=== PATIENT | male | born 1940 | race Caucasian/White ===

== ENCOUNTER 2023-10-09 15:45 | Inpatient (IN) | payer MEDICARE, OTHER, SELFPAY ==
[2023-10-09] VITALS (10 sets, daily range): BP systolic 103–178; BP diastolic 56–114; BMI 41.7
[2023-10-09 12:04] LABS: COVID-19 Antigen Negative (Negative)
[2023-10-09 12:05] LABS: Lactic Acid 1.5 mmol/L (0.7-2.0)
[2023-10-09 12:13] LABS: ALT (SGPT) 20 U/L (0-50); AST (SGOT) 28 U/L (17-59); Alkaline Phosphatase 119 U/L (38-126); Blood Urea Nitrogen 22 mg/dl (9-20); Calcium 8.7 mg/dl (8.4-10.2); Carbon Dioxide 28 mmol/L (22-30); Chloride 97 mmol/L (98-107); Glucose 128 mg/dl (70-99); Sodium 135 mmol/L (135-145); Total Bilirubin 0.8 mg/dl (0.2-1.3); Total Protein 7.3 g/dl (6.3-8.2); eGFR 45.91
[2023-10-09 12:44] LABS: % Basophils 0.6 % (0-2); % Immature Granulocytes 0.6 % (0-0.5); % Lymphocytes 8.9 % (20.5-51.1); % Monocytes 9.4 % (1.7-9.3); % Neutrophils 80.5 % (42.2-75.2); Absolute Lymphocytes 0.5 10^3/uL (1.2-3.4); Absolute Monocytes 0.5 10^3/uL (0.1-0.6); Absolute Neutrophils 4.4 10^3/uL (1.4-6.5); Hematocrit 41.1 % (39.0-52.0); Hemoglobin 13.9 g/dL (13.0-18.0); Mean Corp Hgb Conc. 33.8 g/dL (33.0-37.0); Mean Corpuscular Hgb 30.2 pg (27.0-31.0); Mean Corpuscular Volume 89.3 fL (80.0-94.0); Mean Platelet Volume 8.7 fL (7.4-10.4); Nucleated Red Blood Cells % 0 % (-); Platelet Count 181 10^3/uL (130-400); Red Cell Dist. Width 13.5 % (11.5-14.5); White Blood Cell Count 5.4 10^3/uL (4.8-10.8)
[2023-10-09] MEDS: VENTOLIN NEBULES 7.5 MG INH (13:14)
[2023-10-09] MEDS: DUONEB 3 ML INH ×2 (13:14→20:38)
[2023-10-09] MEDS: DECADRON 52.5 MG IV (13:30)
--- NOTE | 2023-10-09 14:15 | ED.GENMED ---
History of Present Illness
General
Chief Complaint: Cold/Flu/URI Symptoms
Source: patient and spouse
Exam Limitations: none
Time Seen by Provider: 10/09/23 12:18
Travel History
Have you had any contact with someone who has COVID-19?: No
Do you have any symptoms of coronavirus? Fever > 100 degrees, chills, cough, shortness of breath, sore throat, loss of taste or smell, muscle aches, or headache?: No
History of Present Illness
History of Present Illness:
Increase shortness of breath cough, weakness. Sore throat. Progressive over the last week.
Past History
Past History
ED Past Medical History: Arrthythmia (Atrial fib), Asthma, CAD, Cancer (renal cell carcinoma on the right), CHF, COPD, HTN, Hypercholesterolemia, NIDDM, [place], Other (Patton's esophagitis, rectal bleeding) and Other (obstructive Sleep apnea,
pneumonia, edema, diverticulitis, stomach ulcers, arthritis, PNA); Negative Renal failure (stage III a)
ED Past Surgical History: Cardiac (PTCA, cardioversion 2019), Tonsilectomy, Urological (right nephrectomy secondary to renal cell carcinoma) and Other (rectal Fistula surgery)
Social History
Tobacco: Non-smoker
Alcohol: None
Drug: None
Personal:
Living: with family
Employment: Retired
Family History
Family History: Other
Review of Systems
Review of Systems
All Other Systems: Not applicable
Respiratory: Reports cough; Denies hemoptysis
Cardiac: Denies chest pain
Phy Exam
Physical Exam
Physical Exam:
GENERAL: Alert. Erythematous cheeks. Initially mildly lethargic lying flat however sitting up after multiple nebulizers appears more alert
EYE: Orbits normal.
NECK: Supple, no significant adenopathy.
ENT: Pharynx without erythema
CARDIAC: Regular rate and rhythm without any obvious murmurs.
LUNGS: Diffuse expiratory wheezing and decreased breath sounds diffusely
ABDOMEN: Soft, without focal tenderness or distention
NEUROLOGICAL: Alert and oriented , grossly non-focal
SKIN: Warm and dry, no rash or lesion, no discoloration, skin intact.
MUSCULOSKELETAL: Mild edema bilaterally
PSYCH: Normal and appropriate interaction.
Course
Orders/Labs/Results
Orders:
Orders
10/09/23 11:29
CR Chest - 2 Views Urgent
Comment:
Reason For Exam: cough
10/09/23 11:37
COVID-19 Antigen Urgent
Source: Nasal Swab
Complete Blood Count/With Diff Urgent
Comprehensive Metabolic Panel Urgent
Lactic Acid Urgent
Blood Culture Urgent
MELISSA Source: Blood/Venous
Specimen Description:
Influenza A+B Rapid Molecular Urgent
MELISSA Source: Nasal Swab
Specimen Description:
10/09/23 13:09
Albuterol Sulfate [Ventolin Nebules] 7.5 mg INH R NOW STA
Ipratropium/Albuterol Sulfate [Duoneb] 3 ml INH R NOW STA
10/09/23 13:16
Dexamethasone Sod Phosphate [Decadron] 10 mg 0.9% Sodium Chloride 50 ml [Nss] 50 ml IV ONCE
Abnormal Lab Results
10/09/23
11:37
RBC 4.60 L 10^6/uL
(4.70-6.10)
Absolute Lymphs (auto) 0.5 L 10^3/uL
(1.2-3.4)
Immature Gran % 0.6 H %
(0-0.5)
Neutrophils % 80.5 H %
(42.2-75.2)
Lymphocytes % 8.9 L %
(20.5-51.1)
Monocytes % 9.4 H %
(1.7-9.3)
Chloride 97 L mmol/L
(98-107)
BUN 22 H mg/dl
(9-20)
Creatinine 1.5 H mg/dL
(0.7-1.3)
Glucose 128 H mg/dl
(70-99)
10/09/23 11:37
10/09/23 11:37
Vital Signs
Initial and Last Documented VS:
Initial Vital Signs
Temp Pulse Resp BP Pulse Ox
99.7 F 82 20 146/114 92
10/09/23 11:30 10/09/23 11:30 10/09/23 11:30 10/09/23 11:30 10/09/23 11:30
Last Documented Vital Signs
Temp Pulse Resp BP Pulse Ox
99.7 F 88 26 144/83 96
10/09/23 11:30 10/09/23 14:00 10/09/23 13:15 10/09/23 14:00 10/09/23 14:00
*Radiology
Radiology exam reviewed: radiology read reviewed (Negative)
*Pulse Oximetry
Patient hypoxic: yes
*Donor Floor Technician Interpretation
Rate: normal
Interpretation: normal
Heart Rate: 80
*Critical Care Note
Total Time (30-74mins, 75-104mins- exclusive of procedures): Not Applicable
Data Reviewed
Review of Other/Old Records Reveals: Labs and Records
Update Note
Update Note:
1420... Patient doing better however still diffuse expiratory wheezing. Pulse ox 94% but on extra oxygen.
ED Attending Note
-
Portions of this chart may have been created with voice recognition software.� Occasional wrong word or��sound alike� substitutions may have occurred due to the inherent limitations of voice recognition software.
Discharge Plan
Departure
Prescriptions:
No Action
atorvastatin 40 MG tablet
40 mg PO HS
Xarelto 20 MG tablet
20 mg PO QPM
Hold Instructions: Resume on 02/23/22.
coenzyme N30-eigpcgh E [Co Q-10 (with Vit E)] 1 EACH capsule
1 ea PO DAILY
mesalamine [Apriso] 0.375 GM capsule,extended release 24hr
0.375 g PO BID
pantoprazole 40 MG tablet,delayed release (DR/EC)
40 mg PO DAILY
nitroglycerin 0.4 MG tablet, sublingual
0.4 mg sublingual PRN PRN (Reason: chest pain)
potassium chloride 10 MEQ tablet,ER particles/crystals
10 meq PO DAILY
melatonin 5 mg Tablet
5 mg PO HS Qty: 0
fluticasone furoate-vilanterol [Breo Ellipta] 1 EACH blister with device
1 puff inhalation R DAILY
dofetilide 250 MCG capsule
250 mcg PO BID
Patient Comments:
02/13/22 pt is extremely adamant that he needs his second dose at 7 pm and not a minute later
dofetilide 125 MCG capsule
125 mcg PO BID
Patient Comments:
02/13/22 pt is extremely adamant that he needs his second dose at 7 pm and not a minute later
furosemide 40 mg tablet
40 mg PO DAILY
carvedilol 6.25 mg tablet
6.25 mg PO BID
glimepiride 2 mg tablet
2 mg PO DAILY
triamcinolone acetonide 0.1 % lotion
1 applic TOPICAL BID PRN (Reason: rash on body)
fluoride (sodium) [Sodium Fluoride 5000 Plus] 1.1 % cream
1 applic dental DAILY
sennosides-docusate sodium 8.6-50 mg Tablet
1 tab PO DAILYPRN PRN (Reason: constpation) Qty: 20 0RF
lisinopril 5 mg Tablet
5 mg PO DAILY Qty: 30 0RF
polyethylene glycol 3350 17 gram Powder In Packet
17 grams PO DAILY Qty: 30 0RF
cyanocobalamin (vitamin B-12) 1,000 mcg Tablet
1,000 mcg PO DAILY Qty: 30 0RF
amlodipine 5 mg Tablet
5 mg PO DAILY Qty: 30 0RF
meclizine 25 mg Tablet
25 mg PO Q8HPRN PRN (Reason: Vertigo or dizziness) Qty: 30 0RF
Referrals:
Macy Spring, [Family Provider] -
Interventions
Interventions:
*Risk Screen - Suicide Last Done: 10/09/23 11:30
*General Assessment Last Done: 10/09/23 11:30
*Neglect/Abuse Screening Last Done: 10/09/23 11:30
ED- Fall Risk Assessment Last Done: 10/09/23 12:14
*ED COVID-19 Vaccine History Last Done: 10/09/23 11:30
ED- Pulmonary Assessment Last Done: 10/09/23 12:14
--- NOTE | 2023-10-09 14:43 | PHANOTE ---
med rec note- patient said he does not know his medication, and to call his on file Amador, called both home and cell phone but no picked up. left message for call back
--- NOTE | 2023-10-09 15:25 | HPS.HSE ---
Family Physician
-
Family Physician: Macy Spring
Chief Complaint
-
Sore throat, cough, and shortness of breath
History of Present Illness
Patient started to have dry throat 67 days ago and then progressed to become very sore and his main symptom is sore throat. Following that he started to have cough but not much phlegm. With coughing he was also having abdominal pain.
He started become short of breath and he started to hear wheezing. His temperature was 2 degrees above his normal baseline. No chills.
He saw PCP was put on oral antibiotics which was just switched to doxycycline since yesterday.
He has a history of COPD. He is a non-smoker. He is on inhaler. He also has nebulizer which he uses as needed basis. Also had a prior history of CHF but weight has been stable and did not notice any leg edema.
Denies any chest pain or shortness of breath.
His COVID-19 and flu testing in the ER is negative. Chest x-ray shows no evidence of pneumonia. He received nebulizers and steroids in the ER with improvement.
Medical History
Past Medical History
Past Medical History: Reports Arrhythmia (afib s/p prior ablation), CAD ([place]), CHF, COPD, HTN, NIDDM and Renal Failure
Past Surgical History: Reports Tonsilectomy
Additional Past Surgical History:
Right nephrectomy for cancer
Social History
Tobacco: Non-smoker
Alcohol: None
Drug: None
Living: With Family
Family History
Family History: Not pertinent
Allergies / Home Medications
Allergies reflects when Allergies were last updated in [facility].
Home Medications with original date entered in [facility]
Allergy/Medication List:
Allergies
Allergy/AdvReac Type Severity Reaction Status Date / Time
grass pollen Allergy Itching Verified 10/09/23 11:34
Iodinated Contrast Media Allergy 'happened Verified 10/09/23 11:34
[Iodinated Contrast- Oral long ago'
and IV Dye]
Penicillins Allergy 'happened Verified 10/09/23 11:34
at least
50 years
ago'
tree and shrub pollen Allergy Itching Verified 10/09/23 11:34
Home Medications
atorvastatin 40 mg tablet 40 mg PO HS High cholesterol 08/16/14
rivaroxaban 20 mg tablet (Xarelto) 20 mg PO QPM Blood clot prevention/tx 04/16/18
coenzyme E44-nncefcw E 100 mg-5 unit capsule (Co Q-10 (with Vit E)) 1 ea PO DAILY Supplement 08/21/19
mesalamine 0.375 gram capsule,extended release 24 hr (Apriso) 0.375 g PO BID Gastrointestinal issue 08/21/19
pantoprazole 40 mg tablet,delayed release 40 mg PO DAILY Gastrointestinal issue 12/10/19
potassium chloride 10 mEq tablet,extended release(part/cryst) 10 meq PO DAILY ELECTROLYTE REPLETION 01/06/20
dofetilide 250 mcg capsule 250 mcg PO BID Arrhythmia 09/29/21
fluticasone furoate 100 mcg-vilanterol 25 mcg/dose inhalation powder (Breo Ellipta) 1 puff inhalation R DAILY Lung/breathing issues 09/29/21
dofetilide 125 mcg capsule 125 mcg PO BID Arrhythmia 11/27/21
carvedilol 6.25 mg tablet 6.25 mg PO BID Heart Failure 02/13/22
furosemide 40 mg tablet 40 mg PO DAILY Fluid retention/Swelling 02/13/22
amlodipine 5 mg tablet 5 mg PO DAILY #30 tabs 02/20/22
lisinopril 5 mg tablet 5 mg PO DAILY #30 tabs 02/20/22
benzonatate 200 mg capsule 200 mg PO BIDPRN PRN cough 10/09/23
doxycycline hyclate 100 mg tablet 100 mg PO BID 10/09/23
glipizide 5 mg tablet 5 mg PO DAILY 10/09/23
linagliptin 5 mg tablet (Tradjenta) 5 mg PO DAILY 10/09/23
Review of Systems
-
A 12 point ROS was completed and negative except as noted: Yes
Physical Exam
Vital Signs
Vital Signs
Temp Pulse Resp BP Pulse Ox
99.7 F 87 26 144/83 94
10/09/23 11:30 10/09/23 14:45 10/09/23 13:15 10/09/23 14:00 10/09/23 14:45
Physical Exam
General: No Apparent Distress
HEENT: Moist mucous membranes
Respiratory: Non Labored Respirations; No Wheezes (currently), Crackles or Accessory Resp Muscle Use
Cardiac: S1/S2 and Regular Rhythm; No Tachycardia
GI: Soft and Non Tender
Neuro: AO x 3
Psych: Calm
Laboratory Results
-
10/09/23 11:37
10/09/23 11:37
Laboratory Results
Lactic Acid 1.5 mmol/L (0.7-2.0) 10/09/23 11:37
Total Bilirubin 0.8 mg/dl (0.2-1.3) 10/09/23 11:37
AST 28 U/L (17-59) 10/09/23 11:37
ALT 20 U/L (0-50) 10/09/23 11:37
Alkaline Phosphatase 119 U/L (38-126) 10/09/23 11:37
Data Reviewed
-
Diagnostic Radiology: Report Reviewed by me (cxr)
Lab Data: Labs Reviewed by me
Impression/Plan
-
Acute sore throat with cough , shortness of breath and wheezing -suspect Respiratory illness/acute bronchitis precipitating a COPD flare. COVID-19/flu negative. Admit to hospital. Start on steroids and nebulizers. Continue with doxycycline which
was initiated by PCP yesterday. Follow culture data. Chest x-ray without evidence of pneumonia.
Chronic CHF with reduced EF -last echocardiogram and January 2022 shows EF of 35 to 40%. Clinically euvolemic. Continue with his home dose of Lasix
Atrial fibrillation -unknown type -clinical seems to be in sinus rhythm. Check abnormal EKG. Follow on telemetry. Continue with anticoagulation and digoxin.
CAD -status post prior [place]. No coronary stenting or CABG. Asymptomatic without chest pain. Continue with his beta-israel, statins . On anticoagulation with Xarelto for A-fib.
Hypertension-continue with his home medication
Diabetes mellitus type 2-continue with his oral hypoglycemic agents
CKD 3 Cr close to baseline -continue to follow
Status post prior right nephrectomy for cancer
Full code
[2023-10-09 16:32] LABS: NT-proBNP 927 pg/ml
[2023-10-09] MEDS: DUONEB INH (17:47)
[2023-10-09] MEDS: TIKOSYN 250 MCG PO (19:41)
[2023-10-09] MEDS: TIKOSYN 125 MCG PO (19:41)
[2023-10-09] MEDS: SYMBICORT 160/4.5 MCG INHALER 2 PUFF INH (20:38)
[2023-10-09] MEDS: COREG 6.25 MG PO (21:06)
[2023-10-09] MEDS: VIBRAMYCIN 100 MG PO (21:07)
[2023-10-09] MEDS: LIPITOR 40 MG PO (21:07)
[2023-10-09] MEDS: DECADRON 4 MG IV (21:10)
[2023-10-09] MEDS: XARELTO 20 MG PO (21:16)
[2023-10-09] MEDS: ROBITUSSIN DM 5 ML PO (21:17)
[2023-10-09 23:34] LABS: Glucose - Point of Care 248 mg/dl (70-99)
[2023-10-10] VITALS (7 sets, daily range): BP systolic 111–141; BP diastolic 48–76; PULSE 64; O2SAT 95; BMI 41.7; BMI 39.8
--- NOTE | 2023-10-10 02:05 | W.PN.UPDATE ---
Update Note
Progress Note Update
Nurse reports patient to be diaphoretic with stable VS. Patient denies any chest pain or SOB. EKG done due to Tachy rhythm on monitor. NSR with left bundle branch block noted as noted before. Will order labs for AM.
will order AccuCheck BID as noted BS 248. hx DM.
[2023-10-10] MEDS: DECADRON 4 MG IV ×4 (02:16→20:16)
[2023-10-10] MEDS: ANESTHETIC LOZENGE 1 LOZENGE PO ×3 (03:49→20:20)
--- NOTE | 2023-10-10 05:03 | PTCARENOTE ---
Pt very diaphoretic, sugar 248 pt drowsy but arouseable, BP 132/58- temp 97.4. EKG completed, House DISTRIBUTION SYSTEM OPERATOR aware order for accuchecks BID and mag level in AM.
--- NOTE | 2023-10-10 05:41 | PTCARENOTE ---
Pt 7 beat run pvcs, strip mounted on chart. House MASON LINER aware for labs this AM
[2023-10-10] MEDS: DUONEB 3 ML INH ×4 (07:39→19:49)
[2023-10-10] MEDS: SYMBICORT 160/4.5 MCG INHALER 2 PUFF INH ×2 (07:40→19:49)
[2023-10-10 07:41] LABS: Glucose - Point of Care 190 mg/dl (70-99)
[2023-10-10 08:03] LABS: Blood Urea Nitrogen 34 mg/dl (9-20); Calcium 8.2 mg/dl (8.4-10.2); Carbon Dioxide 22 mmol/L (22-30); Chloride 101 mmol/L (98-107); Estimated Creatinine Clearance 41 ml/min; Glucose 212 mg/dl (70-99); Potassium 3.9 mmol/L (3.5-5.1); Sodium 133 mmol/L (135-145); eGFR 42.49
[2023-10-10] MEDS: GLUCOTROL 5 MG PO (08:09)
[2023-10-10] MEDS: FLUSH (NSS) 1 FLUSH IV ×2 (08:09→14:49)
[2023-10-10] MEDS: TIKOSYN 250 MCG PO ×2 (08:09→20:18)
[2023-10-10] MEDS: PROTONIX 40 MG PO (08:10)
[2023-10-10] MEDS: LASIX 40 MG PO (08:10)
[2023-10-10] MEDS: TIKOSYN 125 MCG PO ×2 (08:10→20:18)
[2023-10-10] MEDS: NORVASC 5 MG PO (08:10)
[2023-10-10] MEDS: VIBRAMYCIN 100 MG PO ×2 (08:11→20:19)
[2023-10-10] MEDS: JANUVIA 100 MG PO (08:11)
[2023-10-10] MEDS: KCL 10 MEQ PO (08:11)
[2023-10-10] MEDS: COREG 6.25 MG PO ×2 (08:11→20:26)
[2023-10-10] MEDS: ZESTRIL 5 MG PO (08:11)
--- NOTE | 2023-10-10 11:11 | W.PN.HOSP.TC ---
Today's Communication/Plan
-
Continue with current treatment
If continued improvement likely dc in am
Assessment / Plan
Assessment / Plan
Acute sore throat with cough , shortness of breath and wheezing -suspect Respiratory illness/acute bronchitis precipitating a COPD flare.� COVID-19/flu negative.� Some improvement .Off of O2 this am.cw on steroids and nebulizers.� Continue with
doxycycline which was initiated by PCP 10/07.� Follow culture data.� Chest x-ray without evidence of pneumonia.
Chronic CHF with reduced EF -last echocardiogram and January 2022 shows EF of 35 to 40%.� Clinically euvolemic.� Continue with his home dose of Lasix
Atrial fibrillation -unknown type -clinical seems to be in sinus rhythm.� EKG in SR with chronic LBBB.� Follow on telemetry.� Continue with anticoagulation and digoxin.
CAD -status post prior [place].� No coronary stenting or CABG.� Asymptomatic without chest pain.� Continue with his beta-israel, statins .� On anticoagulation with Xarelto for A-fib.
Hypertension-continue with his home medication
Diabetes mellitus type 2-continue with his oral hypoglycemic agents
CKD 3 Cr close to baseline -continue to follow
Status post prior right nephrectomy for cancer
Full code
Anticipated Discharge: 24 - 48 hours
Subjective/Interval History
-
Date of Service: October 10, 2023
Feels improved with regards to cough and breathing.
Still has some sore throat and point to tracheal area not pharynx
Objective Data
-
Labs:
Laboratory Results
10/10/23
06:45
Sodium 133 L
Potassium 3.9
Chloride 101
Carbon Dioxide 22
BUN 34 H
Creatinine 1.6 H
Glucose 212 H
Calcium 8.2 L
Vital Signs:
Vital Signs
Temp Pulse Resp BP Pulse Ox
97.6 F 64 18 116/69 95
10/10/23 10:45 10/10/23 10:45 10/10/23 10:45 10/10/23 10:45 10/10/23 10:45
I&O
10/09/23 10/10/23 10/11/23
06:59 06:59 06:59
Output Total 200 / 200
Balance -200 / -200
Review of Systems
-
Constitutional: Denies Fever
Cardiac: Denies Chest Pain
Abdomen/GI: Denies Abdominal Pain, Nausea or Vomiting
Neuro: Denies Dizzy
Physical Exam
-
General: No Apparent Distress
HEENT: Moist Mucous Membranes and Other (no anterior cervical tenderness)
Respiratory: Clear to Auscultation; Negative Wheezes or Crackles
Cardiac: Regular Rhythm and S1/S2
GI: Soft
Neuro: AO x 3
Psych: Calm
Data Reviewed
-
Labs: Labs Reviewed by me
[2023-10-10 11:57] LABS: Glucose - Point of Care 231 mg/dl (70-99)
[2023-10-10] MEDS: NON-FORMULARY ITEM PO ×2 (15:00→20:17)
[2023-10-10] MEDS: NON-FORMULARY ITEM 0.375 GRAMS PO (15:16)
--- NOTE | 2023-10-10 16:13 | CM ---
Alert awake oriented patient who lives with his with Amador who lives in a 2 story home with 2 step to enter and 14 steps bed and bathroom. He is independent in driving and in all activities of daily living.He was offered Vn he declined need.Hx of
CPAP usage not anymore.
[facility] hx/Brady history
Pharmacy [facility]
PCP DR Mcgowan
PLAN Home Declined VN
[2023-10-10 16:50] LABS: Glucose - Point of Care 259 mg/dl (70-99)
--- NOTE | 2023-10-10 16:56 | PTCARENOTE ---
Pt AAO x3, MARIN; OOB to chair for most of shift; ambulatory to BR; denies weakness/dizziness. VSS. Telemetry:NSR with first degree AVB, BBC. On room air- pulse ox 95%, no c/o SOB. Abd large, soft, ainsley PO well. Voiding in BR without difficulty,
not monitoring output. resting comfortably at present, no c/o. Will continue to monitor.
[2023-10-10] MEDS: XARELTO 20 MG PO (18:26)
[2023-10-10] MEDS: TYLENOL 650 MG PO (20:19)
[2023-10-10 21:09] LABS: Glucose - Point of Care 252 mg/dl (70-99)
[2023-10-10] MEDS: LIPITOR 40 MG PO (21:26)
[2023-10-10] MEDS: ROBITUSSIN DM 5 ML PO (23:17)
[2023-10-11] MEDS: DECADRON 4 MG IV ×3 (03:16→17:04)
[2023-10-11 03:46] VITALS: BP 138/71
[2023-10-11 05:18] VITALS: BMI 40.1
[2023-10-11] MEDS: DUONEB 3 ML INH ×4 (07:29→19:26)
[2023-10-11] MEDS: SYMBICORT 160/4.5 MCG INHALER 2 PUFF INH ×2 (07:33→19:26)
[2023-10-11 07:35] VITALS: BP 120/63
[2023-10-11 07:36] LABS: Glucose - Point of Care 193 mg/dl (70-99)
[2023-10-11 07:51] VITALS: BMI 40.1
[2023-10-11] MEDS: PROTONIX 40 MG PO (08:08)
[2023-10-11] MEDS: GLUCOTROL 5 MG PO (08:08)
[2023-10-11] MEDS: TIKOSYN 125 MCG PO ×2 (08:09→21:53)
[2023-10-11] MEDS: TIKOSYN 250 MCG PO ×2 (08:09→21:53)
[2023-10-11] MEDS: COREG 6.25 MG PO ×2 (08:09→21:52)
[2023-10-11] MEDS: JANUVIA 100 MG PO (08:09)
[2023-10-11] MEDS: ZESTRIL 5 MG PO (08:09)
[2023-10-11] MEDS: KCL 10 MEQ PO (08:10)
[2023-10-11] MEDS: VIBRAMYCIN 100 MG PO ×2 (08:10→21:52)
[2023-10-11] MEDS: LASIX 40 MG PO (08:10)
[2023-10-11] MEDS: NORVASC 5 MG PO (08:10)
[2023-10-11] MEDS: NON-FORMULARY ITEM 0.375 GRAMS PO (08:13)
[2023-10-11] MEDS: ANESTHETIC LOZENGE 1 LOZENGE PO ×3 (08:34→21:52)
--- NOTE | 2023-10-11 10:51 | W.PN.HOSP.TC ---
Today's Communication/Plan
-
Wean steroids
CW nebs and abx
Add mucinex
CW antitussives
Assessment / Plan
Assessment / Plan
Acute sore throat with cough , shortness of breath and wheezing -suspect Respiratory illness/acute bronchitis precipitating a COPD flare.� COVID-19/flu negative.� Some improvement .Off of O2 this am.cw on steroids-wean and nebulizers.� Continue with
doxycycline which was initiated by PCP 10/07.� Follow culture data.� Chest x-ray without evidence of pneumonia.
Added mucinex.
Chronic CHF with reduced EF -last echocardiogram and January 2022 shows EF of 35 to 40%.� Clinically euvolemic.� Continue with his home dose of Lasix.Follow Wt daily.
Atrial fibrillation -unknown type -clinical seems to be in sinus rhythm.� EKG in SR with chronic LBBB.� Follow on telemetry.� Continue with anticoagulation and digoxin.
CAD -status post prior [place].� No coronary stenting or CABG.� Asymptomatic without chest pain.� Continue with his beta-israel, statins .� On anticoagulation with Xarelto for A-fib.
Hypertension-continue with his home medication
Diabetes mellitus type 2-continue with his oral hypoglycemic agents and SSI
CKD 3 Cr close to baseline -continue to follow
Status post prior right nephrectomy for cancer
Full code
CW PT eval .
Anticipated Discharge: 24 - 48 hours
Subjective/Interval History
-
Date of Service: October 11, 2023
Sore throat now getting better.
Cough present but difficult to expectorate
Breathing better ;remains off of O2
Objective Data
-
Vital Signs:
Vital Signs
Temp Pulse Resp BP Pulse Ox
97.6 F 66 18 120/63 93
10/11/23 07:35 10/11/23 08:09 10/11/23 07:41 10/11/23 08:09 10/11/23 07:41
I&O
10/10/23 10/11/23 10/12/23
06:59 06:59 06:59
Intake Total 960 / 960
Output Total 200 / 200
Balance 760 / 760
Review of Systems
-
Constitutional: Denies Fever or Chills
Cardiac: Denies Chest Pain
Abdomen/GI: Denies Abdominal Pain, Nausea or Vomiting
Neuro: Denies Dizzy
Physical Exam
-
General: No Apparent Distress
HEENT: Moist Mucous Membranes
Respiratory: Rhonchi (BL) and Non Labored Respirations; Negative Accessory Resp Muscle Use
Cardiac: Regular Rhythm and S1/S2
Neuro: AO x 3
Psych: Calm; Negative Confused
[2023-10-11 11:26] VITALS: BP 126/60
--- NOTE | 2023-10-11 11:53 | PN.CDI ---
CDI
- -
CDI:
Physician Documentation Request
Admit Date: 10/09/23 15:45
Dear Doctor Evangelist,
Clinical Indicators:
Height: 5 ft 6 inch
Weight: 257 (10/08)
BMI: 41.7 (10/08)
If possible, please provide an associated diagnosis related to the abnormal BMI, such as:
BMI > or = to 40
Overweight
Obesity:
Due to excess calories
Drug induced
Due to other cause
Severe or morbid obesity:
With alveolar hypoventilation (Obesity hypoventilation syndrome)
Without alveolar hypoventilation
- BMI is not significant
- Other
- Unable to determine
Use of terms such as suspected, likely, concern for, or probable (associated with a specific diagnosis that is being evaluated, monitored, or treated as if it exists) are acceptable and can be coded in the inpatient setting, when documented at the
time of discharge.
Thank you,
Quynh Wells RN, BSN
CDI Specialist
tiger text
Please use your independent medical judgment in providing your response.
[2023-10-11] MEDS: MUCINEX 600 MG PO ×2 (12:59→21:52)
[2023-10-11 15:27] VITALS: BP 128/59
[2023-10-11] MEDS: XARELTO 20 MG PO (17:04)
[2023-10-11 19:21] VITALS: BP 114/57
[2023-10-11 21:09] LABS: Glucose - Point of Care 249 mg/dl (70-99)
[2023-10-11] MEDS: LIPITOR 40 MG PO (21:53)
[2023-10-11] MEDS: NON-FORMULARY ITEM PO (21:56)
[2023-10-11 23:44] VITALS: BP 113/48
[2023-10-12] MEDS: DECADRON 4 MG IV ×4 (01:06→23:09)
[2023-10-12 03:44] VITALS: BP 124/61
[2023-10-12] MEDS: ROBITUSSIN DM 5 ML PO (03:47)
[2023-10-12 05:45] VITALS: BMI 39.9
[2023-10-12 06:55] LABS: Blood Urea Nitrogen 59 mg/dl (9-20); Calcium 8.1 mg/dl (8.4-10.2); Carbon Dioxide 22 mmol/L (22-30); Chloride 103 mmol/L (98-107); Estimated Creatinine Clearance 39 ml/min; Glucose 194 mg/dl (70-99); Sodium 136 mmol/L (135-145); eGFR 39.51
[2023-10-12 07:14] LABS: Glucose - Point of Care 211 mg/dl (70-99)
[2023-10-12 07:15] VITALS: BP 128/67
[2023-10-12] MEDS: DUONEB 3 ML INH ×4 (07:40→19:23)
[2023-10-12] MEDS: SYMBICORT 160/4.5 MCG INHALER 2 PUFF INH ×2 (07:40→19:22)
[2023-10-12] MEDS: GLUCOTROL 5 MG PO (08:17)
[2023-10-12] MEDS: PROTONIX 40 MG PO (08:17)
[2023-10-12] MEDS: JANUVIA 100 MG PO (08:17)
[2023-10-12] MEDS: MUCINEX 600 MG PO ×2 (08:17→20:00)
[2023-10-12] MEDS: VIBRAMYCIN 100 MG PO ×2 (08:17→20:00)
[2023-10-12] MEDS: KCL 10 MEQ PO (08:18)
[2023-10-12] MEDS: COREG 6.25 MG PO ×2 (08:18→20:00)
[2023-10-12] MEDS: NORVASC 5 MG PO (08:19)
[2023-10-12] MEDS: ZESTRIL 5 MG PO (08:19)
[2023-10-12] MEDS: LASIX 40 MG PO (08:20)
[2023-10-12] MEDS: NON-FORMULARY ITEM 0.375 GRAMS PO (08:21)
[2023-10-12] MEDS: TIKOSYN 125 MCG PO ×2 (08:58→19:59)
[2023-10-12] MEDS: TIKOSYN 250 MCG PO ×2 (08:58→19:59)
[2023-10-12 11:10] VITALS: BP 117/54
--- NOTE | 2023-10-12 12:35 | W.PN.HOSP.TC ---
Addendum entered and electronically signed by Jamal Blanca MD 10/12/23 18:04:
BMI 41.7 indicating obesity due to excess calories
Original Note:
Today's Communication/Plan
-
Continue with current dose of steroids without taper. Continue nebulizers and doxycycline.
Assessment / Plan
Assessment / Plan
Acute sore throat with cough , shortness of breath and wheezing -suspect respiratory illness/acute bronchitis precipitating a COPD flare.� COVID-19/flu negative.� Some continued improvement .Remains Off of O2 .cw on steroids without taper and
nebulizers.� Continue with doxycycline which was initiated by PCP 10/07.� Follow culture data.� Chest x-ray without evidence of pneumonia.
cw mucinex.
Chronic CHF with reduced EF -last echocardiogram and January 2022 shows EF of 35 to 40%.� Clinically euvolemic.Wt stable. Continue with his home dose of Lasix.Follow Wt daily.
Atrial fibrillation -unknown type -clinical seems to be in sinus rhythm.� EKG in SR with chronic LBBB.� Follow on telemetry.� Continue with anticoagulation and digoxin.
CAD -status post prior [place].� No coronary stenting or CABG.� Asymptomatic without chest pain.� Continue with his beta-israel, statins .� On anticoagulation with Xarelto for A-fib.
Hypertension-continue with his home medication
Diabetes mellitus type 2-continue with his oral hypoglycemic agents and SSI
CKD 3 Cr close to baseline -continue to follow
Status post prior right nephrectomy for cancer
Full code
CW PT eval .
Anticipated Discharge: 24 - 48 hours
Subjective/Interval History
-
Date of Service: October 12, 2023
Making slow progress-less sore throat, cough improved but persistent. Not short of breath at rest.
No fever or chills.
No chest pains or palpitations.
Objective Data
-
Labs:
Laboratory Results
10/12/23
05:27
Sodium 136
Potassium 4.0
Chloride 103
Carbon Dioxide 22
BUN 59 H
Creatinine 1.7 H
Glucose 194 H
Calcium 8.1 L
Vital Signs:
Vital Signs
Temp Pulse Resp BP Pulse Ox
98 F 65 16 117/54 93
10/12/23 11:10 10/12/23 11:47 10/12/23 11:47 10/12/23 11:10 10/12/23 11:10
I&O
10/11/23 10/12/23 10/13/23
06:59 06:59 06:59
Intake Total 960 / 960 900 / 900
Output Total 200 / 200
Balance 760 / 760 900 / 900
Review of Systems
-
Abdomen/GI: Denies Abdominal Pain, Nausea or Vomiting
Genitourinary: Denies Dysuria
Neuro: Denies Dizzy
Physical Exam
-
General: No Apparent Distress
HEENT: Moist Mucous Membranes
Respiratory: Wheezes (BL) and Non Labored Respirations; Negative Accessory Resp Muscle Use
Cardiac: Regular Rhythm and S1/S2
GI: Soft
Neuro: AO x 3
Psych: Calm; Negative Confused
Data Reviewed
-
Labs: Labs Reviewed by me
[2023-10-12 15:15] VITALS: BP 120/57
[2023-10-12 17:43] LABS: Glucose - Point of Care 278 mg/dl (70-99)
[2023-10-12] MEDS: XARELTO 20 MG PO (17:43)
[2023-10-12 19:32] VITALS: BP 126/64
[2023-10-12] MEDS: LIPITOR 40 MG PO (20:00)
[2023-10-12] MEDS: NON-FORMULARY ITEM PO (20:01)
[2023-10-12 23:05] VITALS: BP 118/61
--- NOTE | 2023-10-13 02:31 | PTCARENOTE ---
Patient awake, He is oriented but confused. He wants to go home now and does not remember who I am. He also took off his heart monitor and is refusing to wear it at this time. At present he is sitting on the side of his bed.
[2023-10-13 03:03] VITALS: BP 127/71
[2023-10-13 05:06] VITALS: BMI 40.2
[2023-10-13 07:04] LABS: Glucose - Point of Care 190 mg/dl (70-99)
[2023-10-13 07:22] VITALS: BP 133/64
[2023-10-13] MEDS: SYMBICORT 160/4.5 MCG INHALER 2 PUFF INH ×2 (07:27→20:39)
[2023-10-13] MEDS: DUONEB 3 ML INH ×4 (07:27→20:38)
[2023-10-13 07:53] LABS: Hemoglobin 12.3 g/dL (13.0-18.0); Mean Corp Hgb Conc. 34.2 g/dL (33.0-37.0); Mean Corpuscular Hgb 30.2 pg (27.0-31.0); Mean Corpuscular Volume 88.5 fL (80.0-94.0); Mean Platelet Volume 9.3 fL (7.4-10.4); Platelet Count 186 10^3/uL (130-400); Red Blood Cell Count 4.07 10^6/uL (4.70-6.10); Red Cell Dist. Width 13.5 % (11.5-14.5)
[2023-10-13] MEDS: ZESTRIL 5 MG PO (08:09)
[2023-10-13] MEDS: NORVASC 5 MG PO (08:12)
[2023-10-13] MEDS: COREG 6.25 MG PO ×2 (08:12→20:09)
[2023-10-13] MEDS: LASIX 40 MG PO (08:13)
[2023-10-13] MEDS: KCL 10 MEQ PO (08:14)
[2023-10-13] MEDS: VIBRAMYCIN 100 MG PO ×2 (08:14→20:10)
[2023-10-13] MEDS: GLUCOTROL 5 MG PO (08:14)
[2023-10-13] MEDS: PROTONIX 40 MG PO (08:15)
[2023-10-13] MEDS: JANUVIA 100 MG PO (08:15)
[2023-10-13] MEDS: MUCINEX 600 MG PO ×2 (08:15→20:10)
[2023-10-13] MEDS: NON-FORMULARY ITEM 0.375 GRAMS PO (08:16)
[2023-10-13] MEDS: DECADRON 4 MG IV ×2 (08:18→20:10)
[2023-10-13] MEDS: TIKOSYN 250 MCG PO (08:19)
[2023-10-13] MEDS: TIKOSYN 125 MCG PO (08:20)
[2023-10-13 08:32] LABS: Blood Urea Nitrogen 56 mg/dl (9-20); Carbon Dioxide 25 mmol/L (22-30); Chloride 105 mmol/L (98-107); Estimated Creatinine Clearance 39 ml/min; Glucose 196 mg/dl (70-99); Potassium 4.1 mmol/L (3.5-5.1); Sodium 135 mmol/L (135-145); eGFR 39.51
[2023-10-13 11:56] VITALS: BP 120/65
--- NOTE | 2023-10-13 12:46 | W.PN.HOSP.TC ---
Today's Communication/Plan
-
seee plan above
Assessment / Plan
Assessment / Plan
Acute sore throat with cough , shortness of breath and wheezing -suspect respiratory illness/acute bronchitis precipitating a COPD flare.� COVID-19/flu negative.� Some continued improvement .Remains Off of O2 .cw on steroids-start taper tocday and
nebulizers.� Continue with doxycycline which was initiated by PCP 10/07.� Follow culture data.� Chest x-ray without evidence of pneumonia.
cw mucinex.
Chronic CHF with reduced EF -last echocardiogram and January 2022 shows EF of 35 to 40%.� Clinically euvolemic.Wt stable ,in fact on lower side. Continue with his home dose of Lasix.Follow Wt daily.
Atrial fibrillation -unknown type -clinical seems to be in sinus rhythm.� EKG in SR with chronic LBBB.� Follow on telemetry.� Continue with anticoagulation and digoxin. On Tikosyn - decrease dose to 125mcg as QTc >500 on this admission ; telemetry
without any ventricular events. Consult cardiology. Repeat EKG for QTc monitoring in a.m. and if still with more than 500 may have to discontinue it.
CAD -status post prior VT.� No coronary stenting or CABG.� Asymptomatic without chest pain.� Continue with his beta-israel, statins .� On anticoagulation with Xarelto for A-fib.
Hypertension-continue with his home medication ;with slight higher than baseline Cr hold ACEI for now and follow
Diabetes mellitus type 2-continue with his oral hypoglycemic agents and SSI
CKD 3 Cr close to baseline -continue to follow
Status post prior right nephrectomy for cancer
Full code
CW PT eval .
DW cardiology today
Anticipated Discharge: Within 24 hours
Subjective/Interval History
-
Date of Service: October 13, 2023
Continued improvement of the sore throat and cough.
Denies shortness of breath. Remains on room air.
No fever or chills.
Objective Data
-
Labs:
Laboratory Results
10/13/23
06:40
WBC 9.0
Hgb 12.3 L
Hct 36.0 L
Plt Count 186
Sodium 135
Potassium 4.1
Chloride 105
Carbon Dioxide 25
BUN 56 H
Creatinine 1.7 H
Glucose 196 H
Calcium 8.0 L
Vital Signs:
Vital Signs
Temp Pulse Resp BP Pulse Ox
97.5 F 55 16 120/65 94
10/13/23 11:56 10/13/23 11:56 10/13/23 11:56 10/13/23 11:56 10/13/23 11:56
I&O
10/12/23 10/13/23 10/14/23
06:59 06:59 06:59
Intake Total 900 / 900 1500 / 1500
Balance 900 / 900 1500 / 1500
Review of Systems
-
Cardiac: Denies Chest Pain
Abdomen/GI: Denies Abdominal Pain, Nausea or Vomiting
Neuro: Denies Dizzy
Physical Exam
-
General: No Apparent Distress
HEENT: Moist Mucous Membranes
Respiratory: Wheezes (faint occasional wheeze in rt lower zone today) and Non Labored Respirations; Negative Accessory Resp Muscle Use
Cardiac: Regular Rhythm and S1/S2
GI: Soft
Neuro: AO x 3
Data Reviewed
-
Labs: Labs Reviewed by me
--- NOTE | 2023-10-13 15:04 | CM ---
Patient seen, reports he is not having a good day. Cardio consulted. CM will continue to follow for discharge planning needs.
Plan; home with , no needs.
[2023-10-13 15:05] VITALS: BP 115/53
--- NOTE | 2023-10-13 15:22 | CON.CAR ---
Consultation
Consultation Request
Date/Time Consultation Requested: 10/13/2023 at 1250
Date/Time Consultation Performed: 10/13/2023 at 1330
Requesting Provider: Jamal Blanca MD
Performing Provider: Chuck Amado DO
Reason for Consultation: Dofetilide, QT prolongation
Medical History
-
Chief Complaint: Cough, Congestion, Sore Throat
History of Present Illness:
Patient is a pleasant 83-year-old male with a past medical history significant for paroxysmal atrial fibrillation status post PVI 2014, CAD status post PCI 2013, heart failure with reduced ejection fraction, COPD, hypertension, diabetes mellitus
type 2, renal cell carcinoma status post nephrectomy who presented due to sore throat and persistent cough who is undergone treatment for upper respiratory infection/acute bronchitis. Cardiology consulted for further discussion regarding dofetilide
dosing. In discussion with patient, since admission, he reports improvement in his sore throat and cough. He denies any chest pain, shortness of breath, palpitations, lightheadedness, dizziness, near-syncope, syncope, PND, orthopnea, or weakness.
He notes persistent production with cough and notes a very thick multicolored mucus. Denies fevers or chills at this time. Patient is non-smoker, no alcohol, no illicits. Patient follows closely with Dr. Adam for cardiovascular care, and
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
Past Medical History
Past Medical History: Other (See HPI)
Past Surgical History: Other (Right nephrectomy)
Social History
Tobacco: Non-Smoker
Alcohol: None
Drug: None
Living: With Family
Family History
Family History: Reviewed & Not Pertinent
Allergies / Home Medications
Allergy/AdvReac Type Severity Reaction Status Date / Time
grass pollen Allergy Itching Verified 10/09/23 11:34
Iodinated Contrast Media Allergy 'happened Verified 10/09/23 11:34
[Iodinated Contrast- Oral long ago'
and IV Dye]
Penicillins Allergy 'happened Verified 10/09/23 11:34
at least
50 years
ago'
tree and shrub pollen Allergy Itching Verified 10/09/23 11:34
Medication Instructions Recorded Confirmed Type
atorvastatin 40 mg tablet 40 mg PO QPM High cholesterol 08/16/14 10/09/23 History
rivaroxaban 20 mg tablet (Xarelto) 20 mg PO QPM Blood clot 04/16/18 10/09/23 History
prevention/tx
mesalamine 0.375 gram 0.375 g PO DAILY Gastrointestinal 08/21/19 10/09/23 History
capsule,extended release 24 hr issue
(Apriso)
pantoprazole 40 mg tablet,delayed 40 mg PO DAILY Gastrointestinal 12/10/19 10/09/23 History
release issue
potassium chloride 10 mEq 10 meq PO DAILY ELECTROLYTE 01/06/20 10/09/23 History
tablet,extended release(part/cryst) REPLETION
dofetilide 250 mcg capsule 250 mcg PO BID Arrhythmia 09/29/21 10/09/23 History
fluticasone furoate 100 1 puff inhalation R DAILY 09/29/21 10/09/23 History
mcg-vilanterol 25 mcg/dose Lung/breathing issues
inhalation powder (Breo Ellipta)
dofetilide 125 mcg capsule 125 mcg PO BID Arrhythmia 11/27/21 10/09/23 History
carvedilol 6.25 mg tablet 6.25 mg PO BID Heart Failure 02/13/22 10/09/23 History
furosemide 40 mg tablet 40 mg PO DAILY Fluid 02/13/22 10/09/23 History
retention/Swelling
amlodipine 5 mg tablet 5 mg PO DAILY Blood Pressure 10/09/23 10/09/23 History
benzonatate 200 mg capsule 200 mg PO BIDPRN PRN cough 10/09/23 10/09/23 History
coQ10 (ubiquinol) 100 mg capsule 100 mg PO DAILY 10/09/23 10/09/23 History
cyanocobalamin (vitamin B-12) 1,000 mcg PO DAILY 10/09/23 10/09/23 History
1,000 mcg tablet
doxycycline hyclate 100 mg tablet 100 mg PO BID Infection 10/09/23 10/09/23 History
glipizide 5 mg tablet 5 mg PO DAILY diabetes 10/09/23 10/09/23 History
linagliptin 5 mg tablet (Tradjenta) 5 mg PO DAILY diabetes 10/09/23 10/09/23 History
lisinopril 5 mg tablet 5 mg PO DAILY Blood Pressure 10/09/23 10/09/23 History
Review of Systems
-
History Source: Patient
Constitutional: No Symptoms
EENT: Sore Throat
Respiratory: Cough (Productive, multicolored)
Cardiac: No Symptoms
Abdomen/GI: No Symptoms
: No Symptoms
Musculoskeletal: No Symptoms
Skin: No Symptoms
Neurological: No Symptoms
Endocrine: No Symptoms
Hematologic/Lymphatic: No Symptoms
Physical Exam
Vital Signs
Temp Pulse Resp BP Pulse Ox
97.5 F 55 16 120/65 94
10/13/23 11:56 10/13/23 11:56 10/13/23 11:56 10/13/23 11:56 10/13/23 11:56
Lab Results
10/13/23 06:40
10/13/23 06:40
Uid-E-Haecvmwygmj Pept 927 pg/ml 10/09/23 11:37
Physical Exam
General: Well Developed, Well Nourished, No Apparent Distress and Comfortable
HEENT: Normocephalic, Anicteric and Moist Mucous Membranes
Respiratory: Wheezes, Rhonchi and Non Labored Respirations
Cardiac: S1/S2, Regular Rhythm (Bradycardic) and Other (No murmur, rub, or gallop)
GI: Soft, Non Tender and Non Distended
Musculoskeletal: No Clubbing, No Cyanosis and No Edema
Skin: Warm and Dry
Neuro: AO x 3 and Nonfocal/Grossly Intact
Psych: Calm
Impression / Plan
-
TTE 01/2022: Mild septal hypertrophy, mild to moderate global LV decreased function, EF 35 to 40%, grade 1 diastolic dysfunction, mild MR, mildly dilated LA, enlarged RV size with normal systolic function.
.
PCP:Macy Spring
Stapler Hand: García Adam MD
.
Assessment:
*Atrial fibrillation, paroxysmal
� Status post PVI 2014
� [id number]: 6, (HF, hypertension, age, diabetes, vascular disease), on Xarelto for stroke risk reduction
� Previously rhythm control with dofetilide 375 mcg twice daily; prior to admission creatinine clearance greater than 40, currently between 30 and 40; QT/QTc variable in the setting of left bundle branch block
��QT/QTc: 11/2022: 504/535 ms, 04/2023 430/512 ms, 10/09/2023 464/522 ms, 10/10/2023: 510/526 ms, 10/13/2023: 540/521 ms
� Rate controlled with carvedilol 6.25 twice daily
�No arrhythmias noted on telemetry
*Upper respiratory infection, improving
� Noted productive multicolored cough
� On nebs, steroids, antibiotic therapy
*Acute on chronic obstructive pulmonary disease, related to above
*Chronic heart failure with reduced ejection fraction, euvolemic on exam
� Goal-directed medical therapy with carvedilol, lisinopril, atorvastatin; Lasix 40 mg daily
� Lisinopril currently on hold due to creatinine of 1.7 (up from baseline)
� Mixed cardiomyopathy, ischemic and dilated
*CAD status post PCI 2013, stable
*Hypertension, stable
*CKD stage IIIb; baseline creatinine 1.4-1.5; currently 1.7
*Right renal cell carcinoma status post right nephrectomy
Recommendations:
� Due to increased renal function (worsening creatinine clearance from baseline) and mild increase in his QT/QTc, will recommend holding dofetilide for today reassessing with EKG in the morning. Tentatively plan for resuming dofetilide 125 mcg
twice daily
� Continue Xarelto for stroke risk reduction
� Lisinopril on hold currently due to renal function, continue to monitor
� Appears euvolemic at baseline currently, no further diuresis
� Antibiotics and respiratory therapy per primary service
� Monitor on telemetry
� Repeat echocardiogram
Data Reviewed
-
EKG: Tracing Personally Visualized and interpreted
Radiology: Report Reviewed by me
Medical Tests (Nuc Med, Echo etc): Report Reviewed by me
Labs: Labs Reviewed by me
Old Records: Reviewed
[2023-10-13 16:36] LABS: Glucose - Point of Care 270 mg/dl (70-99)
[2023-10-13] MEDS: XARELTO 20 MG PO (17:26)
[2023-10-13 19:18] VITALS: BP 126/61
[2023-10-13] MEDS: LIPITOR 40 MG PO (20:10)
[2023-10-13] MEDS: NON-FORMULARY ITEM PO (20:10)
[2023-10-13 23:32] VITALS: BP 105/47
[2023-10-14 03:08] VITALS: BP 122/65
[2023-10-14 04:32] VITALS: BMI 40.1
[2023-10-14 07:00] VITALS: BP 135/72
[2023-10-14] MEDS: SYMBICORT 160/4.5 MCG INHALER 2 PUFF INH ×2 (07:44→19:48)
[2023-10-14] MEDS: DUONEB 3 ML INH ×4 (07:45→19:48)
[2023-10-14 07:47] LABS: Blood Urea Nitrogen 55 mg/dl (9-20); Calcium 8.3 mg/dl (8.4-10.2); Carbon Dioxide 26 mmol/L (22-30); Chloride 101 mmol/L (98-107); Estimated Creatinine Clearance 47 ml/min; Glucose 231 mg/dl (70-99); Potassium 4.3 mmol/L (3.5-5.1); Sodium 136 mmol/L (135-145); eGFR 49.87
[2023-10-14] MEDS: DECADRON 4 MG IV ×2 (08:20→21:01)
[2023-10-14] MEDS: PROTONIX 40 MG PO (08:20)
[2023-10-14] MEDS: JANUVIA 100 MG PO (08:20)
[2023-10-14] MEDS: LASIX 40 MG PO (08:21)
[2023-10-14] MEDS: NORVASC 5 MG PO (08:21)
[2023-10-14] MEDS: KCL 10 MEQ PO (08:21)
[2023-10-14] MEDS: COREG 6.25 MG PO ×2 (08:21→21:02)
[2023-10-14] MEDS: GLUCOTROL 5 MG PO (08:21)
[2023-10-14] MEDS: VIBRAMYCIN 100 MG PO ×2 (08:21→21:02)
[2023-10-14] MEDS: MUCINEX 600 MG PO ×2 (08:21→21:02)
[2023-10-14] MEDS: NON-FORMULARY ITEM 0.375 GRAMS PO (08:22)
[2023-10-14 08:43] LABS: Glucose - Point of Care 244 mg/dl (70-99)
[2023-10-14 11:00] VITALS: BP 131/69
[2023-10-14] MEDS: TIKOSYN 250 MCG PO ×2 (12:22→22:04)
[2023-10-14] MEDS: TIKOSYN 125 MCG PO ×2 (12:22→22:04)
--- NOTE | 2023-10-14 13:03 | W.PN.CARDCBS ---
Addendum entered and electronically signed by Alan Smith MD 10/14/23 13:29:
I saw and examined the patient.
The CABLE TENDER or PA's note was reviewed and I agree with the note.
Comment: General: Well developed, well nourished in NAD.
Neck: Supple, no JVD, HJR, carotids +2 B/L, no bruits bilaterally.
Heart: Non displaced PMI, RRR, no murmurs, No S3, S4, no rubs.
Lungs: Clear to auscultation bilaterally, no wheeze, rhonchi, rubs bilaterally,
normal expiratory phase.
Extremities: No clubbing, cyanosis or edema bilaterally.
Neuro: Grossly nonfocal, awake, alert and oriented x3.
QT has improved and renal function has improved. Will increase Tikosyn back to 375 mcg p.o. twice daily. Discussed with patient in detail. Total visit time 55 minutes.
Original Note:
Today's Communication / Plan
-
Restart Tikosyn, explained all to patient
Impression / Plan
-
PCP: Ekaterina Spring
Radiological Technician: Dr. García Adam
Impression:
AE COPD
Chronic HFrEF
SERAFIN
Paroxysmal Afib
Chronic dofetilide therapy
Chronic Xarelto OAC
Amiodarone intolerance
Improved cardiomyopathy, EF 15% by RENETTA pre-PVI 02/03/15, then improved to 50-55% by Echo 2017, then reduced again to 35-40% by echo 05/17/20
Zenker diverticulum
CAD s/p MT and POBA of RPDA 06/2014
LBBB
Chronic asthma with a history of inhaler noncompliance
HEMANTH on CPAP
Obese, BMI 44
Hypertension
Hyperlipidemia
GERD
DM 2
Renal cell carcinoma s/p R nephrectomy 11/2020
Echo 08/16/14: EF 40-45%
RENETTA 02/03/15: EF 15% with severe global hypokinesis, mild to moderate MR, dilated left atrial appendage without thrombus
Echo 05/04/15: EF 60%, moderate concentric LVH, no significant valvular disease
Echo 12/30/19: EF 30-35%, global hypokinesis, moderate concentric LVH, mild MR, technically difficult study and recommend to repeat with Definity
Echo 05/17/20: EF 35-40%, global hypokinesis, mild concentric LVH, trace MR, aortic sclerosis without stenosis
Echo 02/14/22: EF 35-40%, global hypokinesis, mild MR, enlarged RV size with normal Rv systolic function
Recommendations:
-CrCl 64 using actual body weight. QTc has improved to 507 ms by ECG reviewed by me 10/14/23. Will resume Tikosyn 375 mcg q 12 hours now and then check ECG in 2 hours. Next dose of Tikosyn will be 10/14/23 at 2200 and then resume usual 0800 and 2000
dosing on 10/15/23.
-Repeat ECG in AM as well
-Cont usual dose of Xarelto 20 mg daily
-Remains on nebulizers and Decadron for AE COPD
-Otherwise from a CV perspective, patient with chronically reduced EF. Outpatient dose of Lasix 40 mg PO daily has been continued.
-GDMT includes Coreg 6.25 mg BID and dose has been continued. Outpatient dose of lisinopril 5 mg daily is on hold due to SERAFIN in admission.
HPI: Patient is a pleasant 83-year-old male with a past medical history significant for paroxysmal atrial fibrillation status post PVI 2014, CAD status post PCI 2013, heart failure with reduced ejection fraction, COPD, hypertension, diabetes
mellitus type 2, renal cell carcinoma status post nephrectomy who presented due to sore throat and persistent cough who is undergone treatment for upper respiratory infection/acute bronchitis.� Cardiology consulted for further discussion regarding
dofetilide dosing.� In discussion with patient, since admission, he reports improvement in his sore throat and cough.� He denies any chest pain, shortness of breath, palpitations, lightheadedness, dizziness, near-syncope, syncope, PND, orthopnea, or
weakness.� He notes persistent production with cough and notes a very thick multicolored mucus.� Denies fevers or chills at this time.� Patient is non-smoker, no alcohol, no illicits.� Patient follows closely with Dr. Adam for cardiovascular
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
Progress Note - Radiological Technician
Subjective
Date of Service: October 14, 2023
He feels well and is excited to restart Tikosyn
Objective
Labs:
10/13/23 06:40
10/14/23 06:32
Labs
Hgb 12.3 g/dL (13.0-18.0) L 10/13/23 06:40
Hct 36.0 % (39.0-52.0) L 10/13/23 06:40
Plt Count 186 10^3/uL (130-400) 10/13/23 06:40
Sodium 136 mmol/L (135-145) 10/14/23 06:32
Potassium 4.3 mmol/L (3.5-5.1) 10/14/23 06:32
BUN 55 mg/dl (9-20) H 10/14/23 06:32
Creatinine 1.4 mg/dL (0.7-1.3) H 10/14/23 06:32
Glucose 231 mg/dl (70-99) H 10/14/23 06:32
Vital Signs and I&O:
Vital Signs
Temp Pulse Resp BP Pulse Ox
98 F 59 18 131/69 97
10/14/23 11:00 10/14/23 11:00 10/14/23 11:00 10/14/23 11:00 10/14/23 11:00
Vital Signs
Temp Pulse Resp BP Pulse Ox
98 F 59 18 131/69 97
10/14/23 11:00 10/14/23 11:00 10/14/23 11:00 10/14/23 11:00 10/14/23 11:00
Intake & Output
10/12/23 10/13/23 10/14/23 10/15/23
06:59 06:59 06:59 06:59
Intake Total 900 / 900 1500 / 1500 1800 / 1800
Balance 900 / 900 1500 / 1500 1800 / 1800
Physical Exam
Physical Exam
GEN: AAO x 3
HEENT:�MMM
LUNGS: No expiratory wheeze
CV: Reg
ABD: +BS
EXT: +1 LE edema
NEURO: No focal neurologic deficits
[2023-10-14 15:00] VITALS: BP 129/58
--- NOTE | 2023-10-14 15:27 | W.PN.HOSP.TC ---
Today's Communication/Plan
-
DC planning
Assessment / Plan
Assessment / Plan
Acute sore throat with cough , shortness of breath and wheezing -suspect respiratory illness/acute bronchitis precipitating a COPD flare.� COVID-19/flu negative.� continued improvement .Remains Off of O2 .cw on steroids-cw taper and nebulizers.�
Continue with doxycycline which was initiated by PCP 10/07.� Follow culture data.� Chest x-ray without evidence of pneumonia.
cw mucinex.
Chronic CHF with reduced EF -last echocardiogram and January 2022 shows EF of 35 to 40%.� Clinically euvolemic.Wt stable ,in fact on lower side. Continue with his home dose of Lasix.Follow Wt daily.
Atrial fibrillation -unknown type -clinical seems to be in sinus rhythm.� EKG in SR with chronic LBBB.� Follow on telemetry.� Continue with anticoagulation and digoxin. On Tikosyn - QTc >500 on this admission ; telemetry without any ventricular
events. appt cardiology input. Tikosyn kept on hold yesterday and resumed today . Plan is repeat QTc check while back on Tikosyn.
CAD -status post prior [place].� No coronary stenting or CABG.� Asymptomatic without chest pain.� Continue with his beta-israel, statins .� On anticoagulation with Xarelto for A-fib.
Hypertension-continue with his home medication ;under goal, hold ACEI for now and follow
Diabetes mellitus type 2-continue with his oral hypoglycemic agents and SSI
CKD 3 Cr
Cr 1.4 at his baseline
Resume ACEI starting tomorrow
Status post prior right nephrectomy for cancer
Full code
CW PT eval .
DC in am if continued improvement
Anticipated Discharge: Within 24 hours
Subjective/Interval History
-
Date of Service: October 14, 2023
Sore throat essentially gone.
Cough improved but still has dry cough.
Breathing is ok.
No fever or chills.
Objective Data
-
Labs:
Laboratory Results
10/14/23
06:32
Sodium 136
Potassium 4.3
Chloride 101
Carbon Dioxide 26
BUN 55 H
Creatinine 1.4 H
Glucose 231 H
Calcium 8.3 L
Vital Signs:
Vital Signs
Temp Pulse Resp BP Pulse Ox
98 F 57 16 131/69 97
10/14/23 11:00 10/14/23 11:45 10/14/23 11:45 10/14/23 11:00 10/14/23 11:45
I&O
10/13/23 10/14/23 10/15/23
06:59 06:59 06:59
Intake Total 1500 / 1500 1800 / 1800
Balance 1500 / 1500 1800 / 1800
Review of Systems
-
Abdomen/GI: Denies Abdominal Pain or Diarrhea
Genitourinary: Denies Dysuria
Neuro: Denies Dizzy
Physical Exam
-
General: No Apparent Distress
HEENT: Moist Mucous Membranes
Respiratory: Negative Wheezes (today) or Crackles
Cardiac: Regular Rhythm and S1/S2
GI: Soft
Neuro: AO x 3
Psych: Calm; Negative Confused
Data Reviewed
-
Labs: Labs Reviewed by me
--- NOTE | 2023-10-14 17:01 | CM ---
PT OT evals no skilled needs.
Spoke with patient he said he wants home no VN.
IMM reviewed signed on chart.
PLAn Home no needs
[2023-10-14] MEDS: XARELTO 20 MG PO (17:08)
[2023-10-14 17:14] LABS: Glucose - Point of Care 229 mg/dl (70-99)
[2023-10-14 19:39] VITALS: BP 141/68
[2023-10-14] MEDS: NON-FORMULARY ITEM PO (20:59)
[2023-10-14] MEDS: LIPITOR 40 MG PO (21:01)
[2023-10-14 21:33] LABS: Glucose - Point of Care 188 mg/dl (70-99)
[2023-10-14 23:52] VITALS: BP 118/69
[2023-10-15 03:38] VITALS: BP 128/58
[2023-10-15 06:00] VITALS: BMI 40.2
[2023-10-15 07:33] LABS: Glucose - Point of Care 192 mg/dl (70-99)
[2023-10-15 07:45] VITALS: BP 127/67
[2023-10-15] MEDS: DUONEB 3 ML INH ×2 (08:01→11:35)
[2023-10-15] MEDS: SYMBICORT 160/4.5 MCG INHALER 2 PUFF INH (08:01)
[2023-10-15] MEDS: TIKOSYN 250 MCG PO (08:47)
[2023-10-15] MEDS: KCL 10 MEQ PO (08:47)
[2023-10-15] MEDS: JANUVIA 100 MG PO (08:47)
[2023-10-15] MEDS: MUCINEX 600 MG PO (08:47)
[2023-10-15] MEDS: GLUCOTROL 5 MG PO (08:47)
[2023-10-15] MEDS: NORVASC 5 MG PO (08:47)
[2023-10-15] MEDS: TIKOSYN 125 MCG PO (08:47)
[2023-10-15] MEDS: DELTASONE 30 MG PO (08:49)
[2023-10-15] MEDS: COREG 6.25 MG PO (08:49)
[2023-10-15] MEDS: LASIX 40 MG PO (08:49)
[2023-10-15] MEDS: PROTONIX 40 MG PO (08:50)
[2023-10-15] MEDS: VIBRAMYCIN 100 MG PO (08:50)
[2023-10-15] MEDS: NON-FORMULARY ITEM 0.375 GRAMS PO (09:05)
[2023-10-15 11:00] VITALS: BP 113/65
--- NOTE | 2023-10-15 11:29 | W.PN.HOSP.TC ---
Today's Communication/Plan
-
dc
Assessment / Plan
Assessment / Plan
Acute sore throat with cough , shortness of breath and wheezing -suspect respiratory illness/acute bronchitis precipitating a COPD flare.� COVID-19/flu negative.� continued improvement .Remains Off of O2 .on steroids-cw taper -switched to oral
pred to be tapered at home.� Continue with doxycycline which was initiated by PCP 10/07-finished 7 day of abx -dc further.� Chest x-ray without evidence of pneumonia.
cw mucinex.
Chronic CHF with reduced EF -last echocardiogram and January 2022 shows EF of 35 to 40%.� Clinically euvolemic.Wt stable ,in fact on lower side. Continue with his home dose of Lasix.Follow Wt daily.Improved EF 50% now
Atrial fibrillation -unknown type -clinical seems to be in sinus rhythm.� EKG in SR with chronic LBBB.� Follow on telemetry.� Continue with anticoagulation and digoxin. On Tikosyn - QTc >500 on this admission but has LBBB ; telemetry without any
ventricular events.
DW Cards Dr Villegas this am - cw Tikosyn at current dose and follow as OP
CAD -status post prior [place].� No coronary stenting or CABG.� Asymptomatic without chest pain.� Continue with his beta-israel, statins .� On anticoagulation with Xarelto for A-fib.
Hypertension-continue with his home medication ;under goal, hold ACEI for now on as BP under goal without it, EF recovered, has CKD
Diabetes mellitus type 2-continue with his oral hypoglycemic agents and SSI
CKD 3 Cr
Cr 1.4 at his baseline
Status post prior right nephrectomy for cancer
Full code
CW PT eval .
Medically stable for discharge today.
More than 30 minutes spent in discharge including
Final examination of the patient
Summarizing hospital stay
Instructions for continuing care to all relevant caregivers
Preparation of discharge records, prescriptions, and referral forms
Total time spent (in minutes): 32
Anticipated Discharge: Today
Subjective/Interval History
-
Date of Service: October 15, 2023
Feels improved. Sore throat is gone. Improved breathing. No wheezing.
Objective Data
-
Labs:
Laboratory Results
10/15/23
11:10
Sodium Pending
Potassium Pending
Chloride Pending
Carbon Dioxide Pending
BUN Pending
Creatinine Pending
Glucose Pending
Calcium Pending
Vital Signs:
Vital Signs
Temp Pulse Resp BP Pulse Ox
97.5 F 60 16 113/65 96
10/15/23 11:00 10/15/23 11:00 10/15/23 11:00 10/15/23 11:00 10/15/23 11:00
I&O
10/14/23 10/15/23 10/16/23
06:59 06:59 06:59
Intake Total 1800 / 1800 1200 / 1200
Balance 1800 / 1800 1200 / 1200
Review of Systems
-
Respiratory: Denies Cough
Abdomen/GI: Denies Nausea or Vomiting
Neuro: Denies Dizzy
Physical Exam
-
General: No Apparent Distress
HEENT: Moist Mucous Membranes
Respiratory: Clear to Auscultation; Negative Wheezes
Cardiac: Regular Rhythm and S1/S2
GI: Soft
Neuro: AO x 3
Data Reviewed
-
Labs: Labs Reviewed by me (Cr pending)
--- NOTE | 2023-10-15 11:39 | W.PN.CARDCBS ---
Addendum entered and electronically signed by Jacky Villegas MD 10/15/23 17:21:
I saw and examined the patient.
The Lift Manager's note was reviewed and I agree with the note.
Comment:
GEN: No distress, awake, Ox3
HEENT: supple, anicteric, mmm
LUNGS: CTA, no wheezes/rales
CV: Reg, S1/S2, 1/6 syst LSB, no gallop
ABD: soft, BS+, NT/ND
EXT: No edema
NEURO: Gross non-focal
SKIN: No rash
Plan:
QTc is stable at approximately 510msec with left bundle branch block. Okay to discharge on Tikosyn 370 mcg twice a day.
Original Note:
Today's Communication / Plan
-
D/C to home on Tikosyn 375 mcg q 12 hours
If lisinopril not restarted prior to d/c due to pending labs then will work on restarting at upcoming office visit
Impression / Plan
-
PCP: Ekaterina Spring
Sales Account Director: Dr. García Adam
Impression:
AE COPD
Chronic HFrEF
SERAFIN
Paroxysmal Afib
Chronic dofetilide therapy
Chronic Xarelto OAC
Amiodarone intolerance
Improved cardiomyopathy, EF 15% by RENETTA pre-PVI 02/03/15, then improved to 50-55% by Echo 2017, then reduced again to 35-40% by echo 05/17/20
Zenker diverticulum
CAD s/p MT and POBA of RPDA 06/2014
LBBB
Chronic asthma with a history of inhaler noncompliance
HEMANTH on CPAP
Obese, BMI 44
Hypertension
Hyperlipidemia
GERD
DM 2
Renal cell carcinoma s/p R nephrectomy 11/2020
Echo 08/16/14: EF 40-45%
RENETTA 02/03/15: EF 15% with severe global hypokinesis, mild to moderate MR, dilated left atrial appendage without thrombus
Echo 05/04/15: EF 60%, moderate concentric LVH, no significant valvular disease
Echo 12/30/19: EF 30-35%, global hypokinesis, moderate concentric LVH, mild MR, technically difficult study and recommend to repeat with Definity
Echo 05/17/20: EF 35-40%, global hypokinesis, mild concentric LVH, trace MR, aortic sclerosis without stenosis
Echo 02/14/22: EF 35-40%, global hypokinesis, mild MR, enlarged RV size with normal Rv systolic function
Plan:
-QTc stable at 514 ms after two doses of Tikosyn 375 mcg q 12 hours which was restarted 10/14/23.
-Repeat labs pending for 10/15/23
-Cont usual dose of Xarelto 20 mg daily
-Decadron has transitioned to prednisone and he is preparing for d/c 10/15/23
-Patient with chronically reduced EF. Outpatient dose of Lasix 40 mg PO daily has been continued.
-GDMT includes Coreg 6.25 mg BID and dose has been continued.
-Outpatient dose of lisinopril 5 mg daily is on hold due to SERAFIN in admission. Again, labs pending 10/15/23. If lisinopril is not resumed on d/c meds then will follow up on this as an outpatient.
-Cardiology f/u scheduled and listed on d/c instructions
HPI: Patient is a pleasant 83-year-old male with a past medical history significant for paroxysmal atrial fibrillation status post PVI 2014, CAD status post PCI 2013, heart failure with reduced ejection fraction, COPD, hypertension, diabetes
mellitus type 2, renal cell carcinoma status post nephrectomy who presented due to sore throat and persistent cough who is undergone treatment for upper respiratory infection/acute bronchitis.� Cardiology consulted for further discussion regarding
dofetilide dosing.� In discussion with patient, since admission, he reports improvement in his sore throat and cough.� He denies any chest pain, shortness of breath, palpitations, lightheadedness, dizziness, near-syncope, syncope, PND, orthopnea, or
weakness.� He notes persistent production with cough and notes a very thick multicolored mucus.� Denies fevers or chills at this time.� Patient is non-smoker, no alcohol, no illicits.� Patient follows closely with Dr. Adam for cardiovascular
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
Progress Note - Sales Account Director
Subjective
Date of Service: October 15, 2023
He feels well, overall improved and happy to be back on Tikosyn
Objective
Labs:
10/13/23 06:40
Labs
Hgb 12.3 g/dL (13.0-18.0) L 10/13/23 06:40
Hct 36.0 % (39.0-52.0) L 10/13/23 06:40
Plt Count 186 10^3/uL (130-400) 10/13/23 06:40
Sodium 136 mmol/L (135-145) 10/14/23 06:32
Potassium 4.3 mmol/L (3.5-5.1) 10/14/23 06:32
BUN 55 mg/dl (9-20) H 10/14/23 06:32
Creatinine 1.4 mg/dL (0.7-1.3) H 10/14/23 06:32
Glucose 231 mg/dl (70-99) H 10/14/23 06:32
Vital Signs and I&O:
Vital Signs
Temp Pulse Resp BP Pulse Ox
97.5 F 60 16 113/65 96
10/15/23 11:00 10/15/23 11:00 10/15/23 11:00 10/15/23 11:00 10/15/23 11:00
Vital Signs
Temp Pulse Resp BP Pulse Ox
97.5 F 60 16 113/65 96
10/15/23 11:00 10/15/23 11:00 10/15/23 11:00 10/15/23 11:00 10/15/23 11:00
Intake & Output
10/13/23 10/14/23 10/15/23 10/16/23
06:59 06:59 06:59 06:59
Intake Total 1500 / 1500 1800 / 1800 1200 / 1200
Balance 1500 / 1500 1800 / 1800 1200 / 1200
Physical Exam
Physical Exam
GEN: AAO x 3
HEENT:�MMM
LUNGS: No expiratory wheeze
CV: Reg
ABD: +BS
EXT: +1 LE edema
NEURO: No focal neurologic deficits
[2023-10-15 13:39] LABS: Blood Urea Nitrogen 48 mg/dl (9-20); Calcium 8.2 mg/dl (8.4-10.2); Carbon Dioxide 26 mmol/L (22-30); Chloride 100 mmol/L (98-107); Estimated Creatinine Clearance 51 ml/min; Glucose 217 mg/dl (70-99); Potassium 4.5 mmol/L (3.5-5.1); Sodium 133 mmol/L (135-145); eGFR 54.51
--- NOTE | 2023-10-15 14:07 | W.DS.TRANS ---
DC Summary - Social Media Coordinator
-
Discharge Instructions:
Discharge Diagnosis/Procedures Acute bronchitis with COPD flare
Acute kidney injury chronic renal disease 3
Chronic CHF with recovered EF to 50% on this
admission
Paroxysmal atrial fibrillation Nexis coronary
disease
Diet Low Cholesterol
Activity As tolerated
Driving Restrictions As prior to admission
Bathing Restrictions None
Specialty Instructions Weigh Daily
Instructions:
Stand-Alone Forms:
Changes to Home Medications: Yes
Discharge Medications:
DC Medications w/original date entered in [facility]
atorvastatin 40 mg tablet 40 mg PO QPM High cholesterol 08/16/14
rivaroxaban 20 mg tablet (Xarelto) 20 mg PO QPM Blood clot prevention/tx 04/16/18
mesalamine 0.375 gram capsule,extended release 24 hr (Apriso) 0.375 g PO DAILY Gastrointestinal issue 08/21/19
pantoprazole 40 mg tablet,delayed release 40 mg PO DAILY Gastrointestinal issue 12/10/19
potassium chloride 10 mEq tablet,extended release(part/cryst) 10 meq PO DAILY ELECTROLYTE REPLETION 01/06/20
dofetilide 250 mcg capsule 250 mcg PO BID Arrhythmia 09/29/21
fluticasone furoate 100 mcg-vilanterol 25 mcg/dose inhalation powder (Breo Ellipta) 1 puff inhalation R DAILY Lung/breathing issues 09/29/21
dofetilide 125 mcg capsule 125 mcg PO BID Arrhythmia 11/27/21
carvedilol 6.25 mg tablet 6.25 mg PO BID Heart Failure 02/13/22
furosemide 40 mg tablet 40 mg PO DAILY Fluid retention/Swelling 02/13/22
amlodipine 5 mg tablet 5 mg PO DAILY Blood Pressure 10/09/23
benzonatate 200 mg capsule 200 mg PO BIDPRN PRN cough 10/09/23
coQ10 (ubiquinol) 100 mg capsule 100 mg PO DAILY 10/09/23
cyanocobalamin (vitamin B-12) 1,000 mcg tablet 1,000 mcg PO DAILY 10/09/23
glipizide 5 mg tablet 5 mg PO DAILY diabetes 10/09/23
linagliptin 5 mg tablet (Tradjenta) 5 mg PO DAILY diabetes 10/09/23
albuterol sulfate 90 mcg/actuation aerosol inhaler 2 puff inhalation Q6H PRN shortness of breath or wheezing #6.7 grams 10/15/23
dextromethorphan-guaifenesin 10 mg-100 mg/5 mL oral syrup 5 ml PO Q4HPRN PRN cough #237 mL 10/15/23
guaifenesin 600 mg tablet, extended release 12 hr 600 mg PO Q12 #14 tabs 10/15/23
prednisone 10 mg tablet 10 mg PO DIRECTED #18 tabs 10/15/23
Home Medication Changes
New medication-prednisone taper, Mucinex, albuterol inhaler
Discontinue medication-lisinopril
Pending Results: No
--- NOTE | 2023-10-15 15:10 | CM ---
MD entered order for dc.
Spoke with patient he said he wants home no VN.
He said his will drive him home.
PLAN Home no needs
== END 2023-10-15 15:14 | disposition home or self-care (01) | DRG 191 ==
LOC: 4 EAST ACU 15:45
PROVIDERS: ADMITTING PHYSICIAN Internal Medicine; CONSULT PHYSICIAN Internal Medicine Cardiovascular Disease; EMERGENCY PHYSICIAN Emergency Medicine; FAMILY PHYSICIAN Internal Medicine
DX: J44.1 Chronic obstructive pulmonary disease with (acute) exacerbation (principal); I13.0 Hypertensive heart and chronic kidney disease with heart failure and stage 1 through stage 4 chronic kidney disease, or unspecified chronic kidney disease; Z68.41 Body mass index [BMI] 40.0-44.9, adult; N17.9 Acute kidney failure, unspecified; I50.32 Chronic diastolic (congestive) heart failure; J20.9 Acute bronchitis, unspecified; J44.0 Chronic obstructive pulmonary disease with (acute) lower respiratory infection; E78.00 Pure hypercholesterolemia, unspecified; G47.33 Obstructive sleep apnea (adult) (pediatric); I25.10 Atherosclerotic heart disease of native coronary artery without angina pectoris; I48.0 Paroxysmal atrial fibrillation; N18.32 Chronic kidney disease, stage 3b; E11.22 Type 2 diabetes mellitus with diabetic chronic kidney disease; I44.7 Left bundle-branch block, unspecified; K21.9 Gastro-esophageal reflux disease without esophagitis; I25.5 Ischemic cardiomyopathy; E66.09 Other obesity due to excess calories; J30.1 Allergic rhinitis due to pollen; I25.2 Old myocardial infarction; Z87.01 Personal history of pneumonia (recurrent); Z87.11 Personal history of peptic ulcer disease; Z87.19 Personal history of other diseases of the digestive system; Z85.528 Personal history of other malignant neoplasm of kidney; Z11.52 Encounter for screening for COVID-19; Z79.01 Long term (current) use of anticoagulants; Z79.51 Long term (current) use of inhaled steroids; Z90.5 Acquired absence of kidney; Z88.0 Allergy status to penicillin; Z91.041 Radiographic dye allergy status; Z91.148 Patient's other noncompliance with medication regimen for other reason; Z98.61 Coronary angioplasty status
CPT/HCPCS: 71046; 80048; 80053; 82962; 83605; 83735; 83880; 85025; 85027; 87040; 87070; 87502; 87811; 87880; 93005; 93306; 94640; 94644; 96361; 96374; 97116; 97162; 99284; Q9957

== ENCOUNTER → 2023-10-23 06:23 | Outpatient (REF) | payer MEDICARE, OTHER, SELFPAY ==
[2023-10-23 07:41] LABS: Albumin 2.9 g/dl (3.5-5.0); Blood Urea Nitrogen 47 mg/dl (9-20); Calcium 8.1 mg/dl (8.4-10.2); Carbon Dioxide 26 mmol/L (22-30); Chloride 107 mmol/L (98-107); Glucose 136 mg/dl (70-99); Phosphorus 3.3 mg/dl (2.5-4.5); Potassium 4.2 mmol/L (3.5-5.1); Sodium 137 mmol/L (135-145); eGFR 45.91
[2023-10-23 11:05] LABS: Intact PTH 250.9 pg/ml (13.6-85.8)
== END ==
LOC: REG 06:23
PROVIDERS: ATTENDING PHYSICIAN Specialist; FAMILY PHYSICIAN Internal Medicine
DX: I10 Essential (primary) hypertension (principal); N18.31 Chronic kidney disease, stage 3a
CPT/HCPCS: 36415; 80069; 83970

== ENCOUNTER → 2023-11-14 14:53 | Outpatient (REF) | payer MEDICARE, OTHER, SELFPAY | LOC: REG 14:53 | PROVIDERS: ATTENDING PHYSICIAN Nurse Practitioner Adult Health; FAMILY PHYSICIAN Internal Medicine | DX: R04.2 Hemoptysis (principal) | CPT/HCPCS: 87205 ==

== ENCOUNTER → 2023-12-12 07:22 | Outpatient (REF) | payer MEDICARE, OTHER, SELFPAY ==
[2023-12-12 08:16] LABS: % Basophils 0.7 % (0-2); % Eosinophils 7.4 % (0-6); % Immature Granulocytes 0.7 % (0-0.5); % Lymphocytes 16.8 % (20.5-51.1); % Monocytes 8.5 % (1.7-9.3); % Neutrophils 65.9 % (42.2-75.2); Absolute Eosinophils 0.4 10^3/uL (0-0.7); Absolute Lymphocytes 0.9 10^3/uL (1.2-3.4); Absolute Monocytes 0.5 10^3/uL (0.1-0.6); Absolute Neutrophils 3.6 10^3/uL (1.4-6.5); Hematocrit 37.3 % (39.0-52.0); Hemoglobin 12.3 g/dL (13.0-18.0); Mean Corpuscular Hgb 30.5 pg (27.0-31.0); Mean Corpuscular Volume 92.6 fL (80.0-94.0); Mean Platelet Volume 8.7 fL (7.4-10.4); Nucleated Red Blood Cells % 0 % (-); Platelet Count 187 10^3/uL (130-400); Red Blood Cell Count 4.03 10^6/uL (4.70-6.10); Red Cell Dist. Width 14.2 % (11.5-14.5); White Blood Cell Count 5.5 10^3/uL (4.8-10.8)
[2023-12-12 08:49] LABS: ALT (SGPT) 15 U/L (0-50); AST (SGOT) 22 U/L (17-59); Albumin 3.5 g/dl (3.5-5.0); Alkaline Phosphatase 121 U/L (38-126); Blood Urea Nitrogen 29 mg/dl (9-20); Carbon Dioxide 25 mmol/L (22-30); Chloride 107 mmol/L (98-107); Glucose 135 mg/dl (70-99); Potassium 4.2 mmol/L (3.5-5.1); Sodium 141 mmol/L (135-145); Total Bilirubin 0.6 mg/dl (0.2-1.3); Total Protein 6.6 g/dl (6.3-8.2); eGFR 54.51
[2023-12-12 09:34] LABS: Glycohemoglobin (HgbA1c) 6.7 % (4.0-5.6)
== END ==
LOC: REG 07:22
PROVIDERS: ATTENDING PHYSICIAN Internal Medicine
DX: J44.1 Chronic obstructive pulmonary disease with (acute) exacerbation (principal); Z79.899 Other long term (current) drug therapy; E11.21 Type 2 diabetes mellitus with diabetic nephropathy; N18.31 Chronic kidney disease, stage 3a
CPT/HCPCS: 36415; 80053; 83036; 85025

== ENCOUNTER → 2024-02-03 15:59 | Outpatient (REF) | payer MEDICARE, OTHER, SELFPAY ==
[2024-02-03 16:47] LABS: Blood Urea Nitrogen 40 mg/dl (9-20); Calcium 8.8 mg/dl (8.4-10.2); Carbon Dioxide 24 mmol/L (22-30); Chloride 107 mmol/L (98-107); Glucose 97 mg/dl (70-99); Potassium 4.1 mmol/L (3.5-5.1); Sodium 142 mmol/L (135-145); eGFR 36.89
== END ==
LOC: REG 15:59
PROVIDERS: ATTENDING PHYSICIAN Specialist; FAMILY PHYSICIAN Internal Medicine
DX: N18.31 Chronic kidney disease, stage 3a (principal)
CPT/HCPCS: 36415; 80048

== ENCOUNTER → 2024-04-28 08:47 | Outpatient (REF) | payer MEDICARE, OTHER, SELFPAY ==
[2024-04-28 11:26] LABS: % Basophils 0.8 % (0-2); % Eosinophils 2.9 % (0-6); % Immature Granulocytes 1.1 % (0-0.5); % Lymphocytes 14.7 % (20.5-51.1); % Monocytes 7.4 % (1.7-9.3); % Neutrophils 73.1 % (42.2-75.2); Absolute Basophils 0.1 10^3/uL (0-0.2); Absolute Eosinophils 0.2 10^3/uL (0-0.7); Absolute Immature Granulocytes 0.1 10^3/uL (0-0.05); Absolute Monocytes 0.5 10^3/uL (0.1-0.6); Absolute Neutrophils 4.8 10^3/uL (1.4-6.5); Hematocrit 36.3 % (39.0-52.0); Hemoglobin 12.5 g/dL (13.0-18.0); Mean Corp Hgb Conc. 34.4 g/dL (33.0-37.0); Mean Corpuscular Hgb 30.4 pg (27.0-31.0); Mean Corpuscular Volume 88.3 fL (80.0-94.0); Mean Platelet Volume 9.4 fL (7.4-10.4); Nucleated Red Blood Cells % 0 % (-); Platelet Count 192 10^3/uL (130-400); Red Blood Cell Count 4.11 10^6/uL (4.70-6.10); Red Cell Dist. Width 13.9 % (11.5-14.5); White Blood Cell Count 6.5 10^3/uL (4.8-10.8)
[2024-04-28 11:58] LABS: Glycohemoglobin (HgbA1c) 6.8 % (4.0-5.6)
[2024-04-28 12:19] LABS: ALT (SGPT) 23 U/L (0-50); AST (SGOT) 25 U/L (17-59); Albumin 4.2 g/dl (3.5-5.0); Alkaline Phosphatase 132 U/L (38-126); Blood Urea Nitrogen 50 mg/dl (9-20); Calcium 9.3 mg/dl (8.4-10.2); Carbon Dioxide 23 mmol/L (22-30); Chloride 107 mmol/L (98-107); Glucose 114 mg/dl (70-99); HDL Cholesterol 46 mg/dl; LDL Cholesterol, Calculated 55 mg/dl; Potassium 4.6 mmol/L (3.5-5.1); Sodium 143 mmol/L (135-145); Total Bilirubin 0.5 mg/dl (0.2-1.3); Total Cholesterol 113 mg/dl (50-199); Total Protein 7.1 g/dl (6.3-8.2); Triglyceride 64 mg/dl (10-149); Very Low Density Lipoprotein 12 mg/dl (0-30); eGFR 32.51
[2024-04-28 13:20] LABS: Vitamin B12 924 pg/ml (239-931)
== END ==
LOC: RAD 08:47
PROVIDERS: ATTENDING PHYSICIAN Physician Assistant; FAMILY PHYSICIAN Internal Medicine
DX: N28.89 Other specified disorders of kidney and ureter (principal); R53.83 Other fatigue; E53.8 Deficiency of other specified B group vitamins; E11.21 Type 2 diabetes mellitus with diabetic nephropathy; E78.5 Hyperlipidemia, unspecified
CPT/HCPCS: 36415; 71046; 76775; 80053; 80061; 82607; 83036; 85025

== ENCOUNTER 2024-04-28 17:04 | Observation (INO) | payer MEDICARE, OTHER, SELFPAY ==
[2024-04-28] VITALS (14 sets, daily range): BP systolic 118–180; BP diastolic 46–85; PULSE 59; O2SAT 95; BMI 44.4; BMI 43.2
--- NOTE | 2024-04-28 11:01 | ED.GENMED ---
ED Provider Triage
<Laurent Chau PA-C - Last Filed: 04/28/24 11:02>
-
Patient seen by provider in Triage?: Seen in Triage
Attestation: A medical screening examination has been initiated by a qualified medical provider. Based on the assessment performed at this time, it has been determined that an emergent medical condition may exist and the patient has been informed
that further medical evaluation and possible additional diagnostic testing may be needed.
HPI: 83-year-old male presents for complaints of widespread pain. He states the majority the pain is in his low back and his legs feel weak. Denies any recent falls or traumatic injuries. Has not taken any medication for pain. States he is
unable to walk secondary to pain. No loss of bladder or bowel function
GENERAL: Alert , in no apparent distress
EYE: No visual abnormalities.
NECK: Trachea midline
ENT: No visible abnormalities.
LUNGS: No acute respiratory distress
NEUROLOGICAL: Alert and oriented
SKIN: Skin intact. No visible changes.
MUSCULOSKELETAL: Moving extremities normally. Marked pain response to palpation of the low back
PSYCH: Normal and appropriate interaction.
A/P: No trauma, likely mechanical low back pain, will check basic labs, do not see indication for lumbar spine imaging at this time, will give oxycodone as he is chronically anticoagulated
This is a medical evaluation conducted in person to initiate diagnostic evaluation and provide initial therapeutics. Please see further documentation by the treating clinician.
History of Present Illness
<Laurent Chau PA-C - Last Filed: 04/28/24 11:02>
General
Chief Complaint: Musculo-Skeletal Complaint
Time Seen by Provider: 04/28/24 12:22
<Emerita Farfan PA-C - Last Filed: 04/28/24 17:24>
General
Source: patient
History of Present Illness
History of Present Illness:
83yoM with a history of coronary artery disease, CHF, atrial fibrillation, type 2 diabetes, hypertension, hyperlipidemia, COPD, prior renal cell carcinoma s/p R nephrectomy, sleep apnea, and obesity presenting with his for evaluation of back
pain. Patient was doing some chores 5 days ago including cleaning out dog candles. The next day he woke up with pain in his left lower back. The pain is severe and he is unable to walk due to the severity of his pain. He has not been taking
anything [id number] because he is not sure what is safe to take. He reports weakness in his bilateral lower extremities and he feels shaky. He denies any abdominal pain, vomiting, fevers, incontinence, saddle anesthesia.
Past History
<Laurent Chau PA-C - Last Filed: 04/28/24 11:02>
Past History
ED Past Medical History: Arrthythmia (Atrial fib), Asthma, CAD, Cancer (renal cell carcinoma on the right), CHF, COPD, HTN, Hypercholesterolemia, NIDDM, DE, Other (Patton's esophagitis, rectal bleeding) and Other (obstructive Sleep apnea,
pneumonia, edema, diverticulitis, stomach ulcers, arthritis, PNA); Negative Renal failure (stage III a)
ED Past Surgical History: Cardiac (PTCA, cardioversion 2020), Tonsilectomy, Urological (right nephrectomy secondary to renal cell carcinoma) and Other (rectal Fistula surgery)
Social History
Tobacco: Non-smoker
Alcohol: None
Drug: None
Personal:
Living: with family
Employment: Retired
Family History
Family History: Other
Phy Exam
<Emerita Farfan PA-C - Last Filed: 04/28/24 17:24>
General Physical Exam
General Presentation: well appearing and no apparent distress
General age: appears stated age
General Skin: warm and dry
General Habitus: elderly
ENT Exam
ENT Exam: normocephalic
Cardiovascular Exam
Cardiovascular Exam: normal peripheral pulses (2+ DP pulses bilaterally )
Pulmonary Exam
Pulmonary Exam: no respiratory distress
Gastrointestinal Exam
Gastrointestinal Exam: soft, non distended and other (Abdomen obese. Ventral hernia vs. diastasis recti noted. Patient reports back pain upon palpation of the abdomen.)
Neurological Exam
Neurological Exam: alert
Musculoskeletal Exam
Musculoskeletal Exam: other (+Tenderness in the left paraspinal musculature in lumbar region. No skin changes. There is significant pain with any trunk movement. )
Skin Exam
Skin Exam: normal color and warm/dry
Psychiatric Exam
Psychiatric Exam: normal mood/affect
Course
<Laurent Chau PA-C - Last Filed: 04/28/24 11:02>
Orders/Labs/Results
Orders:
Orders
04/28/24 10:57
Oxycodone/Acetaminophen [Percocet 5/325] 1 tablet PO NOW STA
04/28/24 12:47
CT Abd/pel Without Iv Or Oral Urgent
Comment:
Reason For Exam: L back/flank pain
Oxycodone/Acetaminophen [Percocet 5/325] 1 tablet PO NOW STA
04/28/24 13:00
Lidocaine [Lidocaine 4% Patch] 1 patch TOPICAL DAILY
Apply Lidocaine patch(s) to:: L lower back
04/28/24 15:12
Pt Eval And Treat Urgent
Activity Level: Out of Bed- Ad Lety
04/28/24 15:58
HYDROmorphone [Dilaudid] 0.25 mg IV NOW STA
04/28/24 16:29
EKG [Electrocardiogram (*1)] Stat
Reason for Study: Atrial Fibrillation
04/28/24 16:35
Admit/Transfer Patient As Directed
Co-Sign Provider:
Level of Care: Observation services
Assign to:: Telemetry
Physician / Group: michelle
Diagnosis: back pain
Reason for Telemetry: Arrhythmia
Date to Stop Telemetry: 05/01/24
Time to Stop Telemetry: 11:00
PRN Pain Medication Management As Directed
May give lesser potent ordered pain med per pt: Yes
preference::
Protocol:: Medication orders for pain may be administered in a
manner that supports deferring to patient preference
when the pt is:
- Requesting an ordered lesser potent pain medication.
Least to most potent pain medications are defined
as: acetaminophen < NSAID < tramadol < opioids
(morphine, oxycodone, hydromorphone).
- Requesting a lesser dose of the same medication IF
ORDERED.
- Requesting a less intrusive route of administration
if both routes are prescribed by the provider (PO <
IV).
04/28/24 16:37
Code Status As Directed
Resuscitation Status: Full Code
05/01/24 11:00
DC Protocol for Telemetry ONCE
04/28/24 16:08
04/28/24 16:08
Vital Signs
Initial and Last Documented VS:
Initial Vital Signs
Temp Pulse Resp BP Pulse Ox
98.0 F 59 20 145/79 98
04/28/24 10:56 04/28/24 10:56 04/28/24 10:56 04/28/24 10:56 04/28/24 10:56
Last Documented Vital Signs
Temp Pulse Resp BP Pulse Ox
98.0 F 53 20 158/81 95
04/28/24 10:56 04/28/24 12:00 04/28/24 10:56 04/28/24 13:00 04/28/24 13:30
<Emerita Farfan PA-C - Last Filed: 04/28/24 17:24>
Orders/Labs/Results
Orders:
Orders
04/28/24 10:57
Oxycodone/Acetaminophen [Percocet 5/325] 1 tablet PO NOW STA
04/28/24 12:47
CT Abd/pel Without Iv Or Oral Urgent
Comment:
Reason For Exam: L back/flank pain
Oxycodone/Acetaminophen [Percocet 5/325] 1 tablet PO NOW STA
04/28/24 13:00
Lidocaine [Lidocaine 4% Patch] 1 patch TOPICAL DAILY
Apply Lidocaine patch(s) to:: L lower back
04/28/24 15:12
Pt Eval And Treat Urgent
Activity Level: Out of Bed- Ad Lety
04/28/24 15:58
HYDROmorphone [Dilaudid] 0.25 mg IV NOW STA
04/28/24 16:29
EKG [Electrocardiogram (*1)] Stat
Reason for Study: Atrial Fibrillation
04/28/24 16:35
Admit/Transfer Patient As Directed
Co-Sign Provider:
Level of Care: Observation services
Assign to:: Telemetry
Physician / Group: michelle
Diagnosis: back pain
Reason for Telemetry: Arrhythmia
Date to Stop Telemetry: 05/01/24
Time to Stop Telemetry: 11:00
PRN Pain Medication Management As Directed
May give lesser potent ordered pain med per pt: Yes
preference::
Protocol:: Medication orders for pain may be administered in a
manner that supports deferring to patient preference
when the pt is:
- Requesting an ordered lesser potent pain medication.
Least to most potent pain medications are defined
as: acetaminophen < NSAID < tramadol < opioids
(morphine, oxycodone, hydromorphone).
- Requesting a lesser dose of the same medication IF
ORDERED.
- Requesting a less intrusive route of administration
if both routes are prescribed by the provider (PO <
IV).
04/28/24 16:37
Code Status As Directed
Resuscitation Status: Full Code
05/01/24 11:00
DC Protocol for Telemetry ONCE
04/28/24 16:08
04/28/24 16:08
Vital Signs
Initial and Last Documented VS:
Initial Vital Signs
Temp Pulse Resp BP Pulse Ox
98.0 F 59 20 145/79 98
04/28/24 10:56 04/28/24 10:56 04/28/24 10:56 04/28/24 10:56 04/28/24 10:56
Last Documented Vital Signs
Temp Pulse Resp BP Pulse Ox
98.0 F 53 20 158/81 95
04/28/24 10:56 04/28/24 12:00 04/28/24 10:56 04/28/24 13:00 04/28/24 13:30
<Emerita Farfan PA-C - Last Filed: 04/28/24 17:24>
MDM/Problems Addressed
Differential Diagnosis Includes:
83yoM here with L lower back pain x 4 days. Started after he was cleaning out dog kennels/doing chores for 8 hours. No falls. Unable to ambulate due to his pain. No red flags in history including no fevers or saddle anesthesia but patient does have
a history of malignancy. VSS. There is reproducible tenderness to the L lumbar paraspinal region on exam. Patient requires significant assistance to sit up in bed due to the pain. Differential diagnosis includes but is not limited to: lumbar strain,
lumbar radiculopathy, DDD
Initial ED plan: Patient had outpatient labs earlier today which were reviewed. Will check CT abdomen without contrast. Percocet and lidocaine patch for pain.
<Emerita Farfan PA-C - Last Filed: 04/28/24 17:24>
*Critical Care Note
Total Time (30-74mins, 75-104mins- exclusive of procedures): Not Applicable
<Emerita Farfan PA-C - Last Filed: 04/28/24 17:24>
Update Note
Update Note:
CT is negative for acute findings. Specifically, there is no lumbar fracture. He was evaluated by physical therapy who recommends rehab. Patient continues to be in severe pain despite receiving multiple doses of Percocet. IV Dilaudid ordered and
patient admitted for further management.
ED Attending Note
<Laurent Chau PA-C - Last Filed: 04/28/24 11:02>
-
Portions of this chart may have been created with voice recognition software.� Occasional wrong word or��sound alike� substitutions may have occurred due to the inherent limitations of voice recognition software.
Discharge Plan
Departure
Patient Disposition: Admit
Date of Disposition: 04/28/24
Time of Disposition: 16:00
Presentation/result/management discussed w/ accepting MD/DO: Hospitalist
Discharge Problem:
Intractable low back pain
Interventions
Interventions:
*Risk Screen - Suicide Last Done: 04/28/24 10:56
*General Assessment Last Done: 04/28/24 12:12
*Neglect/Abuse Screening Last Done: 04/28/24 12:12
*ED COVID-19 Vaccine History Last Done: 04/28/24 12:12
ED-Musculoskeletal Assessment Last Done: 04/28/24 13:14
[2024-04-28] MEDS: PERCOCET 5/325 1 TABLET PO ×2 (11:04→12:56)
[2024-04-28] MEDS: LIDOCAINE 4% PATCH 1 PATCH TOPICAL (12:56)
--- NOTE | 2024-04-28 16:04 | HPS.HSE ---
Family Physician
-
Family Physician: Macy Spring
Chief Complaint
-
lower back pain
History of Present Illness
83yoM with a history of coronary artery disease, CHF, atrial fibrillation, type 2 diabetes, hypertension, hyperlipidemia, COPD, prior renal cell carcinoma s/p R nephrectomy, sleep apnea, and obesity presenting with his for evaluation of back
pain. Patient was doing some chores 5 days ago including cleaning out dog candles. towards the end of he started to have back pain. patient stated left lower back pain. it is affecting his activities of daily living. patine can't walk, can't place
any pressure on his left LE. stated chronic incontinence of urine. denied fever, chills, chest pain, sob.denied YODER, dizzy or syncopal episode. denied abdominal pain,n,v,d. denied dysuria or hematuria.he has chronic pain on his right shoulder.
Ct with no acute finding. admitting for further management.
Medical History
Past Medical History
Past Medical History: Reports Other
Additional Past Medical History:
Hyperlipidemia
A-fib
Renal cell carcinoma
Cardiomyopathy
Hypertension
Stage III coronary disease
Congestive heart failure
Coronary artery disease
Past Surgical History: Reports Other
Additional Past Surgical History:
Tonsillectomy
Rectal fistula surgery
Cardioversion
Social History
Tobacco: Non-smoker
Alcohol: None
Drug: None
Personal:
Living: With Family
Family History
Family History: Not pertinent
Allergies / Home Medications
Allergies reflects when Allergies were last updated in [facility].
Home Medications with original date entered in [facility]
Allergy/Medication List:
Allergies
Allergy/AdvReac Type Severity Reaction Status Date / Time
grass pollen Allergy Itching Verified 04/28/24 10:54
Iodinated Contrast Media Allergy 'happened Verified 04/28/24 10:54
[Iodinated Contrast- Oral long ago'
and IV Dye]
Penicillins Allergy 'happened Verified 04/28/24 10:54
at least
50 years
ago'
tree and shrub pollen Allergy Itching Verified 04/28/24 10:54
Home Medications
atorvastatin 40 mg tablet 40 mg PO QPM High cholesterol 08/16/14
rivaroxaban 20 mg tablet (Xarelto) 20 mg PO QPM Blood clot prevention/tx 04/16/18
mesalamine 0.375 gram capsule,extended release 24 hr (Apriso) 0.375 g PO DAILY Gastrointestinal issue 08/21/19
pantoprazole 40 mg tablet,delayed release 40 mg PO DAILY Gastrointestinal issue 12/10/19
potassium chloride 10 mEq tablet,extended release(part/cryst) 10 meq PO DAILY ELECTROLYTE REPLETION 01/06/20
dofetilide 250 mcg capsule 250 mcg PO BID Arrhythmia 09/29/21
dofetilide 125 mcg capsule 125 mcg PO BID Arrhythmia 11/27/21
carvedilol 6.25 mg tablet 6.25 mg PO BID Heart Failure 02/13/22
furosemide 40 mg tablet 40 mg PO DAILY Fluid retention/Swelling 02/13/22
amlodipine 5 mg tablet 5 mg PO DAILY Blood Pressure 10/09/23
coQ10 (ubiquinol) 100 mg capsule 100 mg PO DAILY 10/09/23
cyanocobalamin (vitamin B-12) 1,000 mcg tablet 1,000 mcg PO DAILY 10/09/23
glipizide 5 mg tablet 5 mg PO DAILY diabetes 10/09/23
linagliptin 5 mg tablet (Tradjenta) 5 mg PO DAILY diabetes 10/09/23
albuterol sulfate 90 mcg/actuation aerosol inhaler 2 puff inhalation R Q6HPRN PRN shortness of breath or wheezing 04/28/24
fluticasone furoate 100 mcg-vilanterol 25 mcg/dose inhalation powder (Breo Ellipta) 1 inh inhalation R DAILY 04/28/24
lisinopril 5 mg tablet 5 mg PO QPM 04/28/24
Review of Systems
-
Constitutional: Reports No Symptoms
EENT: Reports No Symptoms
Respiratory: Reports No Symptoms
Cardiac: Reports No Symptoms
Abdomen/GI: Reports No Symptoms
: Reports No Symptoms
Musculoskeletal: Reports Other (left lower back pain)
Skin: Reports No Symptoms
Neurological: Reports Weakness
Endocrine: Reports No Symptoms
Hematologic/Lymphatic: Reports No Symptoms
Psych: Reports No Symptoms
Physical Exam
Vital Signs
Vital Signs
Temp Pulse Resp BP Pulse Ox
98.0 F 53 20 158/81 95
04/28/24 10:56 04/28/24 12:00 04/28/24 10:56 04/28/24 13:00 04/28/24 13:30
Physical Exam
General: Well Developed, Well Nourished and No Apparent Distress
HEENT: NormoCephalic, Moist mucous membranes and Atraumatic
Respiratory: Clear
Cardiac: S1/S2 and Regular Rhythm; No Murmur or Rub
GI: Soft, Non Tender, Non Distended and Normal Bowel Sounds; No Organomegaly
Rectal: Deferred by Provider
Musculoskeletal: No Clubbing, No Cyanosis and No Edema
Skin: No Rash
Neuro: AO x 3 and Nonfocal/grossly intact
Psych: Calm
Laboratory Results
-
04/28/24 10:57
04/28/24 10:57
Laboratory Results
Total Bilirubin Cancelled 04/28/24 10:57
AST Cancelled 04/28/24 10:57
ALT Cancelled 04/28/24 10:57
Alkaline Phosphatase Cancelled 04/28/24 10:57
Data Reviewed
-
CT Scan: Report Reviewed by me
Lab Data: Labs Reviewed by me
Impression/Plan
-
# Acute low back pain
# Ambulatory dysfunction due to back pain
-PT recommended rehab placement
-Tylenol [id number], lidocaine patch, tramadol Dilaudid as needed for pain
CT abdomen pelvis with impression of no acute pathology of the abdomen or pelvis identified.Gallstone. Enlarged..Mild pancreatic fatty infiltration. Stable.Right nephrectomy. Stable.Moderate fecal material throughout the colon. Stable Mild
diverticulosis. Stable Moderate L2/L3 canal stenosis. Slightly progressed. See above.Tiny pericardial effusion versus pericardial thickening. Stable
-PT consulted
#chronic CHF with reduced EF of 50%
-Furosemide continued
-Strict DIANDRA, daily weight
#Atrial fibrillation -unknown type
-Obtain EKG
-continued Coreg
-Tikosyn, Xarelto continued
# Type 2 diabetes
-Glipizide, Tradjenta continued
- sliding scale
-Carb controlled diet
#CAD/AL
#Hypertension
-Norvasc, lisinopril continue with all parameters
# Hyperlipidemia
-Statin continued
Diabetes mellitus type 2-continue with his oral hypoglycemic agents and SSI
#CKD 3 Cr
Cr 2.0
# History of renal cell carcinoma status post prior right nephrectomy for cancer
Full code
CW PT eval .
--- NOTE | 2024-04-28 17:05 | W.PN.UPDATE ---
Update Note
Progress Note Update
This is an addendum to the H&P written by Elayne Matute on 04/28/2024. Patient seen examined independently with BATCH FREEZER OPERATOR.
83-year-old male past medical history of CAD, HFrEF, atrial fibrillation on Xarelto, hypertension, type 2 diabetes, hyperlipidemia, CKD 3, renal cell carcinoma status post right nephrectomy here for acute sharp left lower back pain without radiation
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 He has had chronic lower extremity weakness of the left lower extremity but has been unable to walk recently.
On examination patient has diminished drink of left lower extremity. There is tenderness in the left lower back paraspinal region. CT abdomen pelvis without any acute abnormality. Check MRI lumbar spine to evaluate for herniated disc/spinal
stenosis. Standing Tylenol, tramadol, as needed Dilaudid, lidocaine patch, PT/OT.
[2024-04-28] MEDS: DILAUDID 0.25 MG IV (17:30)
[2024-04-28 22:12] LABS: Glucose - Point of Care 112 mg/dl (70-99)
[2024-04-28] MEDS: COREG PO (22:40)
[2024-04-28] MEDS: LIPITOR 40 MG PO (23:08)
[2024-04-28] MEDS: XARELTO 20 MG PO (23:08)
[2024-04-28] MEDS: TIKOSYN 250 MCG PO (23:09)
[2024-04-28] MEDS: TIKOSYN 125 MCG PO (23:09)
[2024-04-28] MEDS: ZESTRIL 5 MG PO (23:10)
[2024-04-28] MEDS: TYLENOL 1000 MG PO (23:34)
[2024-04-29] VITALS (7 sets, daily range): BP systolic 120–141; BP diastolic 57–70; PULSE 55; BMI 43.0
--- NOTE | 2024-04-29 04:11 | PTCARENOTE ---
Pt received from ER [id number] able to make his needs known.Pt oob with 2 person assist. Fall precautions maintained. Pt oriented to room & call garner in reach.Plan of care continued.
[2024-04-29] MEDS: SYMBICORT 160/4.5 MCG INHALER 2 PUFF INH ×2 (07:54→19:09)
[2024-04-29 08:16] LABS: Glucose - Point of Care 112 mg/dl (70-99)
[2024-04-29] MEDS: LASIX 40 MG PO (08:33)
[2024-04-29] MEDS: JANUVIA 50 MG PO (08:34)
[2024-04-29] MEDS: COREG 6.25 MG PO ×2 (08:34→19:45)
[2024-04-29] MEDS: PROTONIX 40 MG PO (08:34)
[2024-04-29] MEDS: NORVASC 5 MG PO (08:34)
[2024-04-29] MEDS: KCL 10 MEQ PO (08:34)
[2024-04-29] MEDS: LIDOCAINE 4% PATCH 1 PATCH TOPICAL (08:36)
[2024-04-29] MEDS: TYLENOL 1000 MG PO ×2 (08:37→15:44)
[2024-04-29] MEDS: TIKOSYN 250 MCG PO ×2 (08:41→19:45)
[2024-04-29] MEDS: TIKOSYN 125 MCG PO ×2 (08:42→19:45)
[2024-04-29] MEDS: MIRALAX 17 GRAMS PO (08:55)
[2024-04-29 08:58] LABS: Hematocrit 34.9 % (39.0-52.0); Hemoglobin 11.8 g/dL (13.0-18.0); Mean Corp Hgb Conc. 33.8 g/dL (33.0-37.0); Mean Corpuscular Hgb 31.2 pg (27.0-31.0); Mean Corpuscular Volume 92.3 fL (80.0-94.0); Mean Platelet Volume 9.2 fL (7.4-10.4); Platelet Count 193 10^3/uL (130-400); Red Blood Cell Count 3.78 10^6/uL (4.70-6.10); Red Cell Dist. Width 13.9 % (11.5-14.5); White Blood Cell Count 5.6 10^3/uL (4.8-10.8)
--- NOTE | 2024-04-29 09:04 | W.PN.HOSP.TC ---
Today's Communication/Plan
-
Pain control. PT OT
Assessment / Plan
Assessment / Plan
Physical Exam
General: Well Developed, Well Nourished and No Apparent Distress
HEENT: NormoCephalic, Moist mucous membranes and Atraumatic
Respiratory: Clear
Cardiac: S1/S2 and Regular Rhythm; No Murmur or Rub
GI: Soft, Non Tender, Non Distended and Normal Bowel Sounds; No Organomegaly
Rectal: Deferred by Provider
Musculoskeletal: Pain in the lower lumbar area around the buttock. No Clubbing, No Cyanosis and No Edema
Skin: No Rash
Neuro: AO x 3 and Nonfocal/grossly intact
Psych: Calm
A/P:
# Acute low back pain
# Ambulatory dysfunction due to back pain
-PT recommended rehab placement initially but upon reevaluation recommended home versus skilled so we will reevaluate tomorrow.
-Tylenol [id number], lidocaine patch, tramadol Dilaudid as needed for pain
CT abdomen pelvis with impression of no acute pathology of the abdomen or pelvis identified.Gallstone. Enlarged..Mild pancreatic fatty infiltration. Stable.Right nephrectomy. Stable.Moderate fecal material throughout the colon. Stable Mild
diverticulosis. Stable Moderate L2/L3 canal stenosis. Slightly progressed. See above.Tiny pericardial effusion versus pericardial thickening. Stable
-PT consulted
-MRI ordered but I do not think MRI machine is working. In any event he might not need it if improves over the next 24 hours.
#chronic CHF with reduced EF 35% and then improved to 50%
-Furosemide hold from today on and repeat renal function in a.m.
-Strict DIANDRA, daily weight
# Paroxysmal atrial fibrillation
-continued Coreg
-Tikosyn, Xarelto continued but adjust doses to renal function
# Type 2 diabetes
-Glipizide, Tradjenta continued
- sliding scale
-Carb controlled diet
#CAD/[place]
-Continue current anti-ischemic regimen
#Hypertension
-Norvasc continue with all parameters
-Hold lisinopril
# Hyperlipidemia
-Statin continued
Diabetes mellitus type 2-continue with his oral hypoglycemic agents and SSI
#CKD 3 Cr
Cr 2.0-->1.9
-Hold lisinopril, furosemide, and Januvia today until next renal function tomorrow.
# History of renal cell carcinoma status post prior right nephrectomy for cancer
Full code
Anticipated Discharge: Within 24 hours
Subjective/Interval History
-
Date of Service: April 29, 2024
Patient pain is slightly better today but still uncomfortable to walk. Does not have radiation pain into the legs. No bowel bladder incontinence. Afebrile
Objective Data
-
Labs:
Laboratory Results
04/29/24
07:59
WBC 5.6
Hgb 11.8 L
Hct 34.9 L
Plt Count 193
Sodium Pending
Potassium Pending
Chloride Pending
Carbon Dioxide Pending
BUN Pending
Creatinine Pending
Glucose Pending
Calcium Pending
Vital Signs:
Vital Signs
Temp Pulse Resp BP Pulse Ox
97.9 F 69 18 132/65 95
04/29/24 08:00 04/29/24 08:33 04/29/24 08:00 04/29/24 08:33 04/29/24 08:00
I&O
04/28/24 04/29/24 04/30/24
06:59 06:59 06:59
Intake Total 240 / 240
Output Total 480 / 480
Balance -240 / -240
[2024-04-29] MEDS: GLUCOTROL 5 MG PO (09:22)
[2024-04-29 10:09] LABS: Blood Urea Nitrogen 41 mg/dl (9-20); Calcium 8.8 mg/dl (8.4-10.2); Carbon Dioxide 27 mmol/L (22-30); Chloride 106 mmol/L (98-107); Estimated Creatinine Clearance 35 ml/min; Glucose 110 mg/dl (70-99); Sodium 145 mmol/L (135-145); eGFR 34.57
[2024-04-29 12:10] LABS: Glucose - Point of Care 147 mg/dl (70-99)
[2024-04-29 16:30] LABS: Glucose - Point of Care 175 mg/dl (70-99)
--- NOTE | 2024-04-29 17:17 | CM ---
Alert awake oriented patient who lives with his Amador who lives in a 2 story home with 1 step to enter and 14 steps to bed and bathroom. He is assisted with some ADLS at home.He drives. MYERS letter explained in detail. He declined to sign MYERS
letter.He was offered VN he has not decided if he wants VN , Out pt PT or nothing.
[facility] hx /Brady history
Pharmacy [facility]
PCP DR Cano
PLAN Home possible VN if pt requests
[2024-04-29] MEDS: XARELTO 15 MG PO (17:19)
[2024-04-29] MEDS: LIPITOR 40 MG PO (17:19)
[2024-04-29] MEDS: DILAUDID 0.25 MG IV (17:32)
[2024-04-29] MEDS: ULTRAM 100 MG PO (17:37)
[2024-04-29 21:16] LABS: Glucose - Point of Care 132 mg/dl (70-99)
[2024-04-29] MEDS: TYLENOL PO (22:16)
[2024-04-30 03:29] VITALS: BP 133/47
[2024-04-30] MEDS: ATIVAN 0.5 MG IV (03:45)
[2024-04-30] MEDS: NSS (PRESERVATIVE FREE) 0.25 ML IV (03:45)
[2024-04-30 04:33] VITALS: BMI 43.3
[2024-04-30] MEDS: ULTRAM 100 MG PO (04:50)
[2024-04-30] MEDS: SYMBICORT 160/4.5 MCG INHALER 2 PUFF INH (07:29)
[2024-04-30 07:36] VITALS: BP 131/71
[2024-04-30 08:09] LABS: Blood Urea Nitrogen 47 mg/dl (9-20); Calcium 8.5 mg/dl (8.4-10.2); Carbon Dioxide 28 mmol/L (22-30); Chloride 104 mmol/L (98-107); Estimated Creatinine Clearance 37 ml/min; Glucose 129 mg/dl (70-99); Potassium 4.2 mmol/L (3.5-5.1); Sodium 142 mmol/L (135-145); eGFR 36.89
[2024-04-30 08:12] LABS: Glucose - Point of Care 139 mg/dl (70-99)
--- NOTE | 2024-04-30 08:35 | W.PN.HOSP.TC ---
Today's Communication/Plan
-
Discharge planning today
Assessment / Plan
Assessment / Plan
Physical Exam
General: Well Developed, Well Nourished and No Apparent Distress
HEENT: NormoCephalic, Moist mucous membranes and Atraumatic
Respiratory: Clear
Cardiac: S1/S2 and Regular Rhythm; No Murmur or Rub
GI: Soft, Non Tender, Non Distended and Normal Bowel Sounds; No Organomegaly
Rectal: Deferred by Provider
Musculoskeletal: Pain in the lower lumbar area around the buttock improving. No Clubbing, No Cyanosis and No Edema
Skin: No Rash
Neuro: AO x 3 and Nonfocal/grossly intact
Psych: Calm
A/P:
# Acute low back pain
# Ambulatory dysfunction due to back pain
-PT recommended rehab placement initially but upon reevaluation recommended home versus skilled so we will reevaluate tomorrow.
-Tylenol [id number], lidocaine patch, tramadol Dilaudid as needed for pain
CT abdomen pelvis with impression of no acute pathology of the abdomen or pelvis identified.Gallstone. Enlarged..Mild pancreatic fatty infiltration. Stable.Right nephrectomy. Stable.Moderate fecal material throughout the colon. Stable Mild
diverticulosis. Stable Moderate L2/L3 canal stenosis. Slightly progressed. See above.Tiny pericardial effusion versus pericardial thickening. Stable
-PT consulted
-MRI completed and shows multiple abnormalities with mainly DJD--> continue medical management. Plan to discharge home today.
#chronic CHF with reduced EF 35% and then improved to 50%
-Furosemide can be restarted upon discharge
-Strict DIANDRA, daily weight
# Paroxysmal atrial fibrillation
-continued Coreg
-Tikosyn, Xarelto continued but adjust doses to renal function
# Type 2 diabetes
-Glipizide, Tradjenta continued
- sliding scale
-Carb controlled diet
#CAD/[place]
-Continue current anti-ischemic regimen
#Hypertension
-Norvasc continue with all parameters
-lisinopril can be restarted upon discharge
# Hyperlipidemia
-Statin continued
Diabetes mellitus type 2-continue with his oral hypoglycemic agents and SSI
#CKD 3 Cr
Cr 2.0-->1.9
-Restart upon discharge lisinopril, furosemide, and Januvia since renal function is stable.
# History of renal cell carcinoma status post prior right nephrectomy for cancer
Full code
Anticipated Discharge: Today
Subjective/Interval History
-
Date of Service: April 30, 2024
Patient doing better in terms of pain.
Objective Data
-
Labs:
Laboratory Results
04/30/24
07:05
Sodium 142
Potassium 4.2
Chloride 104
Carbon Dioxide 28
BUN 47 H
Creatinine 1.8 H
Glucose 129 H
Calcium 8.5
Vital Signs:
Vital Signs
Temp Pulse Resp BP Pulse Ox
98.5 F 60 18 131/71 96
04/30/24 07:36 04/30/24 07:36 04/30/24 07:36 04/30/24 07:36 04/30/24 07:36
I&O
04/29/24 04/30/24 05/01/24
06:59 06:59 06:59
Intake Total 240 / 240 1380 / 1380
Output Total 480 / 480
Balance -240 / -240 1380 / 1380
[2024-04-30] MEDS: LIDOCAINE 4% PATCH 1 PATCH TOPICAL (09:09)
[2024-04-30] MEDS: KCL 10 MEQ PO (09:12)
[2024-04-30] MEDS: GLUCOTROL 5 MG PO (09:12)
[2024-04-30] MEDS: COREG PO (09:14)
[2024-04-30] MEDS: TIKOSYN 250 MCG PO (09:15)
[2024-04-30] MEDS: TYLENOL 500 MG PO (09:18)
[2024-04-30] MEDS: TIKOSYN 125 MCG PO (09:18)
[2024-04-30] MEDS: NORVASC 5 MG PO (09:20)
[2024-04-30] MEDS: PROTONIX 40 MG PO (09:20)
[2024-04-30 11:15] VITALS: BP 140/64
[2024-04-30 11:51] LABS: Glucose - Point of Care 101 mg/dl (70-99)
--- NOTE | 2024-04-30 12:14 | W.DCSUMMARY ---
Discharge Summary
Discharge Data
Date of Admission: 04/28/24
Date of Discharge: 04/30/24
-
Pending Results: No
Hospital Course
Patient 83 years old male with multiple medical problems including CAD, CHF, A-fib, hypertension, diabetes mellitus, hyperlipidemia, COPD, prior renal cell carcinoma with right nephrectomy, HEMANTH, obesity came into the hospital and acute back pain.
Patient was started on pain medications. PT evaluated the patient. Patient underwent MRI of the lumbar spine that shows significant degenerative changes of the lumbar spine and multiple nonspecific abnormalities. Patient pain improved. No
surgical intervention required based on MRI findings. Home health arrangements upon discharge. Patient is being discharged in relatively stable condition today.
Discharge Plan
-
Patient Disposition: Home with Home Care
Discharge Diagnosis/Procedures: Acute back pain. CKD stage III. Chronic systolic congestive heart failure. Paroxysmal atrial fibrillation. History of coronary disease
Diet: Low Cholesterol, 2 Gram Sodium, Diabetic, Carb Controlled and Restrict fluids to 48 oz
Activity: As tolerated
Blood Work: Please PCP to order CBC, BMP within 1 week
Specialty Instructions: Weigh Daily- Call MD for wt gain/loss 3 lbs overnight/5 lbs in 1 week
Referrals:
Macy Spring, DO [Family Provider] - in less than 1 week
Prescriptions:
New
polyethylene glycol 3350 [HealthyLax] 17 gram Powder In Packet
17 g PO DAILY 14 Days Qty: 14 0RF
tramadol 50 mg Tablet
100 mg PO Q6HPRN PRN (Reason: moderate pain) Qty: 14 0RF
Continued
atorvastatin 40 MG tablet
40 mg PO QPM
Xarelto 20 MG tablet
20 mg PO QPM
mesalamine [Apriso] 0.375 GM capsule,extended release 24hr
0.375 g PO DAILY
pantoprazole 40 MG tablet,delayed release (DR/EC)
40 mg PO DAILY
potassium chloride 10 MEQ tablet,ER particles/crystals
10 meq PO DAILY
dofetilide 250 MCG capsule
250 mcg PO BID
Patient Comments:
04/28/2024: Taken w/ 125mcg= 375mcg
dofetilide 125 MCG capsule
125 mcg PO BID
Patient Comments:
04/28/2024: Taken w/ 250mcg= 375mcg
furosemide 40 mg tablet
40 mg PO DAILY
carvedilol 6.25 mg tablet
6.25 mg PO BID
glipizide 5 mg Tablet
5 mg PO DAILY
Tradjenta 5 mg Tablet
5 mg PO DAILY
amlodipine 5 mg tablet
5 mg PO DAILY
cyanocobalamin (vitamin B-12) 1,000 mcg Tablet
1,000 mcg PO DAILY
coQ10 (ubiquinol) 100 mg Capsule
100 mg PO DAILY
lisinopril 5 mg tablet
5 mg PO QPM
fluticasone furoate-vilanterol [Breo Ellipta] 100-25 mcg/dose blister with device
1 inh INHALATION R DAILY
albuterol sulfate 90 mcg/actuation HFA aerosol inhaler
2 puff inhalation R Q6HPRN PRN (Reason: shortness of breath or wheezing)
Discharge Orders:
Discharge Patient (As Directed); Ordered 04/30/24
Ordered By: Jhon Lee
Discharge Date and Time
Discharge Date/Time: 04/30/24 16:44
Print Language: FRISIAN
--- NOTE | 2024-04-30 14:55 | VNURNOTE ---
Home Health Liaison spoke with spouse and patient on speaker phone to discuss [facility] nurse/therapy, visits, schedule and homebound status. At this time, patient and spouse are declining [facility].
--- NOTE | 2024-04-30 16:16 | CM ---
entered order for discharge.
MRI done.
Spoke with pt and at bedside.
Offered VN he requested [facility] [place] liaison [facility] notified.
will drive him home.
PLAN Home with [facility]
== END 2024-04-30 16:44 | disposition home health service (06) ==
LOC: 4 EAST ACU 17:04
PROVIDERS: Registered Nurse; ADMITTING PHYSICIAN Hospitalist; ATTENDING PHYSICIAN Hospitalist; EMERGENCY PHYSICIAN Emergency Medicine; FAMILY PHYSICIAN Internal Medicine
DX: M47.816 Spondylosis without myelopathy or radiculopathy, lumbar region (principal); M54.50 Low back pain, unspecified; R26.2 Difficulty in walking, not elsewhere classified; R53.1 Weakness; E11.22 Type 2 diabetes mellitus with diabetic chronic kidney disease; I25.10 Atherosclerotic heart disease of native coronary artery without angina pectoris; M48.061 Spinal stenosis, lumbar region without neurogenic claudication; N18.30 Chronic kidney disease, stage 3 unspecified; I50.22 Chronic systolic (congestive) heart failure; I48.0 Paroxysmal atrial fibrillation; J44.89 Other specified chronic obstructive pulmonary disease; E78.00 Pure hypercholesterolemia, unspecified; G47.33 Obstructive sleep apnea (adult) (pediatric); I25.2 Old myocardial infarction; K57.30 Diverticulosis of large intestine without perforation or abscess without bleeding; K80.20 Calculus of gallbladder without cholecystitis without obstruction; I31.39 Other pericardial effusion (noninflammatory); I42.9 Cardiomyopathy, unspecified; I44.7 Left bundle-branch block, unspecified; I13.0 Hypertensive heart and chronic kidney disease with heart failure and stage 1 through stage 4 chronic kidney disease, or unspecified chronic kidney disease; Z87.01 Personal history of pneumonia (recurrent); Z87.11 Personal history of peptic ulcer disease; Z91.041 Radiographic dye allergy status; Z88.0 Allergy status to penicillin; Z79.84 Long term (current) use of oral hypoglycemic drugs; Z79.51 Long term (current) use of inhaled steroids; Z79.01 Long term (current) use of anticoagulants; Z90.5 Acquired absence of kidney; Z87.19 Personal history of other diseases of the digestive system; Z85.528 Personal history of other malignant neoplasm of kidney
CPT/HCPCS: 72148; 74176; 80048; 82962; 85027; 93005; 94640; 97116; 97530; 99285; G0378

== ENCOUNTER → 2024-05-08 09:05 | Outpatient (REF) | payer MEDICARE, OTHER, SELFPAY ==
[2024-05-08 11:33] LABS: % Basophils 0.5 % (0-2); % Eosinophils 4.5 % (0-6); % Immature Granulocytes 1.2 % (0-0.5); % Lymphocytes 14.7 % (20.5-51.1); % Monocytes 10.2 % (1.7-9.3); % Neutrophils 68.9 % (42.2-75.2); Absolute Eosinophils 0.3 10^3/uL (0-0.7); Absolute Immature Granulocytes 0.1 10^3/uL (0-0.05); Absolute Lymphocytes 0.9 10^3/uL (1.2-3.4); Absolute Monocytes 0.6 10^3/uL (0.1-0.6); Hematocrit 35.7 % (39.0-52.0); Hemoglobin 12.2 g/dL (13.0-18.0); Mean Corp Hgb Conc. 34.2 g/dL (33.0-37.0); Mean Corpuscular Hgb 31.5 pg (27.0-31.0); Mean Corpuscular Volume 92.2 fL (80.0-94.0); Mean Platelet Volume 9.3 fL (7.4-10.4); Nucleated Red Blood Cells % 0 % (-); Platelet Count 181 10^3/uL (130-400); Red Blood Cell Count 3.87 10^6/uL (4.70-6.10); Red Cell Dist. Width 13.7 % (11.5-14.5); White Blood Cell Count 5.8 10^3/uL (4.8-10.8)
[2024-05-08 12:06] LABS: Blood Urea Nitrogen 40 mg/dl (9-20); Calcium 8.5 mg/dl (8.4-10.2); Carbon Dioxide 25 mmol/L (22-30); Chloride 103 mmol/L (98-107); Glucose 97 mg/dl (70-99); Potassium 4.5 mmol/L (3.5-5.1); Sodium 141 mmol/L (135-145); eGFR 34.57
== END ==
LOC: REG 09:05
PROVIDERS: ATTENDING PHYSICIAN Internal Medicine
DX: Z90.5 Acquired absence of kidney (principal); N18.31 Chronic kidney disease, stage 3a; R79.89 Other specified abnormal findings of blood chemistry; D64.9 Anemia, unspecified
CPT/HCPCS: 36415; 80048; 85025

== ENCOUNTER → 2024-05-23 07:04 | Outpatient (REF) | payer MEDICARE, OTHER, SELFPAY ==
[2024-05-23 08:46] LABS: Albumin 3.7 g/dl (3.5-5.0); Blood Urea Nitrogen 36 mg/dl (9-20); Calcium 8.7 mg/dl (8.4-10.2); Carbon Dioxide 28 mmol/L (22-30); Chloride 106 mmol/L (98-107); Glucose 124 mg/dl (70-99); Phosphorus 3.2 mg/dl (2.5-4.5); Potassium 4.4 mmol/L (3.5-5.1); Sodium 144 mmol/L (135-145); eGFR 32.51
== END ==
LOC: REG 07:04
PROVIDERS: ATTENDING PHYSICIAN Specialist; FAMILY PHYSICIAN Internal Medicine
DX: I10 Essential (primary) hypertension (principal); E78.00 Pure hypercholesterolemia, unspecified; R76.8 Other specified abnormal immunological findings in serum; E78.5 Hyperlipidemia, unspecified; Z90.5 Acquired absence of kidney
CPT/HCPCS: 36415; 80069

== ENCOUNTER 2024-08-03 16:41 | Emergency (ER) | payer MEDICARE, OTHER, SELFPAY ==
[2024-08-03 16:55] VITALS: BP 132/76
--- NOTE | 2024-08-03 17:11 | ED.GENMED ---
ED Provider Triage
-
Patient seen by provider in Triage?: Seen in Triage
Attestation: A medical screening examination has been initiated by a qualified medical provider. Based on the assessment performed at this time, it has been determined that an emergent medical condition may exist and the patient has been informed
that further medical evaluation and possible additional diagnostic testing may be needed.
HPI: 84-year-old male is here for nausea and vomiting, diarrhea since yesterday.
GENERAL: Alert , in no apparent distress
EYE: No visual abnormalities.
NECK: Trachea midline
ENT: No visible abnormalities.
LUNGS: No acute respiratory distress
NEUROLOGICAL: Alert and oriented
SKIN: Skin intact. No visible changes.
MUSCULOSKELETAL: Moving extremities normally
PSYCH: Normal and appropriate interaction.
This is a medical evaluation conducted in person to initiate diagnostic evaluation and provide initial therapeutics. Please see further documentation by the treating clinician.
History of Present Illness
General
Chief Complaint: Abdominal Symptoms
History of Present Illness
History of Present Illness:
..
Past History
Past History
ED Past Medical History: Arrthythmia (Atrial fib), Asthma, CAD, Cancer (renal cell carcinoma on the right), CHF, COPD, HTN, Hypercholesterolemia, NIDDM, [place], Other (Patton's esophagitis, rectal bleeding) and Other (obstructive Sleep apnea,
pneumonia, edema, diverticulitis, stomach ulcers, arthritis, PNA); Negative Renal failure (stage III a)
ED Past Surgical History: Cardiac (PTCA, cardioversion 2019), Tonsilectomy, Urological (right nephrectomy secondary to renal cell carcinoma) and Other (rectal Fistula surgery)
Social History
Tobacco: Non-smoker
Alcohol: None
Drug: None
Personal:
Living: with family
Employment: Retired
Family History
Family History: Other
Phy Exam
Physical Exam
Physical Exam:
..
Course
Orders/Labs/Results
Orders:
Orders
08/03/24 17:12
Ondansetron Orally Disint [Zofran Odt (Orally Disintegrating)] 4 mg PO NOW STA
08/03/24 17:20
Ondansetron Orally Disint [Zofran Odt (Orally Disintegrating)] 4 mg .ROUTE .STK-MED ONE
08/03/24 17:32
Complete Blood Count/With Diff Urgent
Comprehensive Metabolic Panel Urgent
Abnormal Lab Results
08/03/24
17:32
RBC 4.45 L 10^6/uL
(4.70-6.10)
Absolute Neuts (auto) 8.6 H 10^3/uL
(1.4-6.5)
Absolute Lymphs (auto) 0.6 L 10^3/uL
(1.2-3.4)
Neutrophils % 88.2 H %
(42.2-75.2)
Lymphocytes % 5.7 L %
(20.5-51.1)
BUN 38 H mg/dl
(9-20)
Creatinine 1.8 H mg/dL
(0.7-1.3)
Glucose 171 H mg/dl
(70-99)
Alkaline Phosphatase 133 H U/L
(38-126)
08/03/24 17:32
08/03/24 17:32
Vital Signs
Initial and Last Documented VS:
Initial Vital Signs
Temp Pulse Resp BP Pulse Ox
98.2 F 79 20 132/76 97
08/03/24 16:55 08/03/24 16:55 08/03/24 16:55 08/03/24 16:55 08/03/24 16:55
Last Documented Vital Signs
Temp Pulse Resp BP Pulse Ox
98.2 F 79 20 132/76 97
08/03/24 16:55 08/03/24 16:55 08/03/24 16:55 08/03/24 16:55 08/03/24 16:55
*Critical Care Note
Total Time (30-74mins, 75-104mins- exclusive of procedures): Not Applicable
ED Attending Note
-
Portions of this chart may have been created with voice recognition software.� Occasional wrong word or��sound alike� substitutions may have occurred due to the inherent limitations of voice recognition software.
Discharge Plan
Departure
Patient Disposition: Elopement
Prescriptions:
No Action
atorvastatin 40 MG tablet
40 mg PO QPM
Xarelto 20 MG tablet
20 mg PO QPM
mesalamine [Apriso] 0.375 GM capsule,extended release 24hr
0.375 g PO DAILY
pantoprazole 40 MG tablet,delayed release (DR/EC)
40 mg PO DAILY
potassium chloride 10 MEQ tablet,ER particles/crystals
10 meq PO DAILY
dofetilide 250 MCG capsule
250 mcg PO BID
Patient Comments:
04/28/2024: Taken w/ 125mcg= 375mcg
dofetilide 125 MCG capsule
125 mcg PO BID
Patient Comments:
04/28/2024: Taken w/ 250mcg= 375mcg
furosemide 40 mg tablet
40 mg PO DAILY
carvedilol 6.25 mg tablet
6.25 mg PO BID
glipizide 5 mg Tablet
5 mg PO DAILY
Tradjenta 5 mg Tablet
5 mg PO DAILY
amlodipine 5 mg tablet
5 mg PO DAILY
cyanocobalamin (vitamin B-12) 1,000 mcg Tablet
1,000 mcg PO DAILY
coQ10 (ubiquinol) 100 mg Capsule
100 mg PO DAILY
lisinopril 5 mg tablet
5 mg PO QPM
fluticasone furoate-vilanterol [Breo Ellipta] 100-25 mcg/dose blister with device
1 inh INHALATION R DAILY
albuterol sulfate 90 mcg/actuation HFA aerosol inhaler
2 puff inhalation R Q6HPRN PRN (Reason: shortness of breath or wheezing)
polyethylene glycol 3350 [HealthyLax] 17 gram Powder In Packet
17 g PO DAILY 14 Days Qty: 14 0RF
tramadol 50 mg Tablet
100 mg PO Q6HPRN PRN (Reason: moderate pain) Qty: 14 0RF
Referrals:
Macy Spring DO [Family Provider] -
Interventions
Interventions:
*Risk Screen - Suicide Last Done: 08/03/24 16:55
*General Assessment Last Done: 08/03/24 16:55
*Neglect/Abuse Screening Last Done: 08/03/24 16:55
*Nursing Disposition Last Done: 08/03/24 19:51
Discharge Date and Time
Discharge Date/Time: 08/03/24 19:52
Print Language: UZBEK
[2024-08-03] MEDS: ZOFRAN ODT (ORALLY DISINTEGRATING) 4 MG PO (17:20)
[2024-08-03 17:39] LABS: % Basophils 0.2 % (0-2); % Eosinophils 0.7 % (0-6); % Immature Granulocytes 0.4 % (0-0.5); % Lymphocytes 5.7 % (20.5-51.1); % Monocytes 4.8 % (1.7-9.3); % Neutrophils 88.2 % (42.2-75.2); Absolute Eosinophils 0.1 10^3/uL (0-0.7); Absolute Lymphocytes 0.6 10^3/uL (1.2-3.4); Absolute Monocytes 0.5 10^3/uL (0.1-0.6); Absolute Neutrophils 8.6 10^3/uL (1.4-6.5); Hematocrit 40.9 % (39.0-52.0); Hemoglobin 13.6 g/dL (13.0-18.0); Mean Corp Hgb Conc. 33.3 g/dL (33.0-37.0); Mean Corpuscular Hgb 30.6 pg (27.0-31.0); Mean Corpuscular Volume 91.9 fL (80.0-94.0); Mean Platelet Volume 8.6 fL (7.4-10.4); Nucleated Red Blood Cells % 0 % (-); Platelet Count 198 10^3/uL (130-400); Red Blood Cell Count 4.45 10^6/uL (4.70-6.10); Red Cell Dist. Width 12.9 % (11.5-14.5); White Blood Cell Count 9.8 10^3/uL (4.8-10.8)
[2024-08-03 18:03] LABS: ALT (SGPT) 20 U/L (0-50); AST (SGOT) 21 U/L (17-59); Alkaline Phosphatase 133 U/L (38-126); Blood Urea Nitrogen 38 mg/dl (9-20); Calcium 8.9 mg/dl (8.4-10.2); Carbon Dioxide 26 mmol/L (22-30); Chloride 103 mmol/L (98-107); Glucose 171 mg/dl (70-99); Potassium 4.6 mmol/L (3.5-5.1); Sodium 139 mmol/L (135-145); Total Bilirubin 0.7 mg/dl (0.2-1.3); Total Protein 7.1 g/dl (6.3-8.2); eGFR 36.66
== END 2024-08-03 19:52 | disposition left against medical advice (07) ==
LOC: EMR 16:41
PROVIDERS: Registered Nurse; EMERGENCY PHYSICIAN Emergency Medicine; FAMILY PHYSICIAN Internal Medicine
DX: R11.2 Nausea with vomiting, unspecified (principal); E11.9 Type 2 diabetes mellitus without complications; E78.00 Pure hypercholesterolemia, unspecified; G47.33 Obstructive sleep apnea (adult) (pediatric); I11.0 Hypertensive heart disease with heart failure; I50.9 Heart failure, unspecified; I25.10 Atherosclerotic heart disease of native coronary artery without angina pectoris; Z85.528 Personal history of other malignant neoplasm of kidney; Z87.19 Personal history of other diseases of the digestive system; Z53.29 Procedure and treatment not carried out because of patient's decision for other reasons
CPT/HCPCS: 99283; 80053; 85025

== ENCOUNTER → 2024-09-07 14:51 | Outpatient (REF) | payer MEDICARE, OTHER, SELFPAY ==
[2024-09-07 16:37] LABS: Albumin 3.6 g/dl (3.5-5.0); Blood Urea Nitrogen 42 mg/dl (9-20); Calcium 8.4 mg/dl (8.4-10.2); Carbon Dioxide 29 mmol/L (22-30); Chloride 104 mmol/L (98-107); Glucose 148 mg/dl (70-99); Phosphorus 3.1 mg/dl (2.5-4.5); Potassium 3.9 mmol/L (3.5-5.1); Sodium 142 mmol/L (135-145); eGFR 34.35
== END ==
LOC: REG 14:51
PROVIDERS: ATTENDING PHYSICIAN Specialist
DX: N18.31 Chronic kidney disease, stage 3a (principal)
CPT/HCPCS: 36415; 80069

== ENCOUNTER → 2024-09-10 14:48 | Outpatient (REF) | payer MEDICARE, OTHER, SELFPAY ==
[2024-09-10 16:04] LABS: Microalbumin/creatinine Ratio 10.8 mg/g
[2024-09-11 09:31] LABS: Glycohemoglobin (HgbA1c) 7.1 % (4.0-5.6)
== END ==
LOC: REG 14:48
PROVIDERS: ATTENDING PHYSICIAN Specialist; FAMILY PHYSICIAN Internal Medicine
DX: N18.31 Chronic kidney disease, stage 3a (principal); E11.9 Type 2 diabetes mellitus without complications
CPT/HCPCS: 36415; 82043; 82570; 83036

== ENCOUNTER → 2024-10-05 12:58 | Outpatient (REF) | payer MEDICARE, OTHER, SELFPAY ==
--- NOTE | 2024-10-05 14:43 | CARDSERVLU ---
Echocardiogram with Lumason completed after protocol screening completed. Allergies verified.
Patent IV site: 24g angio inserted by IV team (successful on 4th attempt)
IV site flushed with 0.9% NaCl pre and post administration.
Diluted bolus method utilized to enhance visualization of ventricular grullon.
Total volume given: 6.5 mL
Patient tolerated all procedures well without complications.
IV d/c'd and bandage applied after pressure held. Pt discharged to home without incident.
== END ==
LOC: RCS 12:58
PROVIDERS: ATTENDING PHYSICIAN Internal Medicine Cardiovascular Disease
DX: I48.0 Paroxysmal atrial fibrillation (principal); I10 Essential (primary) hypertension; I44.7 Left bundle-branch block, unspecified
CPT/HCPCS: 93306

== ENCOUNTER → 2024-10-22 10:06 | Outpatient (REF) | payer MEDICARE, OTHER, SELFPAY ==
[2024-10-22 11:24] LABS: % Basophils 0.7 % (0-2); % Eosinophils 4.5 % (0-6); % Immature Granulocytes 0.4 % (0-0.5); % Lymphocytes 13.7 % (20.5-51.1); % Monocytes 7.3 % (1.7-9.3); % Neutrophils 73.4 % (42.2-75.2); Absolute Basophils 0.1 10^3/uL (0-0.2); Absolute Eosinophils 0.3 10^3/uL (0-0.7); Absolute Lymphocytes 0.9 10^3/uL (1.2-3.4); Absolute Monocytes 0.5 10^3/uL (0.1-0.6); Hematocrit 39.1 % (39.0-52.0); Hemoglobin 13.1 g/dL (13.0-18.0); Mean Corp Hgb Conc. 33.5 g/dL (33.0-37.0); Mean Corpuscular Hgb 30.6 pg (27.0-31.0); Mean Corpuscular Volume 91.4 fL (80.0-94.0); Mean Platelet Volume 9.4 fL (7.4-10.4); Nucleated Red Blood Cells % 0 % (-); Platelet Count 195 10^3/uL (130-400); Red Blood Cell Count 4.28 10^6/uL (4.70-6.10); Red Cell Dist. Width 13.6 % (11.5-14.5); White Blood Cell Count 6.8 10^3/uL (4.8-10.8)
[2024-10-22 12:03] LABS: ALT (SGPT) 20 U/L (0-50); AST (SGOT) 21 U/L (17-59); Albumin 3.8 g/dl (3.5-5.0); Alkaline Phosphatase 151 U/L (38-126); Blood Urea Nitrogen 38 mg/dl (9-20); Calcium 8.8 mg/dl (8.4-10.2); Carbon Dioxide 29 mmol/L (22-30); Chloride 107 mmol/L (98-107); Glucose 157 mg/dl (70-99); HDL Cholesterol 37 mg/dl; LDL Cholesterol, Calculated 42 mg/dl; Potassium 4.1 mmol/L (3.5-5.1); Sodium 144 mmol/L (135-145); Total Bilirubin 0.7 mg/dl (0.2-1.3); Total Cholesterol 94 mg/dl (50-199); Total Protein 6.6 g/dl (6.3-8.2); Triglyceride 78 mg/dl (10-149); Very Low Density Lipoprotein 15 mg/dl (0-30); eGFR 34.35
[2024-10-22 12:13] LABS: Glycohemoglobin (HgbA1c) 7.4 % (4.0-5.6)
[2024-10-22 12:32] LABS: TSH 2.96 uIU/ml (0.47-4.68)
== END ==
LOC: RAD 10:06
PROVIDERS: ATTENDING PHYSICIAN Physician Assistant; FAMILY PHYSICIAN Internal Medicine; REFERRING PHYSICIAN Specialist
DX: N28.9 Disorder of kidney and ureter, unspecified (principal); N28.89 Other specified disorders of kidney and ureter; E11.65 Type 2 diabetes mellitus with hyperglycemia; N18.31 Chronic kidney disease, stage 3a; Z90.5 Acquired absence of kidney; Z79.899 Other long term (current) drug therapy
CPT/HCPCS: 36415; 71046; 76775; 80053; 80061; 83036; 84443; 85025

== ENCOUNTER → 2024-11-23 06:47 | Outpatient (REF) | payer MEDICARE, OTHER, SELFPAY ==
[2024-11-23 08:45] LABS: % Basophils 0.7 % (0-2); % Eosinophils 4.3 % (0-6); % Immature Granulocytes 0.5 % (0-0.5); % Lymphocytes 15.4 % (20.5-51.1); % Neutrophils 70.1 % (42.2-75.2); Absolute Eosinophils 0.3 10^3/uL (0-0.7); Absolute Lymphocytes 0.9 10^3/uL (1.2-3.4); Absolute Monocytes 0.5 10^3/uL (0.1-0.6); Absolute Neutrophils 4.1 10^3/uL (1.4-6.5); Hematocrit 37.3 % (39.0-52.0); Hemoglobin 12.3 g/dL (13.0-18.0); Mean Corpuscular Hgb 30.2 pg (27.0-31.0); Mean Corpuscular Volume 91.6 fL (80.0-94.0); Mean Platelet Volume 9.2 fL (7.4-10.4); Nucleated Red Blood Cells % 0 % (-); Platelet Count 177 10^3/uL (130-400); Red Blood Cell Count 4.07 10^6/uL (4.70-6.10); Red Cell Dist. Width 13.2 % (11.5-14.5); White Blood Cell Count 5.8 10^3/uL (4.8-10.8)
[2024-11-23 09:12] LABS: Albumin 3.4 g/dl (3.5-5.0); Blood Urea Nitrogen 32 mg/dl (9-20); Calcium 8.7 mg/dl (8.4-10.2); Carbon Dioxide 30 mmol/L (22-30); Chloride 107 mmol/L (98-107); Glucose 149 mg/dl (70-99); Phosphorus 3.2 mg/dl (2.5-4.5); Potassium 4.4 mmol/L (3.5-5.1); Sodium 144 mmol/L (135-145); eGFR 34.35
[2024-11-25 12:14] LABS: Intact PTH 159.4 pg/ml (13.6-85.8)
== END ==
LOC: REG 06:47
PROVIDERS: ATTENDING PHYSICIAN Specialist; FAMILY PHYSICIAN Internal Medicine
DX: I10 Essential (primary) hypertension (principal); I13.0 Hypertensive heart and chronic kidney disease with heart failure and stage 1 through stage 4 chronic kidney disease, or unspecified chronic kidney disease; Z90.5 Acquired absence of kidney
CPT/HCPCS: 36415; 80069; 83970; 85025

== ENCOUNTER 2025-04-14 13:52 | Inpatient (IN) | payer MEDICARE, OTHER, SELFPAY ==
[2025-04-14] VITALS (10 sets, daily range): BP systolic 133–167; BP diastolic 65–78; BMI 41.9
[2025-04-14 04:41] LABS: Hematocrit 36.1 % (39.0-52.0); Hemoglobin 11.9 g/dL (13.0-18.0); Mean Corp Hgb Conc. 33.0 g/dL (33.0-37.0); Mean Corpuscular Volume 91.2 fL (80.0-94.0); Nucleated Red Blood Cells % 0 % (-); Platelet Count 168 10^3/uL (130-400); Red Cell Dist. Width 13.6 % (11.5-14.5)
[2025-04-14 05:07] LABS: ALT (SGPT) 14 U/L (0-50); AST (SGOT) 17 U/L (17-59); Albumin 3.5 g/dl (3.5-5.0); Alkaline Phosphatase 120 U/L (38-126); Blood Urea Nitrogen 27 mg/dl (9-20); Calcium 8.6 mg/dl (8.4-10.2); Carbon Dioxide 28 mmol/L (22-30); Chloride 108 mmol/L (98-107); Glucose 130 mg/dl (70-99); Potassium 3.9 mmol/L (3.5-5.1); Sodium 141 mmol/L (135-145); Total Protein 6.5 g/dl (6.3-8.2); eGFR 42.22
[2025-04-14] MEDS: BENADRYL 50 MG IV (07:15)
[2025-04-14] MEDS: SOLU-CORTEF 200 MG IV (07:15)
--- NOTE | 2025-04-14 09:02 | ED.GENMED ---
History of Present Illness
<JÚNIOR Patino Jr. Last Filed: 04/14/25 11:11>
General
Chief Complaint: Gait Dysfunction
Source: patient and spouse
Exam Limitations: none
Time Seen by Provider: 04/14/25 06:06
Nursing documentation reviewed up to this point in time: agreed with
History of Present Illness
History of Present Illness:
84-year-old male with past medical history of A-fib currently on Xarelto, CAD, CHF, COPD, asthma presenting to the emergency department today with multiple concerns. He claims over the past week and a half he has noted some discomfort to the right
side of the abdomen and thinks there may be a lump there also claims he does have difficulty walking has felt dizzy health has felt very weak is also has some trouble speaking. Denies any new medications or any new changes that he can associate
with this.
Past History
<JÚNIOR Patino Jr. Last Filed: 04/14/25 11:11>
Past History
ED Past Medical History: Arrthythmia (Atrial fib), Asthma, CAD, Cancer (renal cell carcinoma on the right), CHF, COPD, HTN, Hypercholesterolemia, NIDDM, SD, Other (Patton's esophagitis, rectal bleeding) and Other (obstructive Sleep apnea,
pneumonia, edema, diverticulitis, stomach ulcers, arthritis, PNA); Negative Renal failure (stage III a)
ED Past Surgical History: Cardiac (PTCA, cardioversion 2019), Tonsilectomy, Urological (right nephrectomy secondary to renal cell carcinoma) and Other (rectal Fistula surgery)
Social History
Tobacco: Non-smoker
Alcohol: None
Drug: None
Personal:
Living: with family
Employment: Retired
Family History
Family History: Other
Review of Systems
<JÚNIOR Patino Jr. Last Filed: 04/14/25 11:11>
Review of Systems
Allergies reviewed?: Yes
All Other Systems: ROS reviewed and negative except as documented in HPI and ROS
Phy Exam
<Humberto Solano Jr., PA-C - Last Filed: 04/14/25 11:11>
Physical Exam
Physical Exam:
GENERAL: Alert , in no apparent distress
EYE: pupils equal and reactive
NECK: Supple, no significant adenopathy.
ENT: o/p clr, mmm.
CARDIAC: Regular rate and rhythm .
LUNGS: Clear breath sounds bilaterally, no acute respiratory distress, no wheezes/rales/rhonchi
ABDOMEN: Bloating tender to palpation to the right lower abdomen with guarding remainder of the abdomen is soft.
NEUROLOGICAL: Alert and oriented, no focal neuro deficits
SKIN: Warm and dry, skin intact.
MUSCULOSKELETAL: No edema, well perfused.
PSYCH: Normal and appropriate interaction.
Course
<Humberto Solano Jr., PA-C - Last Filed: 04/14/25 11:11>
Orders/Labs/Results
Orders:
Orders
04/14/25 04:26
CMP [Comprehensive Metabolic Panel] Urgent
Complete Blood Count/With Diff Urgent
04/14/25 06:45
EKG [Electrocardiogram (*1)] Urgent
Reason for Study: Abdominal Pain
CT Abd/pelvis W Iv Cont Urgent
Comment:
Reason For Exam: rlq pain
CT Head W/o Iv Contrast Urgent
Comment:
Reason For Exam: gait issues, left visual field loss
EKG- Treatment ONCE
Chest [CR Chest - 2 Views ] Urgent
Comment:
Reason For Exam: sob
04/14/25 06:50
Diphenhydramine [Benadryl] 50 mg IV NOW STA
Hydrocortisone Sod Succinate [Solu-Cortef] 200 mg IV NOW STA
04/14/25 07:05
BNP [NT-proBNP] Urgent
04/14/25 09:59
Urinalysis Reflex To Culture Urgent
Date Specimen was Collected: 04/14/25
Time Specimen was Collected: 09:52
Urine Microscopic Reflex Cult Urgent
04/14/25 10:39
Dexamethasone Sod Phosphate [Decadron] 20 mg .ROUTE .STK-MED ONE
Fentanyl Citrate/Pf [Sublimaze] 100 mcg .ROUTE .STK-MED ONE
Lidocaine HCl/Pf [Xylocaine-Mpf 1% Vial] 50 mg .ROUTE .STK-MED ONE
Ondansetron Injectable [Zofran] 4 mg .ROUTE .STK-MED ONE
Propofol [Diprivan] 20 ml .ROUTE .STK-MED
Rocuronium Cowgill [Rocuronium] 50 mg .ROUTE .STK-MED ONE
Sugammadex Sodium [Bridion] 200 mg .ROUTE .STK-MED ONE
04/14/25 10:59
CefTRIAXone [Rocephin] 1,000 mg IV NOW STA
MetroNIDAZOLE 500 MG/100 ML [Flagyl 500 mg] 100 ml IV NOW
Abnormal Lab Results
04/14/25 04/14/25
04:26 09:59
RBC 3.96 L 10^6/uL
(4.70-6.10)
Hgb 11.9 L g/dL
(13.0-18.0)
Hct 36.1 L %
(39.0-52.0)
Abs Immat Gran (auto) 0.1 H 10^3/uL
(0-0.05)
Absolute Neuts (auto) 7.1 H 10^3/uL
(1.4-6.5)
Absolute Lymphs (auto) 0.8 L 10^3/uL
(1.2-3.4)
Absolute Monos (auto) 0.7 H 10^3/uL
(0.1-0.6)
Immature Gran % 0.6 H %
(0-0.5)
Neutrophils % 79.3 H %
(42.2-75.2)
Lymphocytes % 8.8 L %
(20.5-51.1)
Chloride 108 H mmol/L
(98-107)
BUN 27 H mg/dl
(9-20)
Creatinine 1.6 H mg/dL
(0.7-1.3)
Glucose 130 H mg/dl
(70-99)
Ur Occult Blood Reflex 2+ A
(Negative)
Urine RBC 3-6 A /HPF
(0-2)
Urine Albumin (Reflex) 2+ A
(Neg - Trace)
04/14/25 04:26
04/14/25 04:26
Vital Signs
Initial and Last Documented VS:
Initial Vital Signs
Temp Pulse Resp BP Pulse Ox
97.9 F 68 24 154/70 96
04/14/25 04:09 04/14/25 04:09 04/14/25 04:09 04/14/25 04:09 04/14/25 04:09
Last Documented Vital Signs
Temp Pulse Resp BP Pulse Ox
97.9 F 64 16 167/76 94
04/14/25 04:09 04/14/25 10:00 04/14/25 10:00 04/14/25 10:00 04/14/25 10:15
<Jayme Leigh MD - Last Filed: 04/14/25 11:00>
Orders/Labs/Results
Orders:
Orders
04/14/25 04:26
CMP [Comprehensive Metabolic Panel] Urgent
Complete Blood Count/With Diff Urgent
04/14/25 06:45
EKG [Electrocardiogram (*1)] Urgent
Reason for Study: Abdominal Pain
CT Abd/pelvis W Iv Cont Urgent
Comment:
Reason For Exam: rlq pain
CT Head W/o Iv Contrast Urgent
Comment:
Reason For Exam: gait issues, left visual field loss
EKG- Treatment ONCE
Chest [CR Chest - 2 Views ] Urgent
Comment:
Reason For Exam: sob
04/14/25 06:50
Diphenhydramine [Benadryl] 50 mg IV NOW STA
Hydrocortisone Sod Succinate [Solu-Cortef] 200 mg IV NOW STA
04/14/25 07:05
BNP [NT-proBNP] Urgent
04/14/25 09:59
Urinalysis Reflex To Culture Urgent
Date Specimen was Collected: 04/14/25
Time Specimen was Collected: 09:52
Urine Microscopic Reflex Cult Urgent
04/14/25 10:39
Dexamethasone Sod Phosphate [Decadron] 20 mg .ROUTE .STK-MED ONE
Fentanyl Citrate/Pf [Sublimaze] 100 mcg .ROUTE .STK-MED ONE
Lidocaine HCl/Pf [Xylocaine-Mpf 1% Vial] 50 mg .ROUTE .STK-MED ONE
Ondansetron Injectable [Zofran] 4 mg .ROUTE .STK-MED ONE
Propofol [Diprivan] 20 ml .ROUTE .STK-MED
Rocuronium Cowgill [Rocuronium] 50 mg .ROUTE .STK-MED ONE
Sugammadex Sodium [Bridion] 200 mg .ROUTE .STK-MED ONE
04/14/25 10:59
CefTRIAXone [Rocephin] 1,000 mg IV NOW STA
MetroNIDAZOLE 500 MG/100 ML [Flagyl 500 mg] 100 ml IV NOW
Abnormal Lab Results
04/14/25 04/14/25
04:26 09:59
RBC 3.96 L 10^6/uL
(4.70-6.10)
Hgb 11.9 L g/dL
(13.0-18.0)
Hct 36.1 L %
(39.0-52.0)
Abs Immat Gran (auto) 0.1 H 10^3/uL
(0-0.05)
Absolute Neuts (auto) 7.1 H 10^3/uL
(1.4-6.5)
Absolute Lymphs (auto) 0.8 L 10^3/uL
(1.2-3.4)
Absolute Monos (auto) 0.7 H 10^3/uL
(0.1-0.6)
Immature Gran % 0.6 H %
(0-0.5)
Neutrophils % 79.3 H %
(42.2-75.2)
Lymphocytes % 8.8 L %
(20.5-51.1)
Chloride 108 H mmol/L
(98-107)
BUN 27 H mg/dl
(9-20)
Creatinine 1.6 H mg/dL
(0.7-1.3)
Glucose 130 H mg/dl
(70-99)
Ur Occult Blood Reflex 2+ A
(Negative)
Urine RBC 3-6 A /HPF
(0-2)
Urine Albumin (Reflex) 2+ A
(Neg - Trace)
04/14/25 04:26
04/14/25 04:26
Vital Signs
Initial and Last Documented VS:
Initial Vital Signs
Temp Pulse Resp BP Pulse Ox
97.9 F 68 24 154/70 96
04/14/25 04:09 04/14/25 04:09 04/14/25 04:09 04/14/25 04:09 04/14/25 04:09
Last Documented Vital Signs
Temp Pulse Resp BP Pulse Ox
97.9 F 64 16 167/76 94
04/14/25 04:09 04/14/25 10:00 04/14/25 10:00 04/14/25 10:00 04/14/25 10:15
<Humberto Solano Jr., PA-C - Last Filed: 04/14/25 11:11>
MDM/Problems Addressed
MDM/Problems Addressed:
84-year-old male presenting to the emergency department today with concerns of right sided lower abdominal pain as well as trouble walking trouble with balance weakness trouble speaking over the past week and a half. On arrival blood pressure
elevated otherwise vital signs are normal. Labs showing baseline creatinine level consistent with CKD. Other labs unremarkable EKG without emergent findings. No significant change from previous.
CT head negative. CT abdomen pelvis showing acute appendicitis without complication. Case was then immediately discussed with general surgery. He believes that his last dose of Xarelto was 2 days ago but was not entirely sure. His went home
to check his pillbox to see if this was correct or not. Otherwise stable in the ER here.
<Humberto Solano Jr., PA-C - Last Filed: 04/14/25 11:11>
*Pulse Oximetry
SaO2: 93
Oxygen Mode of Delivery: Room air
Patient hypoxic: no (94)
*Critical Care Note
Total Time (30-74mins, 75-104mins- exclusive of procedures): Not Applicable
ED Attending Note
<Humberto Solano Jr., PA-C - Last Filed: 04/14/25 11:11>
-
Portions of this chart may have been created with voice recognition software.� Occasional wrong word or��sound alike� substitutions may have occurred due to the inherent limitations of voice recognition software.
<Jayme Leigh MD - Last Filed: 04/14/25 11:00>
ED Attending Note
Patient seen and examined by attending physician: Yes
ED Attending Note:
I have seen and evaluated the patient with a [id number] encounter. I have spoken to the advance practicer provider and involved in the medical history, the physical exam, medical decision making.
Evaluation and management service: agree unless noted differently below.
Results interpretation: agree unless noted differently below.
Focused HPI: 84-year-old male with history as noted presents for evaluation of abdominal pain and right hip pain for the past 7 to 10 days. Has also had some balance issues he attributes to right hip pain.
Physical exam: Awake and alert not in distress. Hypertensive but otherwise acceptable vitals. Abdomen markedly tender in the right lower quadrant with voluntary guarding.
Medical Decision Makin-year-old male presents with abdominal and hip pain as above. Vitals and exam as above. Labs were sent off which showed stable CKD. Urinalysis bland. CT abdomen shows signs consistent with acute appendicitis. Case
discussed with general surgery and hospitalist. Will start IV antibiotics.
Discharge Plan
Departure
Patient Disposition: Admit
Date of Disposition: 04/14/25
Time of Disposition: 11:10
Admit to: Med/Surg
Admit to doctor: Haley
Presentation/result/management discussed w/ accepting MD/DO: Hospitalist
Patient with high blood pressure during this ER visit?: No
Condition: Good
Covid-19: Not Applicable
Discharge Problem:
Acute appendicitis
Prescriptions:
No Action
atorvastatin 40 MG tablet
40 mg PO QPM
Xarelto 20 MG tablet
20 mg PO QPM
mesalamine [Apriso] 0.375 GM capsule,extended release 24hr
0.375 g PO DAILY
pantoprazole 40 MG tablet,delayed release (DR/EC)
40 mg PO DAILY
potassium chloride 10 MEQ tablet,ER particles/crystals
10 meq PO DAILY
dofetilide 250 MCG capsule
250 mcg PO BID
Patient Comments:
04/28/2024: Taken w/ 125mcg= 375mcg
dofetilide 125 MCG capsule
125 mcg PO BID
Patient Comments:
04/28/2024: Taken w/ 250mcg= 375mcg
furosemide 40 mg tablet
40 mg PO DAILY
carvedilol 6.25 mg tablet
6.25 mg PO BID
glipizide 5 mg Tablet
5 mg PO DAILY
Tradjenta 5 mg Tablet
5 mg PO DAILY
amlodipine 5 mg tablet
5 mg PO DAILY
cyanocobalamin (vitamin B-12) 1,000 mcg Tablet
1,000 mcg PO DAILY
coQ10 (ubiquinol) 100 mg Capsule
100 mg PO DAILY
lisinopril 5 mg tablet
5 mg PO QPM
fluticasone furoate-vilanterol [Breo Ellipta] 100-25 mcg/dose blister with device
1 inh INHALATION R DAILY
albuterol sulfate 90 mcg/actuation HFA aerosol inhaler
2 puff inhalation R Q6HPRN PRN (Reason: shortness of breath or wheezing)
polyethylene glycol 3350 [HealthyLax] 17 gram Powder In Packet
17 g PO DAILY 14 Days Qty: 14 0RF
tramadol 50 mg Tablet
100 mg PO Q6HPRN PRN (Reason: moderate pain) Qty: 14 0RF
Referrals:
Macy Spring DO [Family Provider, Internal Medicine]
Interventions
Interventions:
*Risk Screen - Suicide Last Done: 04/14/25 04:09
*General Assessment Last Done: 04/14/25 06:27
*Neglect/Abuse Screening Last Done: 04/14/25 04:09
*ED- Fall Risk Assessment Last Done: 04/14/25 06:27
*ED COVID-19 Vaccine History Last Done: 04/14/25 06:27
ED- Pulmonary Assessment Last Done: 04/14/25 07:47
ED- Neurological Assessment Last Done: 04/14/25 07:47
ED-Musculoskeletal Assessment Last Done: 04/14/25 07:47
ED- Cardiac Assessment Last Done: 04/14/25 07:47
Discharge Date and Time
Print Language: DUTCH
[2025-04-14 10:26] LABS: Urine Character Clear (Clear)
[2025-04-14 11:00] LABS: Urine White Cell 0-2 /HPF (0-5)
--- NOTE | 2025-04-14 11:10 | HPS.HSE ---
Family Physician
-
Family Physician: Macy Spring
Chief Complaint
-
Abdominal Pain
History of Present Illness
84 y/o male with past medical history of CAD, HFrEF, atrial fibrillation on Xarelto (last dose on 04/13/25 evening), hypertension, type 2 diabetes mellitus, hyperlipidemia, CKD 3, COPD, Patton's esophagitis and stomach ulcers, rectal bleeding,
renal cell carcinoma status post right nephrectomy, HEMANTH, diverticulitis, arthritis and pneumonia, presented with abdominal pain. He also had lower back pain mostly on the right that began 2 weeks ago after lifting heavy items at his home, over the
past day it became more severe and migrated to his right lower quadrant. He has been eating and drinking okay, and denied any nausea or vomiting.
Medical History
Past Medical History
Past Medical History: Reports Other (As per HPI above)
Past Surgical History: Reports Other (Cardiac (PTCA, cardioversion 2019), Tonsillectomy, Urological (right nephrectomy secondary to renal cell carcinoma) and Other (Rectal Fistula Surgery) ))
Social History
Tobacco: Non-smoker
Alcohol: None
Drug: None
Family History
Family History: Not pertinent
Allergies / Home Medications
Allergies reflects when Allergies were last updated in [employer].
Home Medications with original date entered in [employer]
Allergy/Medication List:
Allergies
Allergy/AdvReac Type Severity Reaction Status Date / Time
grass pollen Allergy Itching Verified 04/14/25 04:12
Iodinated Contrast Media Allergy 'happened Verified 04/14/25 04:12
(Iodinated Contrast- Oral long ago'
and IV Dye)
Penicillins Allergy 'happened Verified 04/14/25 04:12
at least
50 years
ago'
tree and shrub pollen Allergy Itching Verified 04/14/25 04:12
Home Medications
atorvastatin 40 mg tablet 40 mg PO QPM High cholesterol 08/16/14
rivaroxaban 20 mg tablet (Xarelto) 20 mg PO QPM Blood clot prevention/tx 04/16/18
mesalamine 0.375 gram capsule,extended release 24 hr (Apriso) 0.75 g PO DAILY Gastrointestinal issue 08/21/19
pantoprazole 40 mg tablet,delayed release 40 mg PO DAILY Gastrointestinal issue 12/10/19
potassium chloride 10 mEq tablet,extended release(part/cryst) 10 meq PO DAILY ELECTROLYTE REPLETION 01/06/20
dofetilide 250 mcg capsule 250 mcg PO BID Arrhythmia 09/29/21
dofetilide 125 mcg capsule 125 mcg PO BID Arrhythmia 11/27/21
carvedilol 6.25 mg tablet 6.25 mg PO BID Heart Failure 02/13/22
furosemide 40 mg tablet 40 mg PO DAILY Fluid retention/Swelling 02/13/22
amlodipine 5 mg tablet 5 mg PO DAILY Blood Pressure 10/09/23
coQ10 (ubiquinol) 100 mg capsule 100 mg PO DAILY Supplement 10/09/23
cyanocobalamin (vitamin B-12) 1,000 mcg tablet 1,000 mcg PO DAILY Supplement 10/09/23
glipizide 5 mg tablet 5 mg PO DAILY diabetes 10/09/23
linagliptin 5 mg tablet (Tradjenta) 5 mg PO DAILY diabetes 10/09/23
albuterol sulfate 90 mcg/actuation aerosol inhaler 2 puff inhalation R Q6HPRN PRN shortness of breath or wheezing 04/28/24
fluticasone furoate 100 mcg-vilanterol 25 mcg/dose inhalation powder (Breo Ellipta) 1 inh inhalation R DAILY Lung/Breathing Issues 04/28/24
Review of Systems
-
A 12 point ROS was completed and negative except as noted: Yes
Physical Exam
Vital Signs
Vital Signs
Temp Pulse Resp BP Pulse Ox
97.9 F 64 16 167/76 94
04/14/25 04:09 04/14/25 10:00 04/14/25 10:00 04/14/25 10:00 04/14/25 10:15
Physical Exam
General: No Apparent Distress, Comfortable and Conversant
HEENT: NormoCephalic and Moist mucous membranes
Respiratory: Clear
Cardiac: S1/S2 and Regular Rhythm
GI: Soft, Normal Bowel Sounds and Tender (at the RLQ)
Musculoskeletal: No Cyanosis and No Edema
Skin: Warm and Dry
Neuro: Awake, Alert, AO x 3 and Nonfocal/grossly intact
Psych: Calm and Intact Judgment/Insight
Laboratory Results
-
04/14/25 04:26
04/14/25 04:26
Laboratory Results
Total Bilirubin 0.9 mg/dl (0.2-1.3) 04/14/25 04:26
AST 17 U/L (17-59) 04/14/25 04:26
ALT 14 U/L (0-50) 04/14/25 04:26
Alkaline Phosphatase 120 U/L (38-126) 04/14/25 04:26
Impression/Plan
-
Assessment/Plan
#Presentation with abdominal pain
#Acute Appendicitis
-Continue Rocephin and Flagyl
-Clear liquids diet
-NPO after midnight for possible laparoscopic appendectomy
-Surgery onboard, surgery requested cardiac risk stratification given significant cardiac comorbidities, therefore cardiology consulted
-Hold Xarelto
#Chronic HFrEF, history of improved EF
-Continue Furosemide
-Strict DIANDRA, daily weight
#Paroxysmal atrial fibrillation
-Continue Coreg
-Continue Tikosyn
-Hold Xarelto given tentative surgery tomorrow (patient's last dose of Xarelto was on 04/13/25 evening)
#Type 2 Diabetes Mellitus
-Hold home PO meds
-Accuchecks and Sliding Scale Insulin if needed
-On clear liquids diet for now given appendicitis
#CAD/ID
-Continue current anti-ischemic regimen
#Hypertension
-Continue Norvasc
#Hyperlipidemia
-Statin continued
#Chronic Kidney Disease Stage 3
-Cr 1.6, last value in the chart was 1.9
-Monitor BMP
#History of renal cell carcinoma status post prior right nephrectomy for cancer
#COPD
-Stable, continue PRN albuterol
#History of Patton's esophagitis and stomach ulcers?
#History of Rectal bleeding?
-Continue home Pantoprazole
-Monitor for any rectal bleeding
-Patient takes Mesalamine at home for presumed IBD? I spoke with on-call GI, and okay to hold Mesalamine -- doesn't make a big difference
#HEMANTH
-Continue CPAP
#Diverticulitis
#Arthritis
#History of pneumonia
#Acute low back pain
#Ambulatory dysfunction due to back pain
DVT Prophylaxis: Heparin subq
Code Status: Full Code
--- NOTE | 2025-04-14 11:19 | CON.GS ---
Consultation
-
Date/Time Consultation Performed: 04/14/25
Requesting Provider: Russ
Performing Provider: Cuca
Reason for Consultation: Acute appendicitis
Medical History
-
Chief Complaint: Abd pain
History of Present Illness:
84M with acute onset lower back pain mostly on the right that began 2 weeks ago after helping a face painter lift heavy items at his home, over the past day it became more severe and migrated to his RLQ. Denies n/v, appettite OK, denies f/c. On xarelto
for afib, last dose last night. s/p right nephrectomy for cancer.
Past Medical History
Past Medical History: Other (Arrthythmia (A fib), Asthma, CAD, Cancer (renal cell carcinoma on the right), CHF, COPD, HTN, Hypercholesterolemia, NIDDM, ME, Patton's esophagitis, rectal bleeding obstructive Sleep apnea, pneumonia, edema,
diverticulitis, stomach ulcers, arthritis, PNA)
Past Surgical History: Other (Cardiac (PTCA, cardioversion 2019), Tonsilectomy, Urological (right nephrectomy secondary to renal cell carcinoma) and Other (rectal Fistula surgery) )
Social History
Tobacco: Non-Smoker
Alcohol: None
Drug: None
Personal:
Living: With Family
Family History
Family History: Reviewed & Noncontributory
Allergies / Home Medications
Allergy/AdvReac Type Severity Reaction Status Date / Time
grass pollen Allergy Itching Verified 04/14/25 04:12
Iodinated Contrast Media Allergy 'happened Verified 04/14/25 04:12
(Iodinated Contrast- Oral long ago'
and IV Dye)
Penicillins Allergy 'happened Verified 04/14/25 04:12
at least
50 years
ago'
tree and shrub pollen Allergy Itching Verified 04/14/25 04:12
�Medication �Instructions �Recorded �Confirmed �Type
atorvastatin 40 mg tablet 40 mg PO QPM High cholesterol 08/16/14 04/28/24 History
rivaroxaban 20 mg tablet (Xarelto) 20 mg PO QPM Blood clot 04/16/18 04/28/24 History
prevention/tx
mesalamine 0.375 gram 0.375 g PO DAILY Gastrointestinal 08/21/19 04/28/24 History
capsule,extended release 24 hr issue
(Apriso)
pantoprazole 40 mg tablet,delayed 40 mg PO DAILY Gastrointestinal 12/10/19 04/28/24 History
release issue
potassium chloride 10 mEq 10 meq PO DAILY ELECTROLYTE 01/06/20 04/28/24 History
tablet,extended release(part/cryst) REPLETION
dofetilide 250 mcg capsule 250 mcg PO BID Arrhythmia 09/29/21 04/28/24 History
dofetilide 125 mcg capsule 125 mcg PO BID Arrhythmia 11/27/21 04/28/24 History
carvedilol 6.25 mg tablet 6.25 mg PO BID Heart Failure 02/13/22 04/28/24 History
furosemide 40 mg tablet 40 mg PO DAILY Fluid 02/13/22 04/28/24 History
retention/Swelling
amlodipine 5 mg tablet 5 mg PO DAILY Blood Pressure 10/09/23 04/28/24 History
coQ10 (ubiquinol) 100 mg capsule 100 mg PO DAILY Supplement 10/09/23 04/28/24 History
cyanocobalamin (vitamin B-12) 1,000 mcg PO DAILY Supplement 10/09/23 04/28/24 History
1,000 mcg tablet
glipizide 5 mg tablet 5 mg PO DAILY diabetes 10/09/23 04/28/24 History
linagliptin 5 mg tablet (Tradjenta) 5 mg PO DAILY diabetes 10/09/23 04/28/24 History
albuterol sulfate 90 mcg/actuation 2 puff inhalation R Q6HPRN PRN 04/28/24 04/28/24 History
aerosol inhaler shortness of breath or wheezing
fluticasone furoate 100 1 inh inhalation R DAILY 04/28/24 04/28/24 History
mcg-vilanterol 25 mcg/dose Lung/Breathing Issues
inhalation powder (Breo Ellipta)
lisinopril 5 mg tablet 5 mg PO QPM Blood Pressure 04/28/24 04/28/24 History
polyethylene glycol 3350 17 gram 17 g PO DAILY 14 days #14 ea 04/30/24 Rx
oral powder packet (HealthyLax)
tramadol 50 mg tablet 100 mg (2 x 50 mg) PO Q6HPRN PRN 04/30/24 Rx
moderate pain #14 tabs
Review of Systems
-
A 10 point review of systems was completed, and was negative except as per HPI.
Physical Exam
Vital Signs
Temp Pulse Resp BP Pulse Ox
97.9 F 64 16 167/76 94
04/14/25 04:09 04/14/25 10:00 04/14/25 10:00 04/14/25 10:00 04/14/25 10:15
04/13/25 04/14/25 04/15/25
06:59 06:59 06:59
Actual Weight 120.6 kg
Lab Results
04/14/25 04:26
04/14/25 04:26
WBC 9.0 10^3/uL (4.8-10.8) 04/14/25 04:26
Hgb 11.9 g/dL (13.0-18.0) L 04/14/25 04:26
Hct 36.1 % (39.0-52.0) L 04/14/25 04:26
Plt Count 168 10^3/uL (130-400) 04/14/25 04:26
Abs Immat Gran (auto) 0.1 10^3/uL (0-0.05) H 04/14/25 04:26
Neutrophils % 79.3 % (42.2-75.2) H 04/14/25 04:26
Physical Exam
General: Well Developed, Well Nourished and No Apparent Distress
GI: Soft, Non Distended, Tender (ttp to rlq with guarding) and Obese
Skin: Warm and Dry
Neuro: AO x 3
Psych: Calm
Data Reviewed
-
CT Scan: Image Personally Visualized and interpreted, Report Reviewed by me and Discussed with Patient
Labs: Labs Reviewed by me and Discussed with Patient
Assessment / Plan
-
84M with acute appendicitis
AFVSS, ttp to rlq on exam with guarding
No leukocytosis, left shift noted
CKD noted, Cr appears to be at baseline, single kidney (left)
CT with inflamed appendix without fecalith, terminal ileum in lateral position
Took xarelto last night
Plan:
Admit to Hospitalist
IV abx
Hold xarelto
OK for [facility], NPO @ [facility]
Tentatively for OR tomorrow for lap appy
Will follow
[2025-04-14] MEDS: FLAGYL 500 MG 100 IV ×2 (11:25→20:14)
[2025-04-14] MEDS: ROCEPHIN 1000 MG IV ×2 (11:26→13:55)
--- NOTE | 2025-04-14 14:51 | CON.CAR ---
Addendum entered and electronically signed by García Adam MD 04/14/25 17:24:
patient seen and examined
agree with JÚNIOR Aguirre's notes and assessment
agree with JÚNIOR Aguirre's plan
no chest pain/pressure, sob, robertson, sr
exam:
aao x 3
non focal neurologically
jvp 6
cor regular no m
lungs diminished but clear (due to abdominal pain some splinting
abd tender rlq
no ext edema
Impression:
Admitted with acute appendicitis 04/14/2025
Chronic HFrEF
CKD
Paroxysmal Afib
Chronic dofetilide therapy
Chronic Xarelto OAC
Amiodarone intolerance
Improved cardiomyopathy, EF 15% by RENETTA pre-PVI 02/03/15, then improved to 50-55% by Echo 2017, then reduced again to 35-40% by echo 05/17/20
Zenker diverticulum
CAD s/p SD and POBA of RPDA 06/2014
LBBB
Chronic asthma with a history of inhaler noncompliance
HEMANTH on CPAP
Obese, BMI 44
Hypertension
Hyperlipidemia
GERD
DM 2
Renal cell carcinoma s/p R nephrectomy 11/2020
Echo 08/16/14: EF 40-45%
RENETTA 02/03/15: EF 15% with severe global hypokinesis, mild to moderate MR, dilated left atrial appendage without thrombus
Echo 05/04/15: EF 60%, moderate concentric LVH, no significant valvular disease
Echo 12/30/19: EF 30-35%, global hypokinesis, moderate concentric LVH, mild MR, technically difficult study and recommend to repeat with Definity
Echo 05/17/20: EF 35-40%, global hypokinesis, mild concentric LVH, trace MR, aortic sclerosis without stenosis
Echo 02/14/22: EF 35-40%, global hypokinesis, mild MR, enlarged RV size with normal Rv systolic function
Echo 10/05/2024: EF 35 to 40%, global hypokinesis, no MR
Plan:
-Patient came to the hospital today with right-sided abdominal discomfort and is admitted with acute appendicitis and cardiology has been consulted for preoperative cardiovascular risk stratification. Patient was seen by the surgery team and they
reviewed the CT scan that showed an inflamed appendix. Patient is currently on IV antibiotics and says his pain has improved. Patient has paroxysmal A-fib and is chronically on Tikosyn, currently in SR. He took his usual dose of Xarelto last
night. He denies any recent chest pain or SOB. He has a history of SD with POBA of the PDA back in 2013. He had an echo in September that showed EF 35 to 40% which is stable for him going back to at least 2019.
-ECG reviewed by me is SR with chronic LBBB and QTc 497 ms
-Patient denies any unstable angina or heart failure symptoms. He is at elevated but not prohibitive cardiovascular risk. Recommend avoiding QT prolonging medications aside from his typical Tikosyn. Recommend perioperative telemetry monitoring.
-Patient took his usual dose of Xarelto on 04/13/2025 PM, but can interrupt therapy for surgery and then resume when safe from a surgical standpoint postoperatively.
-Currently in SR and would continue with his usual dose of Tikosyn 375 mcg BID. Check ECG postop. QTc was stable today at 497 ms
-EF 35 to 40% by echo in September and he does not examine in acute HF. Outpatient dose of Lasix 40 mg PO daily has been continued for now, if Lasix is held recommend checking weight on a daily basis.
-GDMT includes Coreg 6.25 mg BID and dose has been continued.
-Lisinopril was stopped in the past due to SERAFIN with previous nephrectomy
-reasonable to maintain telemetry for 24-48hrs post procedure, will follow with you
Original Note:
Consultation
Consultation Request
Date/Time Consultation Requested: 04/14/2025
Date/Time Consultation Performed: 04/14/2025
Requesting Provider: Dr. Yao
Performing Provider: Dr. Adam
Reason for Consultation: Preoperative cardiovascular risk stratification as requested by surgeon
Medical History
-
History of Present Illness:
Patient came to the hospital today with right-sided abdominal discomfort and is admitted with acute appendicitis and cardiology has been consulted for preoperative cardiovascular risk stratification. Patient was seen by the surgery team and they
reviewed the CT scan that showed an inflamed appendix. Patient is currently on IV antibiotics and says his pain has improved. Patient has paroxysmal A-fib and is chronically on Tikosyn, currently in SR. He took his usual dose of Xarelto last
night. He denies any recent chest pain or SOB. He has a history of SD with POBA of the PDA back in 2013. He had an echo in September that showed EF 35 to 40% which is stable for him going back to at least 2019.
PMH:
Chronic HFrEF
CKD
Paroxysmal Afib
Chronic dofetilide therapy
Chronic Xarelto OAC
Amiodarone intolerance
Improved cardiomyopathy, EF 15% by RENETTA pre-PVI 02/03/15, then improved to 50-55% by Echo 2017, then reduced again to 35-40% by echo 05/17/20
Zenker diverticulum
CAD s/p SD and POBA of RPDA 06/2014
LBBB
Chronic asthma with a history of inhaler noncompliance
HEMANTH on CPAP
Obese, BMI 44
Hypertension
Hyperlipidemia
GERD
DM 2
Renal cell carcinoma s/p R nephrectomy 11/2020
Past Medical History
Past Medical History: Other (See HPI)
Past Surgical History: Other (Right nephrectomy)
Social History
Tobacco: Non-Smoker
Alcohol: None
Drug: None
Living: With Family
Family History
Family History: CAD (CHF)
Allergies / Home Medications
Allergy/AdvReac Type Severity Reaction Status Date / Time
grass pollen Allergy Itching Verified 04/14/25 04:12
Iodinated Contrast Media Allergy 'happened Verified 04/14/25 04:12
(Iodinated Contrast- Oral long ago'
and IV Dye)
Penicillins Allergy 'happened Verified 04/14/25 04:12
at least
50 years
ago'
tree and shrub pollen Allergy Itching Verified 04/14/25 04:12
�Medication �Instructions �Recorded �Confirmed �Type
atorvastatin 40 mg tablet 40 mg PO QPM High cholesterol 08/16/14 04/14/25 History
rivaroxaban 20 mg tablet (Xarelto) 20 mg PO QPM Blood clot 04/16/18 04/14/25 History
prevention/tx
mesalamine 0.375 gram 0.75 g PO DAILY Gastrointestinal 08/21/19 04/14/25 History
capsule,extended release 24 hr issue
(Apriso)
pantoprazole 40 mg tablet,delayed 40 mg PO DAILY Gastrointestinal 12/10/19 04/14/25 History
release issue
potassium chloride 10 mEq 10 meq PO DAILY ELECTROLYTE 01/06/20 04/14/25 History
tablet,extended release(part/cryst) REPLETION
dofetilide 250 mcg capsule 250 mcg PO BID Arrhythmia 09/29/21 04/14/25 History
dofetilide 125 mcg capsule 125 mcg PO BID Arrhythmia 11/27/21 04/14/25 History
carvedilol 6.25 mg tablet 6.25 mg PO BID Heart Failure 02/13/22 04/14/25 History
furosemide 40 mg tablet 40 mg PO DAILY Fluid 02/13/22 04/14/25 History
retention/Swelling
amlodipine 5 mg tablet 5 mg PO DAILY Blood Pressure 10/09/23 04/14/25 History
coQ10 (ubiquinol) 100 mg capsule 100 mg PO DAILY Supplement 10/09/23 04/14/25 History
cyanocobalamin (vitamin B-12) 1,000 mcg PO DAILY Supplement 10/09/23 04/14/25 History
1,000 mcg tablet
glipizide 5 mg tablet 5 mg PO DAILY diabetes 10/09/23 04/14/25 History
linagliptin 5 mg tablet (Tradjenta) 5 mg PO DAILY diabetes 10/09/23 04/14/25 History
albuterol sulfate 90 mcg/actuation 2 puff inhalation R Q6HPRN PRN 04/28/24 04/14/25 History
aerosol inhaler shortness of breath or wheezing
fluticasone furoate 100 1 inh inhalation R DAILY 04/28/24 04/14/25 History
mcg-vilanterol 25 mcg/dose Lung/Breathing Issues
inhalation powder (Breo Ellipta)
Review of Systems
-
History Source: Patient
All other systems: Negative unless noted
Physical Exam
Vital Signs
Temp Pulse Resp BP Pulse Ox
97.9 F 64 16 167/76 94
04/14/25 04:09 04/14/25 10:00 04/14/25 10:00 04/14/25 10:00 04/14/25 10:15
GEN: Sleeping initially and then awakens easily and is in NAD, AAO x 3
HEENT:�MMM
LUNGS: RA. No expiratory wheeze
CV: SR on telemetry. Reg, no murmur
ABD: +BS, soft
EXT: +1 B/L LE edema.
NEURO: No focal neurologic deficits
Lab Results
04/14/25 04:26
04/14/25 04:26
Ftr-P-Qtvzetaqpcz Pept 434 pg/ml 04/14/25 07:05
Impression / Plan
-
PCP: Ekaterina Spring
Entry Manager: Dr. García Adam
Impression:
Admitted with acute appendicitis 04/14/2025
Chronic HFrEF
CKD
Paroxysmal Afib
Chronic dofetilide therapy
Chronic Xarelto OAC
Amiodarone intolerance
Improved cardiomyopathy, EF 15% by RENETTA pre-PVI 02/03/15, then improved to 50-55% by Echo 2017, then reduced again to 35-40% by echo 05/17/20
Zenker diverticulum
CAD s/p SD and POBA of RPDA 06/2014
LBBB
Chronic asthma with a history of inhaler noncompliance
HEMANTH on CPAP
Obese, BMI 44
Hypertension
Hyperlipidemia
GERD
DM 2
Renal cell carcinoma s/p R nephrectomy 11/2020
Echo 08/16/14: EF 40-45%
RENETTA 02/03/15: EF 15% with severe global hypokinesis, mild to moderate MR, dilated left atrial appendage without thrombus
Echo 05/04/15: EF 60%, moderate concentric LVH, no significant valvular disease
Echo 12/30/19: EF 30-35%, global hypokinesis, moderate concentric LVH, mild MR, technically difficult study and recommend to repeat with Definity
Echo 05/17/20: EF 35-40%, global hypokinesis, mild concentric LVH, trace MR, aortic sclerosis without stenosis
Echo 02/14/22: EF 35-40%, global hypokinesis, mild MR, enlarged RV size with normal Rv systolic function
Echo 10/05/2024: EF 35 to 40%, global hypokinesis, no MR
Plan:
-Patient came to the hospital today with right-sided abdominal discomfort and is admitted with acute appendicitis and cardiology has been consulted for preoperative cardiovascular risk stratification. Patient was seen by the surgery team and they
reviewed the CT scan that showed an inflamed appendix. Patient is currently on IV antibiotics and says his pain has improved. Patient has paroxysmal A-fib and is chronically on Tikosyn, currently in SR. He took his usual dose of Xarelto last
night. He denies any recent chest pain or SOB. He has a history of SD with POBA of the PDA back in 2013. He had an echo in September that showed EF 35 to 40% which is stable for him going back to at least 2019.
-ECG reviewed by me is SR with chronic LBBB and QTc 497 ms
-Patient denies any unstable angina or heart failure symptoms. He is at elevated but not prohibitive cardiovascular risk. Recommend avoiding QT prolonging medications aside from his typical Tikosyn. Recommend perioperative telemetry monitoring.
-Patient took his usual dose of Xarelto on 04/13/2025 PM, but can interrupt therapy for surgery and then resume when safe from a surgical standpoint postoperatively.
-Currently in SR and would continue with his usual dose of Tikosyn 375 mcg BID. Check ECG postop. QTc was stable today at 497 ms
-EF 35 to 40% by echo in September and he does not examine in acute HF. Outpatient dose of Lasix 40 mg PO daily has been continued for now, if Lasix is held recommend checking weight on a daily basis.
-GDMT includes Coreg 6.25 mg BID and dose has been continued.
-Lisinopril was stopped in the past due to SERAFIN with previous nephrectomy
[2025-04-14] MEDS: PROTONIX 40 MG PO (16:21)
[2025-04-14] MEDS: VITAMIN B-12 1000 MCG PO (16:21)
[2025-04-14] MEDS: COREG 6.25 MG PO (16:21)
[2025-04-14] MEDS: NORVASC 5 MG PO (16:22)
[2025-04-14] MEDS: TIKOSYN 125 MCG PO (16:22)
[2025-04-14] MEDS: NSS 1000 IV (16:22)
[2025-04-14] MEDS: LASIX 40 MG PO (16:22)
[2025-04-14] MEDS: LIPITOR 40 MG PO (17:10)
[2025-04-14] MEDS: TIKOSYN 250 MCG PO (17:11)
[2025-04-14 17:13] LABS: Glucose - Point of Care 132 mg/dl (70-99)
--- NOTE | 2025-04-14 17:24 | PTCARENOTE ---
1555 Pt arrived from ED. Pt able to ambulate to bed. Pt AAOX3. VSS. admission assessment complete. oriented to room and call garner. bed locked and in lowest position.
[2025-04-14] MEDS: SYMBICORT 160/4.5 MCG INHALER 2 PUFF INH (19:18)
[2025-04-14] MEDS: HEPARIN 5000 UNITS SC (20:12)
--- NOTE | 2025-04-14 21:12 | RESPNOTE ---
Pt refused CPAP at this time. Pt admitted they do not wear their own CPAP at all in almost 10 years. Pt does not want to wear our CPAP machine either. Pt has been educated on the benefits of CPAP and if they should change their mind to let us know
so we can bring in a CPAP and set it up for them. RN has been made aware.
[2025-04-14 21:45] LABS: Glucose - Point of Care 117 mg/dl (70-99)
[2025-04-15] MEDS: NSS 1000 IV ×3 (00:14→21:57)
[2025-04-15 03:01] VITALS: BP 130/58
[2025-04-15] MEDS: FLAGYL 500 MG 100 IV ×3 (03:16→20:27)
[2025-04-15] MEDS: DILAUDID 0.25 MG IV ×2 (05:37→16:50)
[2025-04-15 05:58] VITALS: BMI 41.9
[2025-04-15 07:04] LABS: Hematocrit 33.5 % (39.0-52.0); Hemoglobin 11.5 g/dL (13.0-18.0); Mean Corp Hgb Conc. 34.3 g/dL (33.0-37.0); Mean Corpuscular Volume 89.3 fL (80.0-94.0); Nucleated Red Blood Cells % 0 % (-); Platelet Count 162 10^3/uL (130-400); Red Cell Dist. Width 13.2 % (11.5-14.5)
[2025-04-15] MEDS: NOVOLOG FLEXPEN-LOW RESISTANCE SC ×2 (07:43→11:29)
[2025-04-15] MEDS: PROTONIX 40 MG PO (07:48)
[2025-04-15] MEDS: NORVASC 5 MG PO (07:48)
[2025-04-15] MEDS: VITAMIN B-12 1000 MCG PO (07:48)
[2025-04-15] MEDS: COREG 6.25 MG PO ×2 (07:49→20:26)
[2025-04-15] MEDS: TIKOSYN 250 MCG PO ×2 (07:49→20:26)
[2025-04-15] MEDS: TIKOSYN 125 MCG PO ×2 (07:49→20:26)
[2025-04-15 07:50] LABS: Glucose - Point of Care 101 mg/dl (70-99)
[2025-04-15] MEDS: SYMBICORT 160/4.5 MCG INHALER 2 PUFF INH ×2 (07:58→20:46)
[2025-04-15 08:34] LABS: Blood Urea Nitrogen 19 mg/dl (9-20); Calcium 8.1 mg/dl (8.4-10.2); Carbon Dioxide 26 mmol/L (22-30); Chloride 111 mmol/L (98-107); Estimated Creatinine Clearance 47 ml/min; Glucose 106 mg/dl (70-99); Magnesium 2.0 mg/dl (1.6-2.3); Potassium 3.5 mmol/L (3.5-5.1); Sodium 141 mmol/L (135-145); eGFR 49.56
[2025-04-15] MEDS: LASIX 40 MG PO (08:58)
--- NOTE | 2025-04-15 10:20 | CM ---
CM following re: discharge planning.
Reviewed pt's chart, met with pt.
Pt is an 84 year old male, admitted with primary dx of Abdominal Pain, Acute Appendicitis. PMH includes: CAD, HFrEF, atrial fibrillation on Xarelto (last dose on 04/13/25 evening), hypertension, type 2 diabetes mellitus, hyperlipidemia, CKD 3, COPD,
Patton's esophagitis and stomach ulcers, rectal bleeding, renal cell carcinoma status post right nephrectomy, HEMANTH, diverticulitis, arthritis and pneumonia.
Per surgery, tentatively for OR tomorrow for lap appy
Pt reports he lives with spouse 2SH, 1 step to enter, has 3 supportive children. pt described himself as independent in all areas [employer], uses a stick when does not feel well. No DME, VN or SNF history.
PCP: Macy Spring
Pharmacy: [facility]
D/C plan: home with anticipated no needs. Family to transport at discharge.
CM will follow with discharge plan updates as hospitalization progresses
--- NOTE | 2025-04-15 10:45 | W.PN.GS2 ---
Today's Communication / Plan
-
`
Assessment / Plan
-
Assessment: 84-year-old male presenting with probable subacute appendicitis. On therapeutic anticoagulation secondary to atrial fibrillation.
Personally reviewed CT imaging from 04/14/2025. While there certainly is appendiceal dilation and surrounding inflammatory changes there is no free fluid or abscess. The inflammatory changes are most severe in the region at the base of the appendix
and more concerning appears to be contiguous with the terminal ileum and cecum. The terminal ileum/ileocecal valve actually appears to be inserting laterally rather than medially. This may be as a result of colon mobilization for his nephrectomy
altering typical anatomy. No radiographic findings suggestive of associated bowel obstruction.
Detailed discussions with patient and his present via conference phone call. We discussed my interpretation of his CT imaging as outlined above. Given the severity of the inflammatory changes predominantly affecting the terminal ileum and
base of appendix/cecum I think it is highly unlikely that a simple appendectomy would be technically possible and therefore I would anticipate surgical intervention to most likely require an ileocecectomy.
I offered surgery however advised the patient that attempted nonoperative management is an alternative as he has been afebrile, normal white blood cell count, no signs of peritonitis. If there were to be progression with nonoperative management the
operation would likely be the same as I am anticipating right now being an ileocecectomy. If he responds to medical management then would end up further evaluating as an outpatient with CT imaging in 2 to 3 weeks and subsequent colonoscopy to rule
out underlying mass.
Plan: Patient and his advised that they are comfortable with attempting nonoperative management for the reasons outlined above
Will start on full liquid diet
Continue ceftriaxone/metronidazole coverage appendicitis
Please continue to hold Xarelto until we are assured that nonoperative management will be successful
Will continue to follow
Subjective Data
-
Date of Service: April 15, 2025
Patient seen and examined. Still with right sided abdominal pain and required a dose of Dilaudid this a.m. Improved from presentation but not resolved.
No nausea, no vomiting, passing flatus but no bowel movement since admission.
No subjective fevers chills or sweats. Feels a bit bloated
Objective Data
-
Intake and Output
04/14/25 04/15/25 04/16/25
06:59 06:59 06:59
Intake Total 680 / 680
Balance 680 / 680
Intake:
Oral fluids 480 / 480
IV piggybacks 200 / 200
Other:
Number of approximated MODERATE 4
amounts of urine
Vital Signs
Temp Pulse Resp BP Pulse Ox
98.1 F 81 16 153/74 97
04/15/25 03:01 04/15/25 08:04 04/15/25 08:04 04/15/25 07:49 04/15/25 08:04
Lab Results
04/15/25 06:15
04/15/25 07:56
Calcium 8.1 mg/dl (8.4-10.2) L 04/15/25 07:56
Magnesium 2.0 mg/dl (1.6-2.3) 04/15/25 07:56
Total Bilirubin 0.9 mg/dl (0.2-1.3) 04/14/25 04:26
AST 17 U/L (17-59) 04/14/25 04:26
ALT 14 U/L (0-50) 04/14/25 04:26
Alkaline Phosphatase 120 U/L (38-126) 04/14/25 04:26
Total Protein 6.5 g/dl (6.3-8.2) 04/14/25 04:26
Albumin 3.5 g/dl (3.5-5.0) 04/14/25 04:26
Physical Exam
-
NAD AAO x 3
ABD: Softly distended, tenderness to palpation localizing to the right flank at about the umbilical level. Some voluntary guarding on deep palpation but no significant rebound. No palpable mass.
[2025-04-15 11:00] VITALS: BP 139/72
[2025-04-15 11:06] LABS: C-Reactive Protein 124.30 mg/L (0.0-10.00)
[2025-04-15 11:24] LABS: Glucose - Point of Care 116 mg/dl (70-99)
[2025-04-15] MEDS: KCL 20 MEQ PO (11:52)
--- NOTE | 2025-04-15 15:11 | PN.CDI ---
CDI
- -
CDI:
Physician Documentation Request
Admit Date: 04/14/25 13:52
Dear Doctor Maximilian,
Clinical Indicators:
Height: 5 ft 6 in
Weight: 259 lbs 6 oz
BMI: 41.9
If possible, please provide an associated diagnosis related to the abnormal BMI, such as:
Obesity
Morbid Obesity
Other, please specify
BMI > or = to 40
Overweight
Obesity:
Due to excess calories
Drug induced
Due to other cause
Severe or morbid obesity:
With alveolar hypoventilation (Obesity hypoventilation syndrome)
Without alveolar hypoventilation
Use of terms such as suspected, likely, concern for, or probable (associated with a specific diagnosis that is being evaluated, monitored, or treated as if it exists) are acceptable and can be coded in the inpatient setting, when documented at the
time of discharge.
Thank you,
CLARENCE Boone RN
CDI Specialist
available via tiger text
Please use your independent medical judgment in providing your response.
[2025-04-15 15:18] VITALS: BP 147/64
--- NOTE | 2025-04-15 15:22 | W.PN.HOSP.TC ---
Today's Communication/Plan
-
Continue antibiotics
Full Liquids Diet
Assessment / Plan
Assessment / Plan
Physical Exam
General: No Apparent Distress, Comfortable and Conversant
HEENT: Normocephalic and Moist mucous membranes
Respiratory: Clear to Auscultation Bilaterally
Cardiac: S1/S2 and Regular Rhythm
GI: Soft, Normal Bowel Sounds and Tender (at the RLQ)
Musculoskeletal: No Cyanosis and No Edema
Skin: Warm and Dry
Neuro: Awake, Alert, AO x 3 and Nonfocal/grossly intact
Psych: Calm and Intact Judgment/Insight
Assessment/Plan
84 y/o male with past medical history of CAD, HFrEF, atrial fibrillation on Xarelto (last dose on 04/13/25 evening), hypertension, type 2 diabetes mellitus, hyperlipidemia, CKD 3, COPD, Patton's esophagitis and stomach ulcers, rectal bleeding,
renal cell carcinoma status post right nephrectomy, HEMANTH, diverticulitis, arthritis and pneumonia, presented with abdominal pain. He also had lower back pain mostly on the right that began 2 weeks ago after lifting heavy items at his home, over the
past day it became more severe and migrated to his right lower quadrant. He has been eating and drinking okay, and denied any nausea or vomiting.
#Presentation with abdominal pain
#Acute Appendicitis
-Continue Rocephin and Flagyl
-Start Full Liquids Diet
-Surgery onboard, surgery requested cardiac risk stratification given significant cardiac comorbidities, therefore cardiology consulted
-Per surgery team, continue to hold Xarelto until we are assured that nonoperative management will be successful
#Chronic HFrEF, history of improved EF
-Continue Furosemide
-Strict DIANDRA, daily weight
#Paroxysmal atrial fibrillation
-Continue Coreg
-Continue Tikosyn
-Hold Xarelto given tentative surgery tomorrow (patient's last dose of Xarelto was on 04/13/25 evening)
#Type 2 Diabetes Mellitus
-Hold home PO meds
-Accuchecks and Sliding Scale Insulin if needed
-On clear liquids diet for now given appendicitis
#CAD/MO
-Continue current anti-ischemic regimen
#Hypertension
-Continue Norvasc
#Hyperlipidemia
-Statin continued
#Chronic Kidney Disease Stage 3
-Cr 1.6--->1.4, last value in the chart was 1.9
-Monitor BMP
#History of renal cell carcinoma status post prior right nephrectomy for cancer
#COPD
-Stable, continue PRN albuterol
#History of Patton's esophagitis and stomach ulcers?
#History of Rectal bleeding?
-Continue home Pantoprazole
-Monitor for any rectal bleeding
-Patient takes Mesalamine at home for presumed IBD? I spoke on 04/15/25 with on-call GI, and okay to hold Mesalamine -- doesn't make a big difference
#HEMANTH
-Continue CPAP
#Morbid Obesity
#Diverticulitis
#Arthritis
#History of pneumonia
#Acute low back pain
#Ambulatory dysfunction due to back pain
DVT Prophylaxis: Heparin subq
Code Status: Full Code
Anticipated Discharge: > 48 hours
Subjective/Interval History
-
Date of Service: April 15, 2025
Patient was seen and examined. He reported his abdominal pain is better, and he denied any new symptoms or complaints.
Objective Data
-
Labs:
Laboratory Results
04/15/25 04/15/25
06:15 07:56
WBC 7.1
Hgb 11.5 L
Hct 33.5 L
Plt Count 162
Sodium Cancelled 141
Potassium Cancelled 3.5
Chloride Cancelled 111 H
Carbon Dioxide Cancelled 26
BUN Cancelled 19
Creatinine Cancelled 1.4 H
Glucose Cancelled 106 H
Calcium Cancelled 8.1 L
Vital Signs:
Vital Signs
Temp Pulse Resp BP Pulse Ox
97.7 F 59 16 147/64 96
04/15/25 15:18 04/15/25 15:18 04/15/25 15:18 04/15/25 15:18 04/15/25 15:18
I&O
04/14/25 04/15/25 04/16/25
06:59 06:59 06:59
Intake Total 680 / 680 100 / 100
Balance 680 / 680 100 / 100
[2025-04-15] MEDS: ROCEPHIN 2000 MG IV (15:54)
[2025-04-15] MEDS: STERILE WATER FOR INJECTION 20 ML IV (15:54)
[2025-04-15 16:45] LABS: Glucose - Point of Care 163 mg/dl (70-99)
[2025-04-15] MEDS: NOVOLOG FLEXPEN-LOW RESISTANCE 1 UNITS SC (17:47)
[2025-04-15] MEDS: LIPITOR 40 MG PO (17:48)
[2025-04-15 19:05] VITALS: BP 140/63
[2025-04-15 21:29] LABS: Glucose - Point of Care 122 mg/dl (70-99)
[2025-04-15 23:11] VITALS: BP 132/50
[2025-04-16 02:39] VITALS: BP 154/78
--- NOTE | 2025-04-16 03:10 | PTCARENOTE ---
Pt c/o feeling severe bloating and feeling warm. Vitals stable. Temp 98.9. Refused rectal temp. JIMI Mcdermott notified and aware. Abdominal assessment unchanged from earlier - soft, tender, guarding. EKG completed NSR BBB. OOB to chair. Ambulated
to bathroom and had BM. Pt more comfortable but still having discomfort. Offered pt a walk but declined. Applied a warm blanket to abdomen and laying in bed on left side. Pt resting. Care ongoing.
--- NOTE | 2025-04-16 03:10 | W.PN.UPDATE ---
Update Note
Progress Note Update
Patient slept early on during this shift and awakened c/o being warm and feeling bloated. He ate 2 trays of full liquids yesterday. Denies nausea/ vomiting. OOB in chair. Abdominal assessment by nursing is unchanged-softly distended. Encouraged
ambulation, will attempt bm (without straining), warm blanket to abdomen and laying in bed on left side. Rectal temp pending. Oral temp 98.8.
[2025-04-16] MEDS: FLAGYL 500 MG 100 IV ×3 (03:37→20:36)
[2025-04-16 06:00] VITALS: BMI 42.4
--- NOTE | 2025-04-16 07:27 | W.PN.HOSP.TC ---
Today's Communication/Plan
-
NPO, antibiotics, probiotics
See plan
Assessment / Plan
Assessment / Plan
Physical Exam
General: No Apparent Distress, Comfortable and Conversant
HEENT: Normocephalic and Moist mucous membranes
Respiratory: Clear to Auscultation Bilaterally
Cardiac: S1/S2 and Regular Rhythm
GI: Soft, Normal Bowel Sounds and Tender (at the RLQ)
Musculoskeletal: No Cyanosis and No Edema
Skin: Warm and Dry
Neuro: Awake, Alert, AO x 3 and Nonfocal/grossly intact
Psych: Calm and Intact Judgment/Insight
Assessment/Plan
84 y/o male with past medical history of CAD, HFrEF, atrial fibrillation on Xarelto (last dose on 04/13/25 evening), hypertension, type 2 diabetes mellitus, hyperlipidemia, CKD 3, COPD, Patton's esophagitis and stomach ulcers, rectal bleeding,
renal cell carcinoma status post right nephrectomy, HEMANTH, diverticulitis, arthritis and pneumonia, presented with abdominal pain. He also had lower back pain mostly on the right that began 2 weeks ago after lifting heavy items at his home, over the
past day it became more severe and migrated to his right lower quadrant. He has been eating and drinking okay, and denied any nausea or vomiting.
#Presentation with abdominal pain
#Acute Appendicitis
-Continue Rocephin and Flagyl
-Full Liquids Diet changed back to NPO given bloating
-Surgery onboard, surgery requested cardiac risk stratification given significant cardiac comorbidities, therefore cardiology consulted
-Per surgery team, continue to hold Xarelto until we are assured that nonoperative management will be successful
#Chronic HFrEF, history of improved EF
-Continue Furosemide
-Strict DIANDRA, daily weight
#Paroxysmal atrial fibrillation
-Continue Coreg
-Continue Tikosyn
-Hold Xarelto for now (patient's last dose of Xarelto was on 04/13/25 evening)
#Type 2 Diabetes Mellitus
-Hold home PO meds
-Accuchecks and Sliding Scale Insulin if needed
#CAD/[place]
-Continue current anti-ischemic regimen
#Hypertension
-Continue Norvasc
#Hyperlipidemia
-Statin continued
#Chronic Kidney Disease Stage 3
-Cr 1.6--->1.4, last value in the chart was 1.9
-Monitor BMP
#History of renal cell carcinoma status post prior right nephrectomy for cancer
#COPD
-Stable, continue PRN albuterol
#History of Patton's esophagitis and stomach ulcers?
#History of Rectal bleeding?
-Continue home Pantoprazole
-Monitor for any rectal bleeding
-Patient takes Mesalamine at home for presumed IBD? I spoke on 04/15/25 with on-call GI, and okay to hold Mesalamine -- doesn't make a big difference
#HEMANTH
-Continue CPAP
#Morbid Obesity
#Diverticulitis
#Arthritis
#History of pneumonia
#Acute low back pain
#Ambulatory dysfunction due to back pain
DVT Prophylaxis: Heparin subq
Code Status: Full Code
Anticipated Discharge: > 48 hours
Subjective/Interval History
-
Date of Service: April 16, 2025
Patient was seen and examined. He reported his abdominal pain is gone, but he had bloating.
Objective Data
-
Labs:
Laboratory Results
04/16/25
07:24
WBC Pending
Hgb Pending
Hct Pending
Plt Count Pending
Sodium Pending
Potassium Pending
Chloride Pending
Carbon Dioxide Pending
BUN Pending
Creatinine Pending
Glucose Pending
Calcium Pending
Vital Signs:
Vital Signs
Temp Pulse Resp BP Pulse Ox
98.8 F 66 19 154/78 95
04/16/25 03:00 04/16/25 02:39 04/16/25 02:39 04/16/25 02:39 04/15/25 23:11
I&O
04/15/25 04/16/25 04/17/25
06:59 06:59 06:59
Intake Total 680 / 680 2259 / 2259
Balance 680 / 680 2259
[2025-04-16] MEDS: SYMBICORT 160/4.5 MCG INHALER 2 PUFF INH ×2 (07:51→19:59)
[2025-04-16 08:00] VITALS: BP 155/89
[2025-04-16 08:12] LABS: Glucose - Point of Care 135 mg/dl (70-99)
[2025-04-16 08:12] LABS: Hematocrit 34.9 % (39.0-52.0); Hemoglobin 11.5 g/dL (13.0-18.0); Mean Corp Hgb Conc. 33.0 g/dL (33.0-37.0); Mean Corpuscular Volume 90.2 fL (80.0-94.0); Nucleated Red Blood Cells % 0 % (-); Platelet Count 175 10^3/uL (130-400); Red Cell Dist. Width 13.3 % (11.5-14.5)
[2025-04-16] MEDS: NOVOLOG FLEXPEN-LOW RESISTANCE SC ×3 (08:40→18:52)
[2025-04-16 08:47] LABS: C-Reactive Protein 69.30 mg/L (0.0-10.00)
[2025-04-16 08:53] LABS: Blood Urea Nitrogen 17 mg/dl (9-20); Calcium 8.0 mg/dl (8.4-10.2); Carbon Dioxide 27 mmol/L (22-30); Chloride 108 mmol/L (98-107); Estimated Creatinine Clearance 48 ml/min; Glucose 124 mg/dl (70-99); Potassium 3.6 mmol/L (3.5-5.1); Sodium 140 mmol/L (135-145); eGFR 49.56
[2025-04-16] MEDS: LASIX 40 MG PO (08:55)
[2025-04-16] MEDS: VITAMIN B-12 1000 MCG PO (08:55)
[2025-04-16] MEDS: COREG 6.25 MG PO ×2 (08:56→20:38)
[2025-04-16] MEDS: TIKOSYN 250 MCG PO ×2 (08:56→20:40)
[2025-04-16] MEDS: PROTONIX 40 MG PO (08:57)
[2025-04-16] MEDS: NORVASC 5 MG PO (08:57)
[2025-04-16] MEDS: TIKOSYN 125 MCG PO ×2 (08:58→20:40)
--- NOTE | 2025-04-16 11:04 | W.PN.GS2 ---
Addendum entered and electronically signed by Trae Thurman MD 04/16/25 12:49:
I saw and examined the patient.
The TREASURY ACCOUNTANT's note was reviewed and I agree with the note.
Comment: Pain improved, bloating worse, also mild nausea; mild ttp on exam to rlq, AFVSS, CRP improving, may be developing ileus; cont non-op mgmt for now with iv abx, OK for sips and chips
Original Note:
Today's Communication / Plan
-
sips of clears
continue abx
Assessment / Plan
-
Assessment: 84-year-old male presenting with probable subacute appendicitis. 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
CT imaging from 04/14/2025 with appendiceal dilation and surrounding inflammatory changes there is no free fluid or abscess. The inflammatory changes are most severe in the region at the base of the appendix and more concerning appears to be
contiguous with the terminal ileum and cecum. The terminal ileum/ileocecal valve actually appears to be inserting laterally rather than medially. This may be as a result of colon mobilization for his nephrectomy altering typical anatomy. No
radiographic findings suggestive of associated bowel obstruction.
Following with nonoperative measures at this time for improvement
CRP improved today, continues without leukocytosis or fevers
VSS
Cr elevated but stable
Bloating/nausea with FLD, high risk for ileus
Plan:
NPO with sips of clears
trend labs
Continue ceftriaxone/metronidazole coverage appendicitis
Please continue to hold Xarelto until we are assured that nonoperative management will be successful
IVF/diuretics as per primary team
Will continue to follow
Subjective Data
-
Date of Service: April 16, 2025
Pt seen and examined at bedside with Dr. Thurman. Denies vomiting but with mild nausea and increased bloating overnight. Poor appetite. Passing flatus, no bm's as of yet. Pain improving, but feeling it more in his right lower back today.
Objective Data
-
Intake and Output
04/15/25 04/16/25 04/17/25
06:59 06:59 06:59
Intake Total 680 / 680 2260 / 2260
Balance 680 / 680 0 / 2260
Intake:
Oral fluids 480 / 480 1660 / 1660
IV fluids (Total) 300 / 300
IV piggybacks 200 / 200 300 / 300
Other:
Number of approximated MODERATE 4 1
amounts of urine
Vital Signs
Temp Pulse Resp BP Pulse Ox
97.9 F 67 18 155/89 95
04/16/25 08:00 04/16/25 08:55 04/16/25 08:00 04/16/25 08:55 04/16/25 08:00
Lab Results
04/16/25 07:24
04/16/25 07:24
Calcium 8.0 mg/dl (8.4-10.2) L 04/16/25 07:24
Magnesium 2.0 mg/dl (1.6-2.3) 04/15/25 07:56
Total Bilirubin 0.9 mg/dl (0.2-1.3) 04/14/25 04:26
AST 17 U/L (17-59) 04/14/25 04:26
ALT 14 U/L (0-50) 04/14/25 04:26
Alkaline Phosphatase 120 U/L (38-126) 04/14/25 04:26
Total Protein 6.5 g/dl (6.3-8.2) 04/14/25 04:26
Albumin 3.5 g/dl (3.5-5.0) 04/14/25 04:26
Physical Exam
-
NAD AAO x 3
ABD: Softly distended, tenderness to palpation localizing to the right flank at about the umbilical level. Some voluntary guarding on deep palpation but no significant rebound. No palpable mass.
[2025-04-16 11:15] VITALS: BP 146/69
[2025-04-16 12:03] LABS: Glucose - Point of Care 121 mg/dl (70-99)
[2025-04-16] MEDS: ROCEPHIN 2000 MG IV (13:49)
[2025-04-16] MEDS: STERILE WATER FOR INJECTION 20 ML IV (13:49)
--- NOTE | 2025-04-16 14:10 | CM ---
CM following re: discharge planning.
Reviewed pt's chart, met with pt.
Per surgery, cont non-operative management for now with IV antibiotics, continue supportive care.
Pt lives with spouse 2SH, 1 step to enter, has 3 supportive children. 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
D/C plan: home with anticipated no needs. Family to transport at discharge.
CM will follow with discharge plan updates as hospitalization progresses
[2025-04-16 15:05] VITALS: BP 146/68
[2025-04-16 18:04] LABS: Glucose - Point of Care 131 mg/dl (70-99)
[2025-04-16] MEDS: VISBIOME 1 CAP PO (18:51)
[2025-04-16] MEDS: LIPITOR 40 MG PO (18:51)
[2025-04-16 19:04] VITALS: BP 162/72
[2025-04-16] MEDS: ROXICODONE 5 MG PO (20:54)
[2025-04-16 23:00] VITALS: BP 146/72
[2025-04-17 00:19] LABS: Glucose - Point of Care 129 mg/dl (70-99)
[2025-04-17] MEDS: NOVOLOG FLEXPEN-LOW RESISTANCE SC ×3 (00:35→12:31)
[2025-04-17 03:00] VITALS: BP 121/57
[2025-04-17] MEDS: FLAGYL 500 MG 100 IV ×3 (04:08→20:00)
[2025-04-17] MEDS: ROXICODONE 5 MG PO (05:37)
[2025-04-17 05:38] LABS: Glucose - Point of Care 118 mg/dl (70-99)
[2025-04-17 05:42] VITALS: BMI 41.2
[2025-04-17 07:20] VITALS: BP 158/73
[2025-04-17] MEDS: SYMBICORT 160/4.5 MCG INHALER 2 PUFF INH ×2 (07:38→19:41)
[2025-04-17] MEDS: NORVASC 5 MG PO (08:21)
[2025-04-17] MEDS: TIKOSYN 250 MCG PO ×2 (08:21→19:59)
[2025-04-17] MEDS: COREG 6.25 MG PO ×2 (08:21→19:59)
[2025-04-17] MEDS: LASIX 40 MG PO (08:21)
[2025-04-17] MEDS: PROTONIX 40 MG PO (08:21)
[2025-04-17] MEDS: TIKOSYN 125 MCG PO ×2 (08:21→19:59)
[2025-04-17] MEDS: VISBIOME 1 CAP PO (08:21)
[2025-04-17] MEDS: VITAMIN B-12 1000 MCG PO (08:22)
[2025-04-17 09:35] LABS: Hematocrit 35.5 % (39.0-52.0); Hemoglobin 11.9 g/dL (13.0-18.0); Mean Corp Hgb Conc. 33.5 g/dL (33.0-37.0); Mean Corpuscular Volume 89.0 fL (80.0-94.0); Nucleated Red Blood Cells % 0 % (-); Platelet Count 177 10^3/uL (130-400); Red Cell Dist. Width 13.2 % (11.5-14.5)
[2025-04-17 10:18] LABS: Blood Urea Nitrogen 19 mg/dl (9-20); Calcium 8.3 mg/dl (8.4-10.2); Carbon Dioxide 27 mmol/L (22-30); Chloride 104 mmol/L (98-107); Estimated Creatinine Clearance 44 ml/min; Glucose 120 mg/dl (70-99); Potassium 3.5 mmol/L (3.5-5.1); Sodium 140 mmol/L (135-145); eGFR 45.62
[2025-04-17 10:21] LABS: C-Reactive Protein 48.60 mg/L (0.0-10.00)
[2025-04-17 11:15] VITALS: BP 162/79
[2025-04-17 11:58] LABS: Glucose - Point of Care 122 mg/dl (70-99)
[2025-04-17] MEDS: OFIRMEV 100 IV ×3 (12:58→23:41)
[2025-04-17] MEDS: ROCEPHIN 2000 MG IV (14:41)
[2025-04-17] MEDS: STERILE WATER FOR INJECTION 20 ML IV (14:43)
[2025-04-17 15:15] VITALS: BP 158/75
--- NOTE | 2025-04-17 15:30 | W.PN.GS2 ---
Addendum entered and electronically signed by Trae Thurman MD 04/17/25 16:23:
I saw and examined the patient.
The Cna Hha's note was reviewed and I agree with the note.
Comment: Improving, less pain, some hiccups noted, less distention, exam with less ttp to rlq, will trial cld, iv abx, limit narcs
Original Note:
Today's Communication / Plan
-
ABX
Clears
Assessment / Plan
-
Assessment: 84-year-old male presenting with probable subacute appendicitis. 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
CT imaging from 04/14/2025 with appendiceal dilation and surrounding inflammatory changes there is no free fluid or abscess. The inflammatory changes are most severe in the region at the base of the appendix and more concerning appears to be
contiguous with the terminal ileum and cecum. The terminal ileum/ileocecal valve actually appears to be inserting laterally rather than medially. This may be as a result of colon mobilization for his nephrectomy altering typical anatomy. No
radiographic findings suggestive of associated bowel obstruction.
Following with nonoperative measures at this time for improvement
CRP continues trending down, continues without leukocytosis or fevers
VSS
Cr elevated but stable
Nausea with narcotics but bloating/belching improved. Passing flatus now. Still with some hiccups
Ileus present as expected
Plan:
Trial of clears
Ofirmev ATC, avoid narcotics if able
trend labs
Continue ceftriaxone/metronidazole coverage for appendicitis
Please continue to hold Xarelto until we are assured that nonoperative management will be successful
IVF/diuretics as per primary team
Lyme sent per pt request given recent tick bites; no bulls eye rash
Will continue to follow
Subjective Data
-
Date of Service: April 17, 2025
Pt seen and examined at bedside with Dr. Thurman. Nausea with small amount of emesis after PO oxycodone. Passing gas. Bloating improved but still present. Pain much improved. Passing flatus. Hiccups have been frequent.
Objective Data
-
Intake and Output
04/16/25 04/17/25 04/18/25
06:59 06:59 06:59
Intake Total 2260 / 2260 1210 / 1210 200 / 200
Balance 2260 / 2260 1210 / 1210 200 / 200
Intake:
Oral fluids 1660 / 1660 960 / 960
IV fluids (Total) 300 / 300 50 / 50
IV piggybacks 300 / 300 200 / 200 200 / 200
Other:
Number of approximated MODERATE 1 1
amounts of urine
Vital Signs
Temp Pulse Resp BP Pulse Ox
97.6 F 62 16 162/79 95
04/17/25 11:15 04/17/25 11:15 04/17/25 11:15 04/17/25 11:15 04/17/25 11:15
Lab Results
04/17/25 09:13
04/17/25 09:13
Calcium 8.3 mg/dl (8.4-10.2) L 04/17/25 09:13
Magnesium 2.0 mg/dl (1.6-2.3) 04/15/25 07:56
Total Bilirubin 0.9 mg/dl (0.2-1.3) 04/14/25 04:26
AST 17 U/L (17-59) 04/14/25 04:26
ALT 14 U/L (0-50) 04/14/25 04:26
Alkaline Phosphatase 120 U/L (38-126) 04/14/25 04:26
Total Protein 6.5 g/dl (6.3-8.2) 04/14/25 04:26
Albumin 3.5 g/dl (3.5-5.0) 04/14/25 04:26
Physical Exam
-
NAD AAO x 3
ABD: Softly distended, tenderness to RLQ (mild/improved), no r/r/g
[2025-04-17 17:57] LABS: Glucose - Point of Care 182 mg/dl (70-99)
[2025-04-17] MEDS: LIPITOR 40 MG PO (17:57)
--- NOTE | 2025-04-17 18:33 | W.PN.HOSP.TC ---
Today's Communication/Plan
-
See plan
Assessment / Plan
Assessment / Plan
Physical Exam
General: No Apparent Distress, Comfortable and Conversant
HEENT: Normocephalic and Moist mucous membranes
Respiratory: Clear to Auscultation Bilaterally
Cardiac: S1/S2 and Regular Rhythm
GI: Soft, Normal Bowel Sounds and Tender (at the RLQ)
Musculoskeletal: No Cyanosis and No Edema
Skin: Warm and Dry
Neuro: Awake, Alert, AO x 3 and Nonfocal/grossly intact
Psych: Calm and Intact Judgment/Insight
Assessment/Plan
84 y/o male with past medical history of CAD, HFrEF, atrial fibrillation on Xarelto (last dose on 04/13/25 evening), hypertension, type 2 diabetes mellitus, hyperlipidemia, CKD 3, COPD, Patton's esophagitis and stomach ulcers, rectal bleeding,
renal cell carcinoma status post right nephrectomy, HEMANTH, diverticulitis, arthritis and pneumonia, presented with abdominal pain. He also had lower back pain mostly on the right that began 2 weeks ago after lifting heavy items at his home, over the
past day it became more severe and migrated to his right lower quadrant. He has been eating and drinking okay, and denied any nausea or vomiting.
#Presentation with abdominal pain
#Acute Appendicitis
-Continue Rocephin and Flagyl
-Full Liquids Diet changed back to NPO (on 04/16/25) given bloating. Probiotic added at that time.
-NPO advanced to Clear Liquids Diet on 04/17/25 since bloating has improved.
-Surgery onboard, surgery requested cardiac risk stratification given significant cardiac comorbidities, therefore cardiology consulted
-Per surgery team, continue to hold Xarelto until we are assured that nonoperative management will be successful
#Chronic HFrEF, history of improved EF
-Continue Furosemide
-Strict DIANDRA, daily weight
#Paroxysmal atrial fibrillation
-Continue Coreg
-Continue Tikosyn
-Hold Xarelto for now (patient's last dose of Xarelto was on 04/13/25 evening)
#Type 2 Diabetes Mellitus
-Hold home PO meds
-Accuchecks and Sliding Scale Insulin if needed
#CAD/[place]
-Continue current anti-ischemic regimen
#Hypertension
-Continue Norvasc
#Hyperlipidemia
-Statin continued
#Chronic Kidney Disease Stage 3
-Cr 1.6-->1.4-->1.5, last value in the chart was 1.9
-Monitor BMP
#History of renal cell carcinoma status post prior right nephrectomy for cancer
#COPD
-Stable, continue PRN albuterol
#History of Patton's esophagitis and stomach ulcers?
#History of Rectal bleeding?
-Continue home Pantoprazole
-Monitor for any rectal bleeding
-Patient takes Mesalamine at home for presumed IBD? I spoke on 04/15/25 with on-call GI, and okay to hold Mesalamine -- doesn't make a big difference
#HEMANTH
-Continue CPAP
#Morbid Obesity
#Diverticulitis
#Arthritis
#History of pneumonia
#Acute low back pain
#Ambulatory dysfunction due to back pain
Surgery team sent Lyme test per patient's request given recent tick bites; no bulls eye rash.
DVT Prophylaxis: Heparin subq
Code Status: Full Code
Anticipated Discharge: > 48 hours
Subjective/Interval History
-
Date of Service: April 17, 2025
Patient was seen and examined. He reported that his abdominal bloating is much better today. He denied any other symptoms/complaints.
Objective Data
-
Labs:
Laboratory Results
04/17/25
09:13
WBC 5.8
Hgb 11.9 L
Hct 35.5 L
Plt Count 177
Sodium 140
Potassium 3.5
Chloride 104
Carbon Dioxide 27
BUN 19
Creatinine 1.5 H
Glucose 120 H
Calcium 8.3 L
Vital Signs:
Vital Signs
Temp Pulse Resp BP Pulse Ox
97.5 F 55 16 158/75 93
04/17/25 15:15 04/17/25 15:15 04/17/25 15:15 04/17/25 15:15 04/17/25 15:15
I&O
04/16/25 04/17/25 04/18/25
06:59 06:59 06:59
Intake Total 2260 / 2260 1210 / 1210 780 / 780
Balance 2260 / 2260 1210 / 1210 780 / 780
[2025-04-17] MEDS: NOVOLOG FLEXPEN-LOW RESISTANCE 1 UNITS SC (18:42)
[2025-04-17 19:00] VITALS: BP 170/75
[2025-04-17 23:03] VITALS: BP 158/74
[2025-04-17 23:45] LABS: Glucose - Point of Care 117 mg/dl (70-99)
[2025-04-18] MEDS: NOVOLOG FLEXPEN-LOW RESISTANCE SC ×4 (00:47→18:19)
[2025-04-18 03:00] VITALS: BP 125/54
[2025-04-18] MEDS: FLAGYL 500 MG 100 IV ×3 (03:55→20:47)
[2025-04-18] MEDS: OFIRMEV 100 IV (05:07)
[2025-04-18 05:49] LABS: Glucose - Point of Care 115 mg/dl (70-99)
--- NOTE | 2025-04-18 05:56 | PTCARENOTE ---
pt experienced intermittent nausea and dry heaving t/o the night; did not vomit; relieved with change in position and cold compress; care ongoing;
[2025-04-18 06:00] VITALS: BMI 41.1
[2025-04-18] MEDS: SYMBICORT 160/4.5 MCG INHALER 2 PUFF INH ×2 (07:24→20:07)
[2025-04-18] MEDS: TIKOSYN 125 MCG PO ×2 (07:39→20:46)
[2025-04-18] MEDS: PROTONIX 40 MG PO (07:39)
[2025-04-18] MEDS: COREG 6.25 MG PO ×2 (07:39→20:46)
[2025-04-18] MEDS: VITAMIN B-12 1000 MCG PO (07:39)
[2025-04-18] MEDS: TIKOSYN 250 MCG PO ×2 (07:39→20:47)
[2025-04-18] MEDS: VISBIOME 1 CAP PO (07:39)
[2025-04-18] MEDS: LASIX 40 MG PO (07:40)
[2025-04-18] MEDS: NORVASC 5 MG PO (07:40)
--- NOTE | 2025-04-18 07:50 | W.PN.HOSP.TC ---
Today's Communication/Plan
-
Heparin Drip
Medical management and monitoring for now, continue to hold Xarelto in case patient needs to go to OR
Clear Liquids Diet
Continue antibiotics
Assessment / Plan
Assessment / Plan
Physical Exam
General: No Apparent Distress, Comfortable and Conversant
HEENT: Normocephalic and Moist mucous membranes
Respiratory: Clear to Auscultation Bilaterally
Cardiac: S1/S2 and Regular Rhythm
GI: Soft, Normal Bowel Sounds and Tender (at the RLQ)
Musculoskeletal: No Cyanosis and No Edema
Skin: Warm and Dry
Neuro: Awake, Alert, AO x 3 and Nonfocal/grossly intact
Psych: Calm and Intact Judgment/Insight
Assessment/Plan
84 y/o male with past medical history of CAD, HFrEF, atrial fibrillation on Xarelto (last dose on 04/13/25 evening), hypertension, type 2 diabetes mellitus, hyperlipidemia, CKD 3, COPD, Patton's esophagitis and stomach ulcers, rectal bleeding,
renal cell carcinoma status post right nephrectomy, HEMANTH, diverticulitis, arthritis and pneumonia, presented with abdominal pain. He also had lower back pain mostly on the right that began 2 weeks ago after lifting heavy items at his home, over the
past day it became more severe and migrated to his right lower quadrant. He has been eating and drinking okay, and denied any nausea or vomiting.
#Presentation with abdominal pain
#Acute Appendicitis
-Continue Rocephin and Flagyl
-Full Liquids Diet changed back to NPO (on 04/16/25) given bloating. Probiotic added at that time.
-NPO advanced to Clear Liquids Diet on 04/17/25 since bloating has improved -- continue clear liquid diet
-Reglan 5mg q8h prn nausea as per surgery team -- need to monitor QTc closely since patient is also on Tikosyn
-Surgery onboard, surgery requested cardiac risk stratification given significant cardiac comorbidities, therefore cardiology consulted
-Per surgery team, continue to hold Xarelto until we are assured that nonoperative management will be successful (bridging with Heparin Drip given duration patient is off Xarelto thus far)
#Chronic HFrEF, history of improved EF
-Continue Furosemide
-Strict I's and O's, daily weights
#Paroxysmal atrial fibrillation
-Continue Coreg
-Continue Tikosyn
-Hold Xarelto for now (patient's last dose of Xarelto was on 04/13/25 evening)
-I started Heparin Drip given duration (4 to 5 days) patient has been off Xarelto -- cardiology is in agreement with this plan
-Continue Heparin Drip
#Type 2 Diabetes Mellitus
-Hold home PO meds
-Accuchecks and Sliding Scale Insulin if needed
#CAD/[place]
-Continue current anti-ischemic regimen
#Hypertension
-Continue Norvasc
#Hyperlipidemia
-Statin continued
#Chronic Kidney Disease Stage 3
-Cr 1.6-->1.4-->1.5, last value in the chart was 1.9
-Monitor BMP
#History of renal cell carcinoma status post prior right nephrectomy for cancer
#COPD
-Stable, continue PRN albuterol
#History of Patton's esophagitis and stomach ulcers?
#History of Rectal bleeding?
-Continue home Pantoprazole
-Monitor for any rectal bleeding
-Patient takes Mesalamine at home for presumed IBD? I spoke on 04/15/25 with on-call GI, and okay to hold Mesalamine -- doesn't make a big difference
#HEMANTH
-Continue CPAP
#Morbid Obesity
#Diverticulitis
#Arthritis
#History of pneumonia
#Acute low back pain
#Ambulatory dysfunction due to back pain
Surgery team sent Lyme test per patient's request given recent tick bites; no bulls eye rash.
DVT Prophylaxis: Heparin Drip
Code Status: Full Code
Anticipated Discharge: > 48 hours
Subjective/Interval History
-
Date of Service: April 18, 2025
Patient was seen and examined. He reported feeling more tired than yesterday, no new abdominal pain or bloating.
Objective Data
-
Labs:
Laboratory Results
04/18/25
07:35
WBC Pending
Hgb Pending
Hct Pending
Plt Count Pending
Sodium Pending
Potassium Pending
Chloride Pending
Carbon Dioxide Pending
BUN Pending
Creatinine Pending
Glucose Pending
Calcium Pending
Vital Signs:
Vital Signs
Temp Pulse Resp BP Pulse Ox
97.0 F 59 16 125/54 94
04/18/25 03:00 04/18/25 07:27 04/18/25 07:27 04/18/25 03:00 04/18/25 07:27
I&O
04/17/25 04/18/25 04/19/25
06:59 06:59 06:59
Intake Total 1210 / 1210 1180 / 1180
Balance 1210 / 1210 1180 / 1180
[2025-04-18 08:05] VITALS: BP 167/71
[2025-04-18 08:18] LABS: Hematocrit 35.3 % (39.0-52.0); Hemoglobin 11.9 g/dL (13.0-18.0); Mean Corp Hgb Conc. 33.7 g/dL (33.0-37.0); Mean Corpuscular Volume 89.1 fL (80.0-94.0); Nucleated Red Blood Cells % 0 % (-); Platelet Count 181 10^3/uL (130-400); Red Cell Dist. Width 13.2 % (11.5-14.5)
[2025-04-18 09:13] LABS: Blood Urea Nitrogen 18 mg/dl (9-20); Calcium 8.0 mg/dl (8.4-10.2); Carbon Dioxide 28 mmol/L (22-30); Chloride 105 mmol/L (98-107); Estimated Creatinine Clearance 44 ml/min; Glucose 120 mg/dl (70-99); Magnesium 1.9 mg/dl (1.6-2.3); Potassium 3.3 mmol/L (3.5-5.1); Sodium 138 mmol/L (135-145); eGFR 45.62
[2025-04-18] MEDS: REGLAN 5 MG IV (09:14)
[2025-04-18 09:20] LABS: C-Reactive Protein 33.00 mg/L (0.0-10.00)
[2025-04-18 11:10] VITALS: BP 156/80
[2025-04-18 12:03] LABS: Glucose - Point of Care 145 mg/dl (70-99)
[2025-04-18] MEDS: KCL 270 MEQ IV (13:15)
--- NOTE | 2025-04-18 13:37 | W.PN.GS2 ---
Addendum entered and electronically signed by Trae Thurman MD 04/18/25 18:09:
I saw and examined the patient.
The Centrifuge Operator's note was reviewed and I agree with the note.
Comment: Incrementally improving, likely mild ileus, exam improves each day, less ttp today to rlq but not totally resolved. Cont IV abx, cld for today
Original Note:
Today's Communication / Plan
-
Clears, abx, antiemetics
Assessment / Plan
-
Assessment: 84-year-old male presenting with probable subacute appendicitis. 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
Given extent of inflammation on CT imaging, following with nonoperative measures at this time for improvement
CRP continues trending down, continues without leukocytosis or fevers. Pain continues to improve.
Ileus present
AFVSS
Cr elevated but stable
Plan:
C/W clears
Discussed with pharmacy. Added Reglan 5mg q8h prn nausea.
As pt on Tikosyn will monitor EKG daily for QTc prolongation while on antiemetics, continue tele
Acetaminophen ATC, avoid narcotics if able
Trend labs
Continue ceftriaxone/metronidazole coverage for appendicitis
Please continue to hold Xarelto until we are assured that nonoperative management will be successful, ok for IV heparin if warranted
IVF/diuretics as per primary team
Will continue to follow
Subjective Data
-
Date of Service: April 18, 2025
Pt seen and examined at bedside with Dr. Thurman. Nausea with dry heaving overnight but improved with reglan. Passing some small amounts of flatus. Pain continues to improve.
Objective Data
-
Intake and Output
04/17/25 04/18/25 04/19/25
06:59 06:59 06:59
Intake Total 1210 / 1210 1180 / 1180
Balance 1210 / 1210 1180 / 1180
Intake:
Oral fluids 960 / 960 480 / 480
IV fluids (Total) 50 / 50 100 / 100
IV piggybacks 200 / 200 600 / 600
Other:
Number of approximated MODERATE 1 4
amounts of urine
Vital Signs
Temp Pulse Resp BP Pulse Ox
98 F 58 16 156/80 98
04/18/25 11:10 04/18/25 11:10 04/18/25 11:10 04/18/25 11:10 04/18/25 11:10
Lab Results
04/18/25 07:35
04/18/25 07:35
Calcium 8.0 mg/dl (8.4-10.2) L 04/18/25 07:35
Phosphorus 2.7 mg/dl (2.5-4.5) 04/18/25 07:35
Magnesium 1.9 mg/dl (1.6-2.3) 04/18/25 07:35
Total Bilirubin 0.9 mg/dl (0.2-1.3) 04/14/25 04:26
AST 17 U/L (17-59) 04/14/25 04:26
ALT 14 U/L (0-50) 04/14/25 04:26
Alkaline Phosphatase 120 U/L (38-126) 04/14/25 04:26
Total Protein 6.5 g/dl (6.3-8.2) 04/14/25 04:26
Albumin 3.5 g/dl (3.5-5.0) 04/14/25 04:26
Physical Exam
-
NAD AAO x 3
ABD: Softly distended, tenderness to RLQ (mild/improved), no r/r/g
[2025-04-18 15:20] VITALS: BP 174/86
--- NOTE | 2025-04-18 16:40 | W.PN.CARDCBS ---
Today's Communication / Plan
-
Agree with heparin drip, resume Xarelto when safe from surgical standpoint
Continue current cardiac meds
Impression / Plan
-
PCP: Ekaterina Spring
Airset Molder: Dr. García Adam
Impression:
Admitted with acute appendicitis 04/14/2025
Chronic HFrEF
CKD
Paroxysmal Afib
Chronic dofetilide therapy
Chronic Xarelto OAC
Amiodarone intolerance
Improved cardiomyopathy, EF 15% by RENETTA pre-PVI 02/03/15, then improved to 50-55% by Echo 2017, then reduced again to 35-40% by echo 05/17/20
Zenker diverticulum
CAD s/p SC and POBA of RPDA 06/2014
LBBB
Chronic asthma with a history of inhaler noncompliance
HEMANTH on CPAP
Obese, BMI 44
Hypertension
Hyperlipidemia
GERD
DM 2
Renal cell carcinoma s/p R nephrectomy 11/2020
Echo 08/16/14: EF 40-45%
RENETTA 02/03/15: EF 15% with severe global hypokinesis, mild to moderate MR, dilated left atrial appendage without thrombus
Echo 05/04/15: EF 60%, moderate concentric LVH, no significant valvular disease
Echo 12/30/19: EF 30-35%, global hypokinesis, moderate concentric LVH, mild MR, technically difficult study and recommend to repeat with Definity
Echo 05/17/20: EF 35-40%, global hypokinesis, mild concentric LVH, trace MR, aortic sclerosis without stenosis
Echo 02/14/22: EF 35-40%, global hypokinesis, mild MR, enlarged RV size with normal Rv systolic function
Echo 10/05/2024: EF 35 to 40%, global hypokinesis, no MR
Plan:
-Patient came to the hospital with right-sided abdominal discomfort and is admitted with acute appendicitis and cardiology has been consulted for preoperative cardiovascular risk stratification. Patient was seen by the surgery team and they
reviewed the CT scan that showed an inflamed appendix. Patient is currently on IV antibiotics and says his pain has improved. Patient has paroxysmal A-fib and is chronically on Tikosyn, currently in SR. He took his usual dose of Xarelto last
night. He denies any recent chest pain or SOB. He has a history of SC with POBA of the PDA back in 2013. He had an echo in September that showed EF 35 to 40% which is stable for him going back to at least 2019.
-Patient denies any unstable angina or heart failure symptoms. He is at elevated but not prohibitive cardiovascular risk.
-Recommend avoiding QT prolonging medications as able aside from his typical Tikosyn. Continue perioperative telemetry monitoring.
-Ok to start heparin gtt as plan and transition back to usual dose of Xarelto when safe from surgery standpoint
-EF 35 to 40% by echo in September and he does not examine in acute HF. Outpatient dose of Lasix 40 mg PO daily has been continued for now, if Lasix is held recommend checking weight on a daily basis.
-GDMT includes Coreg 6.25 mg BID and dose has been continued.
-Lisinopril was stopped in the past due to SERAFIN with previous nephrectomy
Progress Note - Airset Molder
Subjective
Date of Service: April 18, 2025
No acute overnight events. Patient tells me that he had nausea/dry heaving but is feeling better currently. Out of bed to chair watching the [email or web address] game at the time my evaluation. No chest pain, palpitations, shortness of breath/dyspnea,
PND/orthopnea or lower extremity edema.
Objective
Labs:
04/18/25 07:35
Labs
Hgb 11.9 g/dL (13.0-18.0) L 04/18/25 07:35
Hct 35.3 % (39.0-52.0) L 04/18/25 07:35
Plt Count 181 10^3/uL (130-400) 04/18/25 07:35
Sodium 138 mmol/L (135-145) 04/18/25 07:35
Potassium 3.3 mmol/L (3.5-5.1) L 04/18/25 07:35
BUN 18 mg/dl (9-20) 04/18/25 07:35
Creatinine 1.5 mg/dL (0.7-1.3) H 04/18/25 07:35
Glucose 120 mg/dl (70-99) H 04/18/25 07:35
Vital Signs and I&O:
Vital Signs
Temp Pulse Resp BP Pulse Ox
98 F 66 16 174/86 96
04/18/25 15:20 04/18/25 15:20 04/18/25 15:20 04/18/25 15:20 04/18/25 15:20
Vital Signs
Temp Pulse Resp BP Pulse Ox
98 F 66 16 174/86 96
04/18/25 15:20 04/18/25 15:20 04/18/25 15:20 04/18/25 15:20 04/18/25 15:20
Intake & Output
04/16/25 04/17/25 04/18/25 04/19/25
06:59 06:59 06:59 06:59
Intake Total 2260 / 2260 1210 / 1210 1180 / 1180
Balance 2260 / 2260 1210 / 1210 1180 / 1180
Physical Exam
Physical Exam
Gen: NAD, AAOx3
HEENT: NC/AT, sclera anicteric
Neck: No JVD
CV: RRR, NL s1/s2, no M/R/G
Lungs: CTAB
Abd: distended
Ext: No LE edema
Skin: Warm, dry
Neuro: Non-focal
[2025-04-18 17:12] LABS: Hematocrit 38.8 % (39.0-52.0); Hemoglobin 13.7 g/dL (13.0-18.0); Mean Corp Hgb Conc. 35.3 g/dL (33.0-37.0); Mean Corpuscular Volume 87.4 fL (80.0-94.0); Platelet Count 189 10^3/uL (130-400); Red Cell Dist. Width 13.0 % (11.5-14.5)
[2025-04-18] MEDS: LIPITOR 40 MG PO (17:17)
[2025-04-18] MEDS: TYLENOL 650 MG PO (17:17)
[2025-04-18] MEDS: ROCEPHIN 2000 MG IV (17:18)
[2025-04-18] MEDS: STERILE WATER FOR INJECTION 20 ML IV (17:18)
[2025-04-18 18:08] LABS: APTT 25.9 Sec (23.4-35.0)
[2025-04-18 18:15] LABS: Glucose - Point of Care 131 mg/dl (70-99)
[2025-04-18] MEDS: HEPARIN 25000 UNITS/250 ML IV (18:33)
[2025-04-18 20:19] VITALS: BP 144/82
[2025-04-18 23:49] LABS: Glucose - Point of Care 115 mg/dl (70-99)
[2025-04-18 23:57] VITALS: BP 145/73
[2025-04-19] MEDS: TYLENOL 650 MG PO ×5 (00:28→20:19)
[2025-04-19] MEDS: NOVOLOG FLEXPEN-LOW RESISTANCE SC ×2 (00:34→06:16)
[2025-04-19 02:20] LABS: APTT 25.7 Sec (23.4-35.0)
--- NOTE | 2025-04-19 02:26 | PTCARENOTE ---
Patient was difficult stick x2 RNs. VAT was able to draw PTT at 0200, results pending.
[2025-04-19 03:10] VITALS: BP 118/75
[2025-04-19] MEDS: FLAGYL 500 MG 100 IV ×3 (04:17→20:20)
[2025-04-19] MEDS: TYLENOL PO (04:26)
[2025-04-19 06:00] VITALS: BMI 41.0
[2025-04-19 06:15] LABS: Glucose - Point of Care 114 mg/dl (70-99)
[2025-04-19 07:24] VITALS: BMI 41.0
[2025-04-19 07:25] VITALS: BP 164/85
[2025-04-19] MEDS: SYMBICORT 160/4.5 MCG INHALER 2 PUFF INH ×2 (07:40→20:37)
[2025-04-19] MEDS: COREG 6.25 MG PO ×2 (08:52→20:20)
[2025-04-19] MEDS: VISBIOME 1 CAP PO (08:52)
[2025-04-19] MEDS: PROTONIX 40 MG PO (08:52)
[2025-04-19] MEDS: TIKOSYN 250 MCG PO ×2 (08:53→20:19)
[2025-04-19] MEDS: TIKOSYN 125 MCG PO (08:53)
[2025-04-19] MEDS: LASIX 40 MG PO (08:53)
[2025-04-19] MEDS: VITAMIN B-12 1000 MCG PO (08:53)
[2025-04-19 09:22] LABS: Hematocrit 39.3 % (39.0-52.0); Hemoglobin 13.5 g/dL (13.0-18.0); Mean Corp Hgb Conc. 34.4 g/dL (33.0-37.0); Mean Corpuscular Volume 88.7 fL (80.0-94.0); Platelet Count 192 10^3/uL (130-400); Red Cell Dist. Width 13.1 % (11.5-14.5)
[2025-04-19 09:30] LABS: APTT 62.9 Sec (23.4-35.0)
[2025-04-19 09:58] LABS: Blood Urea Nitrogen 15 mg/dl (9-20); Calcium 8.5 mg/dl (8.4-10.2); Carbon Dioxide 25 mmol/L (22-30); Chloride 105 mmol/L (98-107); Estimated Creatinine Clearance 50 ml/min; Glucose 135 mg/dl (70-99); Potassium 3.6 mmol/L (3.5-5.1); Sodium 138 mmol/L (135-145); eGFR 54.17
[2025-04-19] MEDS: NORVASC 5 MG PO (10:27)
--- NOTE | 2025-04-19 10:28 | W.PN.UPDATE ---
Update Note
Progress Note Update
Chart reviewed. Communicated with general surgery team regarding management of probable subacute appendicitis with mild ileus which is reportedly improving. Per surgery communication, nonoperative management in the acute setting given improvement
with plan for outpatient appendectomy in a couple of months. Diet being advanced today with probable discharge home tomorrow tomorrow. General surgery has cleared him to start anticoagulation at time of discharge. Stop heparin and resume Xarelto
20 mg nightly at time of discharge. Will arrange for outpatient cardiac follow-up with Dr. Adam's office. Will sign off, recall if needed
[2025-04-19 11:00] VITALS: BP 134/86
--- NOTE | 2025-04-19 11:08 | W.PN.GS2 ---
Addendum entered and electronically signed by Jose Woods MD 04/19/25 13:17:
I saw and examined the patient independently.
The Seed Cleaning Machine Operator's note was reviewed and I agree with the note, assessment and plan except where noted below.
Comment: 84-year-old male presenting with probable appendicitis on therapeutic anticoagulation, nonoperative management for now.
Trial of low residue diet.
Continue antibiotics, anticipate a 2-week course.
Continue heparin drip, would advance to a low residue diet tomorrow if patient progressing well.
Patient to follow-up with Dr. Thurman as an outpatient.
I spent 40 minutes in total for the care of this patient today including direct patient care and counseling, reviewing labs, imaging, coordination of care, as well as documentation.
Original Note:
Today's Communication / Plan
-
LRD
Continue IV abx
Assessment / Plan
-
Assessment: 84-year-old male presenting with probable subacute appendicitis. 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
Given extent of inflammation on CT imaging, following with nonoperative measures at this time for improvement
Continues without leukocytosis or fevers. Pain continues to improve.
Ileus present but resolving
AFVSS
Cr improved
Plan:
Advance to LRD
Acetaminophen ATC, avoid narcotics if able
Trend labs
Continue ceftriaxone/metronidazole coverage for appendicitis
On IV heparin for AC. Anticipate will be able to resume Xarelto tomorrow if tolerating diet and symptoms continue to improve
As pt on Tikosyn will monitor EKG daily for QTc prolongation while on antiemetics, continue tele.
Appreciate cardiology evaluation
IVF/diuretics as per primary team/cards
Will continue to follow
Outpatient follow up to discuss interval appendectomy in approx 2 months after inflammation from this current episode resolved/improved, will likely plan repeat CT imaging in outpatient setting as well
Subjective Data
-
Date of Service: April 19, 2025
Pt seen and examined at bedside with Dr. Woods. Shadi n/v. Passing flatus. Tolerating liquids. Pain much improved. Some low back discomfort on the right intermittently. OOB to chair, more active today.
Objective Data
-
Intake and Output
04/18/25 04/19/25 04/20/25
06:59 06:59 06:59
Intake Total 1180 / 1180 809 / 809 240 / 240
Balance 1180 / 1180 809 / 809 240 / 240
Intake:
Oral fluids 480 / 480 480 / 480 240 / 240
IV fluids (Total) 100 / 100 129 / 129
IV piggybacks 600 / 600 200 / 200
Other:
How many times incontinent 1
MODERATE amount urine
Number of approximated MODERATE 4 3
amounts of urine
Vital Signs
Temp Pulse Resp BP Pulse Ox
97.9 F 67 18 164/85 96
04/19/25 07:25 04/19/25 07:45 04/19/25 07:45 04/19/25 07:25 04/19/25 07:45
Lab Results
04/19/25 09:05
04/19/25 09:05
Calcium 8.5 mg/dl (8.4-10.2) 04/19/25 09:05
Phosphorus 2.7 mg/dl (2.5-4.5) 04/18/25 07:35
Magnesium 1.9 mg/dl (1.6-2.3) 04/18/25 07:35
Total Bilirubin 0.9 mg/dl (0.2-1.3) 04/14/25 04:26
AST 17 U/L (17-59) 04/14/25 04:26
ALT 14 U/L (0-50) 04/14/25 04:26
Alkaline Phosphatase 120 U/L (38-126) 04/14/25 04:26
Total Protein 6.5 g/dl (6.3-8.2) 04/14/25 04:26
Albumin 3.5 g/dl (3.5-5.0) 04/14/25 04:26
Physical Exam
-
NAD AAO x 3
ABD: ND, very minimal tenderness to RLQ (improved), no r/r/g
--- NOTE | 2025-04-19 11:55 | CM ---
CM following re: discharge planning.
Reviewed pt's chart, met with pt.
Per surgery, continue non-operative management with IV antibiotics, continue supportive care. Recommendation for outpatient follow up to discuss interval appendectomy in approx 2 months after inflammation from this current episode resolved
Pt lives with spouse 2SH, 1 step to enter, has 3 supportive children. 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
D/C plan: home with anticipated no needs. Family to transport at discharge.
CM will follow with discharge plan updates as hospitalization progresses
[2025-04-19 12:31] LABS: Glucose - Point of Care 182 mg/dl (70-99)
[2025-04-19] MEDS: NOVOLOG FLEXPEN-LOW RESISTANCE 1 UNITS SC ×2 (12:34→18:24)
[2025-04-19 13:02] LABS: Lyme Antibody Screen, EIA Negative (Negative)
--- NOTE | 2025-04-19 14:24 | W.PN.HOSP.TC ---
Today's Communication/Plan
-
Patient placed on low residue diet and if he is tolerating and no plans for surgery will switch to oral Xarelto.
Cardiology to review EKG
DC plan
Assessment / Plan
Assessment / Plan
Assessment/Plan
84 y/o male with past medical history of CAD, HFrEF, atrial fibrillation on Xarelto (last dose on 04/13/25 evening), hypertension, type 2 diabetes mellitus, hyperlipidemia, CKD 3, COPD, Patton's esophagitis and stomach ulcers, rectal bleeding,
renal cell carcinoma status post right nephrectomy, HEMANTH, diverticulitis, arthritis and pneumonia, presented with abdominal pain. He also had lower back pain mostly on the right that began 2 weeks ago after lifting heavy items at his home, over the
past day it became more severe and migrated to his right lower quadrant. He has been eating and drinking okay, and denied any nausea or vomiting.
#Presentation with abdominal pain
#Acute Appendicitis
-Continue Rocephin and Flagyl
-Surgery onboard, surgery requested cardiac risk stratification given significant cardiac comorbidities, therefore cardiology consulted
-Per surgery team, continue to hold Xarelto until we are assured that nonoperative management will be successful (bridging with Heparin Drip given duration patient is off Xarelto thus far)
- Now diet advanced to LR diet. If he tolerates and no plans for appendectomy will switch to oral AC
#Chronic HFrEF, history of improved EF
-Continue Furosemide
-Strict I's and O's, daily weights
#Paroxysmal atrial fibrillation
-Continue Coreg
-Continue Tikosyn - QTcB is prolonged on today EKG - Will ask cards if dose adjustments needs to be made
-Hold Xarelto for now (patient's last dose of Xarelto was on 04/13/25 evening)
--Continue Heparin Drip and resume AC if ok from surgery
#Type 2 Diabetes Mellitus
-Hold home PO meds
-Accuchecks and Sliding Scale Insulin if needed
#CAD/MT
-Continue current anti-ischemic regimen
#Hypertension
-Continue Norvasc
#Hyperlipidemia
-Statin continued
#Chronic Kidney Disease Stage 3
-Cr 1.3 today last value in the chart was 1.9
-Monitor BMP
#History of renal cell carcinoma status post prior right nephrectomy for cancer
#COPD
-Stable, continue PRN albuterol
#History of Patton's esophagitis and stomach ulcers?
#History of Rectal bleeding?
-Continue home Pantoprazole
-Monitor for any rectal bleeding
-Patient takes Mesalamine at home for presumed IBD? I spoke on 04/15/25 with on-call GI, and okay to hold Mesalamine -- doesn't make a big difference
#HEMANTH
-Continue CPAP
#Morbid Obesity
#Diverticulitis
#Arthritis
#History of pneumonia
#Acute low back pain
#Ambulatory dysfunction due to back pain
Surgery team sent Lyme test per patient's request given recent tick bites; no bulls eye rash.
DVT Prophylaxis: Heparin Drip
Code Status: Full Code
Anticipated Discharge: Within 24 hours
Subjective/Interval History
-
Date of Service: April 19, 2025
Resolved lower abdominal pain. Tolerating diet. No fever or chills.
Denies any shortness of breath. No dizziness.
Objective Data
-
Labs:
Laboratory Results
04/19/25 04/19/25 04/19/25
02:00 09:05 16:30
WBC 5.9
Hgb 13.5
Hct 39.3
Plt Count 192
APTT 25.7 62.9 H Pending
Sodium 138
Potassium 3.6
Chloride 105
Carbon Dioxide 25
BUN 15
Creatinine 1.3
Glucose 135 H
Calcium 8.5
Vital Signs:
Vital Signs
Temp Pulse Resp BP Pulse Ox
97.9 F 72 16 134/86 97
04/19/25 11:00 04/19/25 11:00 04/19/25 11:00 04/19/25 11:00 04/19/25 11:00
I&O
04/18/25 04/19/25 04/20/25
06:59 06:59 06:59
Intake Total 1180 / 1180 809 / 809 240 / 240
Balance 1180 / 1180 809 / 809 240 / 240
Physical Exam
-
General: No Apparent Distress
Respiratory: Non Labored Respirations; Negative Accessory Resp Muscle Use
Cardiac: Regular Rhythm and S1/S2; Negative Tachycardic
GI: Soft and Nontender
Neuro: AO x 3
Psych: Calm
Data Reviewed
-
Medical Tests (Nuc Med, Echo etc): Image personally visualized and interpreted (ekg) and Discussed with Physician
Labs: Labs Reviewed by me
--- NOTE | 2025-04-19 14:47 | W.PN.UPDATE ---
Addendum entered and electronically signed by Palomo Parada MD 04/19/25 14:50:
Correction: Admission dose of dofetilide was 375 mcg twice daily, so we will reduce to 250 mcg twice daily
Original Note:
Update Note
Progress Note Update
Patient with EKG today that showed QTc of 548 but with underlying left bundle.
Likely okay, but will reduce dofetilide back to 125 mcg twice daily as it was on admission.
Will follow ECG.
Patient back on telemetry.
[2025-04-19] MEDS: ROCEPHIN 2000 MG IV (14:58)
[2025-04-19] MEDS: STERILE WATER FOR INJECTION 20 ML IV (14:58)
[2025-04-19 16:03] VITALS: BP 154/78
[2025-04-19 16:30] VITALS: BP 124/71; PULSE 64
[2025-04-19] MEDS: HEPARIN 25000 UNITS/250 ML IV (16:37)
[2025-04-19 18:16] LABS: Glucose - Point of Care 171 mg/dl (70-99)
[2025-04-19] MEDS: LIPITOR 40 MG PO (18:23)
[2025-04-19 18:28] LABS: APTT 75.6 Sec (23.4-35.0)
[2025-04-19 21:30] LABS: Glucose - Point of Care 140 mg/dl (70-99)
[2025-04-19 23:12] VITALS: BP 135/62
[2025-04-20] MEDS: TYLENOL PO ×2 (00:28→04:51)
[2025-04-20 00:39] LABS: APTT 134.4 Sec (23.4-35.0)
[2025-04-20] MEDS: FLAGYL 500 MG 100 IV (04:51)
[2025-04-20 06:00] VITALS: BMI 41.2
[2025-04-20 08:05] VITALS: BP 152/72
[2025-04-20] MEDS: TIKOSYN 250 MCG PO (08:05)
[2025-04-20] MEDS: SYMBICORT 160/4.5 MCG INHALER 2 PUFF INH (08:05)
[2025-04-20] MEDS: PROTONIX 40 MG PO (08:05)
[2025-04-20] MEDS: VITAMIN B-12 1000 MCG PO (08:05)
[2025-04-20] MEDS: TYLENOL 650 MG PO ×3 (08:05→17:35)
[2025-04-20] MEDS: VISBIOME 1 CAP PO (08:06)
[2025-04-20] MEDS: COREG 6.25 MG PO (08:06)
[2025-04-20] MEDS: NORVASC 5 MG PO (08:06)
[2025-04-20] MEDS: LASIX 40 MG PO (08:06)
[2025-04-20] MEDS: KCL 20 MEQ PO (08:06)
[2025-04-20 08:13] LABS: Glucose - Point of Care 158 mg/dl (70-99)
[2025-04-20] MEDS: NOVOLOG FLEXPEN-LOW RESISTANCE 1 UNITS SC ×2 (08:15→13:13)
[2025-04-20 08:22] LABS: Hematocrit 39.7 % (39.0-52.0); Hemoglobin 13.7 g/dL (13.0-18.0); Mean Corp Hgb Conc. 34.5 g/dL (33.0-37.0); Mean Corpuscular Volume 89.6 fL (80.0-94.0); Platelet Count 188 10^3/uL (130-400); Red Cell Dist. Width 13.3 % (11.5-14.5)
[2025-04-20 08:39] LABS: APTT 90.7 Sec (23.4-35.0)
--- NOTE | 2025-04-20 09:42 | W.PN.GS2 ---
Today's Communication / Plan
-
-- Abx: Ceftriaxone/Metronidazole, plan for total 10-14 day treatment as outpatient
-- OK to transition to PO anticoagulation from surgical perspective
-- F/u with Dr. Thurman in 2 weeks
Assessment / Plan
-
Assessment: 84-year-old male presenting with acute appendicitis. 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
Given extent of inflammation on CT imaging, following with nonoperative measures at this time for improvement
AVSS
WBC normal
Clinical improvement on antibiotics. Recommend total antibiotic treatment of 10 to 14 days. Will need outpatient follow-up to discuss interval appendectomy.
Plan:
-- LRD
-- Pain control: Tylenol
-- Abx: Ceftriaxone/Metronidazole, plan for total 10-14 day treatment as outpatient
-- OK to transition to PO anticoagulation from surgical perspective
-- F/u with Dr. Thurman in 2 weeks
Outpatient follow up to discuss interval appendectomy approx 2 months after inflammation from this current episode resolved/improved, will likely plan repeat CT imaging in outpatient setting as well
Subjective Data
-
Date of Service: April 20, 2025
Feels improved. Denies any abdominal pain. Does report some more chronic back pain. No nausea or vomiting. Passing flatus and stools. Afebrile.
Objective Data
-
Intake and Output
04/19/25 04/20/25 04/21/25
06:59 06:59 06:59
Intake Total 809 / 809 790 / 790
Balance 809 / 809 790 / 790
Intake:
Oral fluids 480 / 480 440 / 440
IV fluids (Total) 129 / 129 150 / 150
IV piggybacks 200 / 200 200 / 200
Other:
How many times incontinent 1
MODERATE amount urine
Number of approximated MODERATE 3 3
amounts of urine
Vital Signs
Temp Pulse Resp BP Pulse Ox
98.3 F 61 16 152/72 96
04/20/25 08:05 04/20/25 08:17 04/20/25 08:17 04/20/25 08:05 04/20/25 08:17
Lab Results
04/20/25 08:08
04/19/25 09:05
Calcium 8.5 mg/dl (8.4-10.2) 04/19/25 09:05
Phosphorus 2.7 mg/dl (2.5-4.5) 04/18/25 07:35
Magnesium 1.9 mg/dl (1.6-2.3) 04/18/25 07:35
Total Bilirubin 0.9 mg/dl (0.2-1.3) 04/14/25 04:26
AST 17 U/L (17-59) 04/14/25 04:26
ALT 14 U/L (0-50) 04/14/25 04:26
Alkaline Phosphatase 120 U/L (38-126) 04/14/25 04:26
Total Protein 6.5 g/dl (6.3-8.2) 04/14/25 04:26
Albumin 3.5 g/dl (3.5-5.0) 04/14/25 04:26
Physical Exam
-
Gen: NAD
Abd: soft, NT, ND, non-peritoneal
Patient has a navarro catheter: No
Patient has a central line: No
--- NOTE | 2025-04-20 10:06 | VATNOTE ---
Right hand metacarpal Intima #22 IV access bloody at the insertion site. Dressing needs to be changed. Pt. refusing dressing change at this time. Stated 'I'm going home today'.
--- NOTE | 2025-04-20 11:38 | CM ---
CM reviewed pt with attending- ready for dc today
Bedside meeting with pt
Per PT eval, no recs on dc
Plan for home no needs- pt in agreement
IMM verbally reviewed- copy provided bedside
Pt will call spouse for ride home
Discharge Disposition- home, no needs, family transport
[2025-04-20 12:01] VITALS: BP 134/78
--- NOTE | 2025-04-20 12:16 | W.PN.UPDATE ---
Addendum entered and electronically signed by Olive Aguirre PA-C 04/20/25 14:30:
Case reviewed with EP and they would like to continue Tikosyn 375 mcg q 12 hours. Prolonged QTc happened in the setting of hypokalemia. KCl has been restarted. Will arrange for office ECG appt in addition to the Dr. Adam appt scheduled on
06/09/25.
Original Note:
Update Note
Progress Note Update
Spoke with hospitalist regarding patient's Tikosyn dose. Tikosyn yesterday was reduced from 375 mcg twice daily to 250 mcg twice daily for prolonged QTc. QTc today improved; lab work yesterday with improved potassium. Will continue this current
dose and arrange for patient to return to the office in 1 week for an EKG. He should also have basic metabolic profile including magnesium in 1 week. Outpatient cardiac follow-up to be arranged.
[2025-04-20 12:21] LABS: Glucose - Point of Care 169 mg/dl (70-99)
[2025-04-20] MEDS: FLAGYL 500 MG PO (13:14)
[2025-04-20] MEDS: HEPARIN 25000 UNITS/250 ML IV (13:20)
--- NOTE | 2025-04-20 13:43 | W.DCSUMMARY ---
Discharge Summary
Discharge Data
Date of Admission: 04/14/25
Date of Discharge: 04/20/25
-
Pending Results: No
Hospital Course
Primary diagnosis:
Acute appendicitis
Secondary diagnosis:
Chronic heart failure with reduced EF
Paroxysmal fibrillation
Diabetes mellitus type 2
History of coronary disease
Chronic kidney disease stage III
Hyperlipidemia
Primary hypertension
History of chronic obstructive pulmonary disease
Hospital course:
Patient presented with acute right lower quadrant abdominal pain and diagnosed to acute appendicitis. CT showed Acute appendicitis. No evidence for perforation or periappendiceal abscess. Reactive wall thickening of the adjacent terminal
ileum.Given extent of inflammation on CT imaging, following with nonoperative measures at this time for improvement. His abdominal pain resolved. He was tolerating diet. His white count normalized. Plan was to switch to oral cefdinir and Flagyl
and completed 14-day course of antibiotics in total. He will follow-up with general surgery for interval appendectomy.
No other changes were made to his medication regimen.
Today he is without any abdominal pain. Tolerating diet. No fever or chills. Afebrile. Pulse 61 this morning. Sinus rhythm on the monitor. Blood pressure 1 34/78. Abdomen was soft without tenderness.
Patient medically stable for discharge with outpatient follow-up.
Consultants on board:
General Surgery-Trae Ramos
Cardiology-García Conway
Discharge Plan
-
Patient Disposition: Home (Routine Discharge)
Discharge Diagnosis/Procedures: Acute appendicitis-nonsurgical treatment with antibiotics
Diet: As tolerated and Low Residue
Additional Diets: low residue diet for a week and resume regular diet
Activity: As tolerated
Driving Restrictions: Not until seen by your Dr
Bathing Restrictions: None
Referrals:
Macy Spring DO [Family Provider, Internal Medicine] - in less than 1 week
Trae Thurman MD [Active, Surgical] - in two weeks
Prescriptions:
New
metronidazole 500 mg Tablet
500 mg PO Q8H Qty: 27 0RF
cefdinir 300 mg capsule
300 mg PO BID Qty: 18 0RF
Continued
atorvastatin 40 MG tablet
40 mg PO QPM
Xarelto 20 MG tablet
20 mg PO QPM
mesalamine [Apriso] 0.375 GM capsule,extended release 24hr
0.75 g PO DAILY
pantoprazole 40 MG tablet,delayed release (DR/EC)
40 mg PO DAILY
potassium chloride 10 MEQ tablet,ER particles/crystals
10 meq PO DAILY
dofetilide 250 MCG capsule
250 mcg PO BID
Rx Instructions:
Take w/ 125mcg= 375mcg
dofetilide 125 MCG capsule
125 mcg PO BID
Rx Instructions:
Taken w/ 250mcg= 375mcg
furosemide 40 mg tablet
40 mg PO DAILY
carvedilol 6.25 mg tablet
6.25 mg PO BID
glipizide 5 mg Tablet
5 mg PO DAILY
Tradjenta 5 mg Tablet
5 mg PO DAILY
amlodipine 5 mg tablet
5 mg PO DAILY
cyanocobalamin (vitamin B-12) 1,000 mcg Tablet
1,000 mcg PO DAILY
coQ10 (ubiquinol) 100 mg Capsule
100 mg PO DAILY
fluticasone furoate-vilanterol [Breo Ellipta] 100-25 mcg/dose blister with device
1 inh INHALATION R DAILY
albuterol sulfate 90 mcg/actuation HFA aerosol inhaler
2 puff inhalation R Q6HPRN PRN (Reason: shortness of breath or wheezing)
Discharge Orders:
Discharge Patient (As Directed); Ordered 04/20/25
Ordered By: Jamal Blanca
Discharge Date and Time
Print Language: MALTESE
[2025-04-20 14:42] LABS: APTT 78.6 Sec (23.4-35.0)
[2025-04-20] MEDS: STERILE WATER FOR INJECTION 20 ML IV (14:51)
[2025-04-20] MEDS: ROCEPHIN 2000 MG IV (14:52)
[2025-04-20 15:06] VITALS: BP 127/72; PULSE 66; O2SAT 97
[2025-04-20 15:20] VITALS: BP 117/72
[2025-04-20] MEDS: LIPITOR 40 MG PO (17:35)
[2025-04-20] MEDS: XARELTO 20 MG PO (17:35)
== END 2025-04-20 18:34 | disposition home or self-care (01) | DRG 394 ==
LOC: 2 SOUTH 13:52
PROVIDERS: Nuclear Medicine Nuclear Cardiology; Physician Assistant; Registered Nurse; Student in an Organized Health Care Education/Training Program; ADMITTING PHYSICIAN Hospitalist; ATTENDING PHYSICIAN Internal Medicine; EMERGENCY PHYSICIAN Emergency Medicine; FAMILY PHYSICIAN Internal Medicine; OTHER PHYSICIAN Internal Medicine Cardiovascular Disease; OTHER PHYSICIAN Surgery
DX: K35.80 Unspecified acute appendicitis (principal); I13.0 Hypertensive heart and chronic kidney disease with heart failure and stage 1 through stage 4 chronic kidney disease, or unspecified chronic kidney disease; I50.22 Chronic systolic (congestive) heart failure; Z68.41 Body mass index [BMI] 40.0-44.9, adult; I42.9 Cardiomyopathy, unspecified; N18.30 Chronic kidney disease, stage 3 unspecified; E11.22 Type 2 diabetes mellitus with diabetic chronic kidney disease; E78.00 Pure hypercholesterolemia, unspecified; J44.9 Chronic obstructive pulmonary disease, unspecified; I25.10 Atherosclerotic heart disease of native coronary artery without angina pectoris; Z87.11 Personal history of peptic ulcer disease; I48.0 Paroxysmal atrial fibrillation; Z79.01 Long term (current) use of anticoagulants; Z85.528 Personal history of other malignant neoplasm of kidney; G47.33 Obstructive sleep apnea (adult) (pediatric); Z90.5 Acquired absence of kidney; Z88.0 Allergy status to penicillin; I25.2 Old myocardial infarction; Z87.01 Personal history of pneumonia (recurrent); E66.01 Morbid (severe) obesity due to excess calories; I44.7 Left bundle-branch block, unspecified; K21.9 Gastro-esophageal reflux disease without esophagitis; Z79.899 Other long term (current) drug therapy; Z91.041 Radiographic dye allergy status; Z79.51 Long term (current) use of inhaled steroids; Z79.84 Long term (current) use of oral hypoglycemic drugs; Z91.199 Patient's noncompliance with other medical treatment and regimen due to unspecified reason
CPT/HCPCS: 70450; 71046; 74177; 80048; 80053; 81003; 81015; 82962; 83735; 83880; 84100; 85025; 85027; 85730; 86140; 86618; 93005; 94640; 96374; 96375; 97162; 97166; 99285; Q9967

== ENCOUNTER 2025-05-19 07:34 | Outpatient (RCR) | payer MEDICARE, OTHER, SELFPAY ==
[2025-05-19 08:04] VITALS: BP 145/82
[2025-05-19] MEDS: SODIUM BICARBONATE 1150 MEQ IV (08:50)
== END 2025-05-21 23:59 | disposition home or self-care (01) ==
LOC: OID 07:34
PROVIDERS: ATTENDING PHYSICIAN Surgery
DX: K35.32 Acute appendicitis with perforation, localized peritonitis, and gangrene, without abscess (principal)
CPT/HCPCS: 74177; 96365; 96366; Q9967

== ENCOUNTER 2025-06-03 21:25 | Inpatient (IN) | payer MEDICARE, OTHER, SELFPAY ==
[2025-06-03 17:56] VITALS: BP 166/86
--- NOTE | 2025-06-03 18:48 | ED.GENMED ---
History of Present Illness
General
Chief Complaint: Abdominal Pain
Source: patient
Exam Limitations: none
Time Seen by Provider: 06/03/25 18:09
Nursing documentation reviewed up to this point in time: agreed with
History of Present Illness
History of Present Illness:
84-year-old male with past medical history as noted presents to the ER for evaluation of abdominal pain. Of note patient was admitted to this hospital 04/14 until 04/20 with abdominal pain found to have acute appendicitis. He was seen in
consultation with general surgery and it was felt that due to inflammation of adjacent bowel he should be treated with antibiotics and plan was for delayed appendectomy in 2 months. He says that after antibiotic treatment his symptoms had
completely resolved and in fact had a follow-up CT in late April that showed improvement of appendiceal inflammation. He says that yesterday his abdominal pain returned in the right lower quadrant and has been constant and worse today. He says
pain is worse with movement and with palpation. No relieving factors noted. No nausea or vomiting this time. He denies any diarrhea or constipation. No urinary symptoms. No fever or chills. He denies any other acute complaints.
Past History
Past History
ED Past Medical History: Arrthythmia (Atrial fib), Asthma, CAD, Cancer (renal cell carcinoma on the right), CHF, COPD, HTN, Hypercholesterolemia, NIDDM, ND, Other (Patton's esophagitis, rectal bleeding) and Other (obstructive Sleep apnea,
pneumonia, edema, diverticulitis, stomach ulcers, arthritis, PNA); Negative Renal failure (stage III a)
ED Past Surgical History: Cardiac (PTCA, cardioversion 2019), Tonsilectomy, Urological (right nephrectomy secondary to renal cell carcinoma) and Other (rectal Fistula surgery)
Social History
Tobacco: Non-smoker
Alcohol: None
Drug: None
Personal:
Living: with family
Employment: Retired
Family History
Family History: Other
Review of Systems
Review of Systems
All Other Systems: ROS reviewed and negative except as documented in HPI and ROS
Constitutional: Denies fever
Respiratory: Denies trouble breathing
Cardiac: Denies chest pain
ABD/GI: Reports abdominal pain; Denies nausea, vomiting or diarrhea
: Denies dysuria or flank pain
Musculoskeletal: Denies neck pain or back pain
Neurological: Denies headache
Phy Exam
Physical Exam
Physical Exam:
General: Awake, alert; no acute distress
Head: Normocephalic, atraumatic
Eyes: Conjunctiva normal, sclera anicteric
Throat: Airway intact, handling secretions
Neck: Trachea midline
Lungs: Clear to auscultation bilaterally, no wheezing, rales, rhonchi
Heart: Regular rate and rhythm, no murmurs, gallops, or rubs
Abd: Soft, non distended, tender to palpation in the right lower quadrant with voluntary guarding; there is a soft umbilical hernia easily reducible
Neuro: Grossly intact
Skin: no rash in area of concern
Extremities: Warm and well-perfused
Scores
Heart Failure Risk
Heart Failure Risk Score: Not Applicable
Heart Score for Chest Pain Patients
STEMI patient?: Not applicable
Withdrawal Assessment of Alcohol
Withdrawal Assessment Completed?: Not applicable
Sepsis
Sepsis Screening
Sepsis Assessment: Sepsis Ruled Out
Sepsis Screen
Sepsis Screen: Sepsis Ruled Out
Date: 06/03/25
Time: 20:06
Course
Orders/Labs/Results
Orders:
Orders
06/03/25 18:10
Iohexol [Omnipaque] See Protocol PO NOW STA
06/03/25 18:45
Blood Culture Q30M
MELISSA Source: Blood/Venous
Specimen Description:
06/03/25 18:48
SURGICAL CONSULT Urgent
Consulting Provider: Jose Woods
Was physician already notified: Yes
06/03/25 18:54
CefTRIAXone [Rocephin] 1,000 mg IV NOW STA
MetroNIDAZOLE 500 MG/100 ML [Flagyl 500 mg] 100 ml IV NOW
06/03/25 19:00
0.9% Sodium Chloride 1000 ml [Nss] 1,000 ml IV 75 mls/hr
06/03/25 19:42
Add On- LAB Urgent
Tests Added?: ESR, CRP
06/03/25 19:44
C-Reactive Protein Urgent
Comment: ADD ON
Complete Blood Count/With Diff Urgent
Comprehensive Metabolic Panel Urgent
Erythrocyte Sed Rate Urgent
Comment: ADD ON
Lactate Level [Lactic Acid] Urgent
Blood Culture Q30M
MELISSA Source: Blood/Venous
Specimen Description:
06/03/25 19:56
HYDROmorphone [Dilaudid] 0.5 mg IV NOW STA
Abnormal Lab Results
06/03/25
19:44
RBC 3.96 L 10^6/uL
(4.70-6.10)
Hgb 12.1 L g/dL
(13.0-18.0)
Hct 35.5 L %
(39.0-52.0)
Abs Immat Gran (auto) 0.1 H 10^3/uL
(0-0.05)
Absolute Neuts (auto) 7.3 H 10^3/uL
(1.4-6.5)
Absolute Lymphs (auto) 0.8 L 10^3/uL
(1.2-3.4)
Absolute Monos (auto) 0.8 H 10^3/uL
(0.1-0.6)
Neutrophils % 78.6 H %
(42.2-75.2)
Lymphocytes % 8.6 L %
(20.5-51.1)
06/03/25 19:44
Vital Signs
Initial and Last Documented VS:
Initial Vital Signs
Temp Pulse Resp BP Pulse Ox
36.6 C 77 16 166/86 96
06/03/25 17:56 06/03/25 17:56 06/03/25 17:56 06/03/25 17:56 06/03/25 17:56
Last Documented Vital Signs
Temp Pulse Resp BP Pulse Ox
36.6 C 75 20 156/72 94
06/03/25 19:02 06/03/25 19:02 06/03/25 19:02 06/03/25 19:02 06/03/25 19:02
MDM/Problems Addressed
Differential Diagnosis Includes:
Appendicitis, ileitis, abscess
MDM/Problems Addressed:
84-year-old male with history as noted including recent hospitalization for appendicitis that was treated with antibiotics with plan for delayed surgical intervention presents to the ER with recurrence of abdominal pain similar to his recent
appendicitis. He says symptoms had completely resolved until yesterday. He is hypertensive but has otherwise normal vitals. His physical exam is as above. Plan to place an IV and check labs and urinalysis. Plan was for repeat CT scan for
further assessment of his appendix but patient is adamant that he does not want another CT scan as he has had multiple CTs recently. I explained to him that especially if there is potential need for operative intervention imaging may be necessary
but he declined CT. I did discuss the case with general surgery for an assessment�plan for IV antibiotics, IV fluids, n.p.o. and they will evaluate. Patient to be admitted to the hospitalist service pending initial labs.
After my initial discussion with the general surgeon, general surgeon requested a CT scan and I again reiterated with the patient that this was their desire to reassess the area of previous infection. I explained that not performing this study
could delay care/worsen outcome but patient is adamant that he does not want to have another CT at this time. Will proceed with IV antibiotics and admission as planned above.
*Radiology
Radiology exam reviewed: radiology read reviewed (Reviewed prior radiology reports)
*Pulse Oximetry
SaO2: 96
Oxygen Mode of Delivery: Room air
Patient hypoxic: no (96%)
*Critical Care Note
Total Time (30-74mins, 75-104mins- exclusive of procedures): Not Applicable
Data Reviewed
Review of Other/Old Records Reveals: Labs, Records and Discharge Summary
Source: patient, records and spouse
Further Testing Considered But Not Given:
Recommended CT as above but patient declined
Patient Management
Discussion with other providers: Hospitalist (Discussed with hospitalist) and Plumbing Warehouse Helper (Discussed with general surgeon)
Escalation/DeEscalation of care consider admission/obs:
Admission indicated
ED Attending Note
-
Portions of this chart may have been created with voice recognition software.� Occasional wrong word or��sound alike� substitutions may have occurred due to the inherent limitations of voice recognition software.
Discharge Plan
Departure
Patient Disposition: Admit
Date of Disposition: 06/03/25
Time of Disposition: 20:06
Admit to doctor: Rasta
Presentation/result/management discussed w/ accepting MD/DO: Hospitalist
Discharge Problem:
Acute appendicitis
Prescriptions:
No Action
atorvastatin 40 MG tablet
40 mg PO QPM
Xarelto 20 MG tablet
20 mg PO QPM
mesalamine [Apriso] 0.375 GM capsule,extended release 24hr
0.75 g PO DAILY
pantoprazole 40 MG tablet,delayed release (DR/EC)
40 mg PO DAILY
potassium chloride 10 MEQ tablet,ER particles/crystals
10 meq PO DAILY
dofetilide 250 MCG capsule
250 mcg PO BID
Rx Instructions:
Take w/ 125mcg= 375mcg
dofetilide 125 MCG capsule
125 mcg PO BID
Rx Instructions:
Taken w/ 250mcg= 375mcg
furosemide 40 mg tablet
40 mg PO DAILY
carvedilol 6.25 mg tablet
6.25 mg PO BID
glipizide 5 mg Tablet
5 mg PO DAILY
Tradjenta 5 mg Tablet
5 mg PO DAILY
amlodipine 5 mg tablet
5 mg PO DAILY
cyanocobalamin (vitamin B-12) 1,000 mcg Tablet
1,000 mcg PO DAILY
coQ10 (ubiquinol) 100 mg Capsule
100 mg PO DAILY
fluticasone furoate-vilanterol [Breo Ellipta] 100-25 mcg/dose blister with device
1 inh INHALATION R DAILY
albuterol sulfate 90 mcg/actuation HFA aerosol inhaler
2 puff inhalation R Q6HPRN PRN (Reason: shortness of breath or wheezing)
Interventions
Interventions:
*Risk Screen - Suicide Last Done: 06/03/25 17:56
*General Assessment Last Done: 06/03/25 18:12
*Neglect/Abuse Screening Last Done: 06/03/25 17:56
*ED- Fall Risk Assessment Last Done: 06/03/25 19:24
*ED COVID-19 Vaccine History Last Done: 06/03/25 19:24
*ED Influenza Vaccine History Last Done: 06/03/25 19:24
FW-Uvtfsy-Tgazgnqury Assessment Last Done: 06/03/25 18:12
Discharge Date and Time
Print Language: [place]LAND[place]
[2025-06-03 19:02] VITALS: BP 156/72
[2025-06-03 19:24] VITALS: BMI 40.9
[2025-06-03] MEDS: ROCEPHIN 1000 MG IV (19:35)
[2025-06-03] MEDS: FLAGYL 500 MG 100 IV (19:36)
[2025-06-03] MEDS: NSS 1000 IV (19:36)
[2025-06-03 20:00] LABS: Hematocrit 35.5 % (39.0-52.0); Hemoglobin 12.1 g/dL (13.0-18.0); Mean Corp Hgb Conc. 34.1 g/dL (33.0-37.0); Mean Corpuscular Volume 89.6 fL (80.0-94.0); Nucleated Red Blood Cells % 0 % (-); Platelet Count 179 10^3/uL (130-400); Red Cell Dist. Width 14.0 % (11.5-14.5)
[2025-06-03 20:09] LABS: ALT (SGPT) 22 U/L (0-50); AST (SGOT) 19 U/L (17-59); Albumin 3.6 g/dl (3.5-5.0); Alkaline Phosphatase 119 U/L (38-126); Blood Urea Nitrogen 30 mg/dl (9-20); Calcium 8.7 mg/dl (8.4-10.2); Carbon Dioxide 28 mmol/L (22-30); Chloride 105 mmol/L (98-107); Estimated Creatinine Clearance 47 ml/min; Glucose 112 mg/dl (70-99); Potassium 4.0 mmol/L (3.5-5.1); Sodium 137 mmol/L (135-145); Total Protein 6.7 g/dl (6.3-8.2); eGFR 45.62
[2025-06-03] MEDS: DILAUDID 0.5 MG IV (20:10)
[2025-06-03 20:12] LABS: C-Reactive Protein 30.00 mg/L (0.0-10.00)
[2025-06-03 21:01] VITALS: BP 147/64
--- NOTE | 2025-06-03 21:03 | HPS.HSE ---
Addendum entered and electronically signed by Shoaib Magdaleno DO 06/03/25 21:55:
Patient seen and examined independently. Agree with findings and plan as set forth by Coty Aguero PA-C.
Patient is an 84y M with PMH significant for ASCVD, CHF, A-Fib and CKD who presents to ED complaining of abdominal pain for the past 24 hours. Patient was admitted to in March with similar symptoms and found to have appendiceal
inflammation (and adjacent colonic / ileum inflammation) on CT scan done at that time. Patient was treated with IV abx / conservative management. Patient was feeling well until today when he began to have RLQ abdominal pain again. Patient was
evaluated in the ED. He declines repeat CT scan today. Patient reports associated nausea without emesis and chills. No recorded fever.
Ass:
Appendicitis - Acute on Chronic
ASCVD
Paroxysmal Atrial Fibrillation
Chronic HFrEF
Benign Hypertension
DM-II
CKD III
Microscopic Colitis
Asthma / COPD
HEMANTH on CPAP
Morbid Obesity due to Excess Calories
Plan:
Admit for further evaluation and treatment.
Resume abx treatment with ceftriaxone / metronidazole.
Surgery evaluation for additional recommendations.
? need for repeat imaging - especially given prior evidence of more extensive colon / bowel involvement - though patient declines at present.
Continue current CV med regimen with the exception of Xarelto which will be held pending potential surgery.
Cardiology evaluation for pre-op assessment given multiple cardiac issues / comorbidities.
Original Note:
Family Physician
-
Family Physician: Macy Spring
Chief Complaint
-
Abdominal Pain
History of Present Illness
Patient is an 84 y/o male past medical history of CAD, CHF, A-Fib, DM, COPD, HEMANTH and CKD who presents with abdominal pain. Patient was admitted in March with acute appendicitis. CT scan revealed associated reactive bowel wall thickening of the
adjacent terminal ileum, and concern was raised that patient would require ileocecectomy if surgery was performed at that time. Decision was made to treat with antibiotics and have patient return at a later date for appendectomy. Reports he was
has been doing well, until yesterday when the abdominal pain returned. He reports pains has worsened over the coarse of the day. He note pain is localized to the right lower quadrants. He reports associated nausea, and chills.
Medical History
Past Medical History
Past Medical History: Reports Other
Additional Past Medical History:
Coronary Artery Disease
Chronic Heart Failure with Reduced EF
Paroxysmal Atrial Fibrillation
Essential Hypertension
Hyperlipidemia
Diabetes Mellitus
Microscopic Colitis
Asthma/COPD
Obstructive Sleep Apnea
Chronic Kidney Disease
Hx Right Renal Cell Carcinoma s/p Nephrectomy
Past Surgical History: Reports Other
Additional Past Surgical History:
Right Nephrectomy
Rectal Fistula Surgery
Tonsillectomy
Social History
Tobacco: Non-smoker
Alcohol: None
Family History
Family History: Not pertinent
Allergies / Home Medications
Allergies reflects when Allergies were last updated in [facility].
Home Medications with original date entered in [facility]
Allergy/Medication List:
Allergies
Allergy/AdvReac Type Severity Reaction Status Date / Time
grass pollen Allergy Itching Verified 06/03/25 17:56
Iodinated Contrast Media Allergy 'happened Verified 06/03/25 17:56
(Iodinated Contrast- Oral long ago'
and IV Dye)
Penicillins Allergy 'happened Verified 06/03/25 17:56
at least
50 years
ago'
tree and shrub pollen Allergy Itching Verified 06/03/25 17:56
Home Medications
atorvastatin 40 mg tablet 40 mg PO QPM High cholesterol 08/16/14
rivaroxaban 20 mg tablet (Xarelto) 20 mg PO QPM Blood clot prevention/tx 04/16/18
mesalamine 0.375 gram capsule,extended release 24 hr (Apriso) 0.75 g PO DAILY Gastrointestinal issue 08/21/19
pantoprazole 40 mg tablet,delayed release 40 mg PO DAILY Gastrointestinal issue 12/10/19
potassium chloride 10 mEq tablet,extended release(part/cryst) 10 meq PO DAILY ELECTROLYTE REPLETION 01/06/20
dofetilide 250 mcg capsule 250 mcg PO BID Arrhythmia 09/29/21
dofetilide 125 mcg capsule 125 mcg PO BID Arrhythmia 11/27/21
carvedilol 6.25 mg tablet 6.25 mg PO BID Heart Failure 02/13/22
furosemide 40 mg tablet 40 mg PO DAILY Fluid retention/Swelling 02/13/22
amlodipine 5 mg tablet 5 mg PO DAILY Blood Pressure 10/09/23
coQ10 (ubiquinol) 100 mg capsule 50 mg PO DAILY Supplement 10/09/23
cyanocobalamin (vitamin B-12) 1,000 mcg tablet 1,000 mcg PO DAILY Supplement 10/09/23
glipizide 5 mg tablet 5 mg PO DAILY diabetes 10/09/23
linagliptin 5 mg tablet (Tradjenta) 5 mg PO DAILY diabetes 10/09/23
albuterol sulfate 90 mcg/actuation aerosol inhaler 2 puff inhalation R Q6HPRN PRN shortness of breath or wheezing 04/28/24
fluticasone furoate 100 mcg-vilanterol 25 mcg/dose inhalation powder (Breo Ellipta) 1 inh inhalation R DAILY Lung/Breathing Issues 04/28/24
Review of Systems
-
A 12 point ROS was completed and negative except as noted: Yes
Constitutional: Reports Chills; Denies Fever
Respiratory: Denies Cough or Trouble Breathing
Cardiac: Denies Chest Pain or Palpitations
Abdomen/GI: Reports See HPI
Physical Exam
Vital Signs
Vital Signs
Temp Pulse Resp BP Pulse Ox
97.8 F 75 20 156/72 94
06/03/25 19:02 06/03/25 19:02 06/03/25 19:02 06/03/25 19:02 06/03/25 19:02
Physical Exam
General: Comfortable and Conversant
HEENT: Anicteric and Moist mucous membranes
Respiratory: Clear and Non Labored Respirations
Cardiac: S1/S2 and Regular Rhythm
GI: Soft and Tender (Right Lower Quadrant with voluntary guarding)
Musculoskeletal: No Clubbing and No Cyanosis
Skin: Warm and Dry
Neuro: Awake, Alert, Oriented and Nonfocal/grossly intact
Psych: Calm
Laboratory Results
-
06/03/25 19:44
06/03/25 19:44
Laboratory Results
Lactic Acid 1.0 mmol/L (0.7-2.0) 06/03/25 19:44
Total Bilirubin 0.6 mg/dl (0.2-1.3) 06/03/25 19:44
AST 19 U/L (17-59) 06/03/25 19:44
ALT 22 U/L (0-50) 06/03/25 19:44
Alkaline Phosphatase 119 U/L (38-126) 06/03/25 19:44
Data Reviewed
-
Lab Data: Labs Reviewed by me
Old Records: Reviewed
Impression/Plan
-
Acute Appendicitis
-Consult Surgery
-NPO after midnight
-Continue ceftriaxone and metronidazole
Paroxysmal Atrial Fibrillation
-Hold Xarelto for possible OR
-Continue dofetilide
Chronic HFrEF
-Hold Lasix
-Monitor Daily Weights
Essential Hypertension
-Continue amlodipine, carvedilol with hold parameters
Hyperlipidemia
-Continue atorvastatin
Diabetes Mellitus, Type II
-Hold oral meds
-Monitor sugars and continue coverage insulin
CKD Stage III
-Creatinine at baseline
Coronary Artery Disease
-Continue GDMT
Microscopic Colitis
-Hold Apriso
Asthma/COPD
-Continue Breo
Obstructive Sleep Apnea
-Continue CPAP
Morbid Obesity due to Excess Calories
-Affects all aspects of care
Hx Right Renal Cell Carcinoma s/p Nephrectomy
DVT proph: SCDs until able to resume Xarelto
Code Status: Full Code
[2025-06-03 21:30] VITALS: BMI 39.2
--- NOTE | 2025-06-03 21:31 | EDRN ---
all belongings sent with patient to new room on . Wallet in back pocket of marin. All medication sent home with Jean. doe
[2025-06-03 21:40] VITALS: BMI 39.2
--- NOTE | 2025-06-03 21:40 | PTCARENOTE ---
Pt arrived from ED via stretcher at 2140. Pt ambulated to bed w/o difficulty. Admission assessment completed. Pt AAOx4, VSS. court monitor placed on pt per order. IVF infusing per order. Pt NPO at midnight d/t possible OR for appy tomorrow. TT
Jacky Villegas for cardiology consult. Pt oriented to room, call garner within reach, bed locked and in lowest position. Reviewed plan of care with pt and answered all questions. Care ongoing.
[2025-06-03 22:00] VITALS: BP 128/72
[2025-06-03 22:21] LABS: Glucose - Point of Care 149 mg/dl (70-99)
[2025-06-03 22:30] VITALS: BP 128/72
[2025-06-03] MEDS: TIKOSYN 375 MCG PO (22:40)
[2025-06-04] VITALS (13 sets, daily range): BP systolic 105–173; BP diastolic 56–94; BMI 39.4
--- NOTE | 2025-06-04 00:56 | PTCARENOTE ---
Pt had 11 beat run of v tach. Pt resting comfortable in bed. JIMI Leong notified and aware. Care ongoing.
[2025-06-04] MEDS: FLAGYL 500 MG 100 IV ×3 (03:09→20:23)
[2025-06-04] MEDS: DILAUDID 0.5 MG IV ×2 (03:27→11:09)
[2025-06-04 07:17] LABS: Hematocrit 36.0 % (39.0-52.0); Hemoglobin 11.6 g/dL (13.0-18.0); Mean Corp Hgb Conc. 32.2 g/dL (33.0-37.0); Mean Corpuscular Volume 96.3 fL (80.0-94.0); Platelet Count 171 10^3/uL (130-400); Red Cell Dist. Width 14.1 % (11.5-14.5)
[2025-06-04 07:44] LABS: Glucose - Point of Care 140 mg/dl (70-99)
[2025-06-04 07:52] LABS: Blood Urea Nitrogen 26 mg/dl (9-20); Calcium 8.2 mg/dl (8.4-10.2); Carbon Dioxide 30 mmol/L (22-30); Chloride 106 mmol/L (98-107); Estimated Creatinine Clearance 49 ml/min; Glucose 122 mg/dl (70-99); Potassium 3.9 mmol/L (3.5-5.1); Sodium 137 mmol/L (135-145); eGFR 49.56
[2025-06-04] MEDS: SYMBICORT 160/4.5 MCG INHALER 2 PUFF INH ×2 (08:04→20:01)
[2025-06-04] MEDS: NORVASC 5 MG PO (08:09)
[2025-06-04] MEDS: COREG 6.25 MG PO ×2 (08:09→20:23)
[2025-06-04] MEDS: TIKOSYN 125 MCG PO ×2 (08:10→20:24)
[2025-06-04] MEDS: TIKOSYN 250 MCG PO ×2 (08:10→20:25)
--- NOTE | 2025-06-04 09:12 | CON.GS ---
Addendum entered and electronically signed by Nicanor Farris MD 06/04/25 09:46:
Patient seen and examined.
Patient is an 84 yo M with a PMH of obesity, GERD/PUD, HTN, HLD, CAD, CHF, A-fib s/p cardioversion (on Xarelto, LD 11/12 PM), COPD, HEMANTH, CKD, and renal cancer s/p RIGHT nephrectomy. Mr. Arenas was recently admitted to from 04/14 to 04/20/2025 for
management of acute appendicitis. He was managed medically with antibiotics at that time with improvement in his symptoms. He had an outpatient CT scan which demonstrated improvement and resolution of his appendicitis. He was planning for a
outpatient colonoscopy and early June. Over the past 24 hours he has had recurrent RLQ abdominal pain. No nausea or vomiting. No fevers or chills. No GI or urinary symptoms. Currently, he has continued discomfort.
Gen: NAD
Abd: soft, tender in RLQ, obese, no diffuse peritonitis, prior incisions well healed
Labs reviewed
Patient is an 84 yo M p/w recurrent acute appendicitis
Discussion with patient regarding options for management. Options include attempted repeat medical management with antibiotics versus appendectomy during this admission. Would recommend a repeat CT scan to better define the degree of appendiceal
inflammation, rule out alternative causes for his symptoms as well as perforation and abscess formation. Mr. Arenas is hesitant in proceeding with CT scan imaging given his history of multiple CT scans for surveillance of RCC at [place]. Vick
discussion had with patient regarding the importance of obtaining this imaging prior to any surgical intervention. Patient ultimately agrees to proceed with CT scan imaging. All questions answered. Dr. Thurman updated.
-- CT Abdomen/Pelvis with PO contrast
-- NPO, IVF
-- Abx: Ceftriaxone and Flagyl
-- Decision on surgical intervention pending imaging findings
Original Note:
Consultation
-
Date/Time Consultation Performed: 06/04/25 0745
Medical History
-
Chief Complaint: RLQ pain
History of Present Illness:
84 yo male with a h/o afib (on Xarelto with LD on 06/02 pm), chf, htn, copd, renal ca s/p right nephrectomy, and recent admission for appendicitis (04/14/25-04/20/25) which was managed with antibiotics given the severity of inflammation. Outpatient CT
on 05/19/25 with interval improvement with plans underway for follow up colonoscopy prior to OR for interval appendectomy. He presents this admission with recurrent RLQ pain and tenderness which began yesterday. He denies nausea, vomiting, fevers or
chills. He is markedly tender on exam to the RLQ with guarding.
Past Medical History
Past Medical History: Arrhythmias (AFib), Asthma, CAD, Cancer (renal cell ca), CHF, COPD, Diverticulitis, HTN, Hypercholesterolemia and Other (PUD, HEMANTH, CKD)
Past Surgical History: Cardiac (ptca, cardioversion 2019), Tonsilectomy, Urological (right nephrectomy) and Other (colonoscopy 2021 (polyps), rectal fistula repair)
Social History
Tobacco: Non-Smoker
Alcohol: None
Personal:
Living: With Family
Employment: Retired
Family History
Family History: Reviewed & Not Pertinent
Allergies / Home Medications
Allergy/AdvReac Type Severity Reaction Status Date / Time
grass pollen Allergy Itching Verified 06/03/25 17:56
Iodinated Contrast Media Allergy 'happened Verified 06/03/25 17:56
(Iodinated Contrast- Oral long ago'
and IV Dye)
Penicillins Allergy 'happened Verified 06/03/25 17:56
at least
50 years
ago'
tree and shrub pollen Allergy Itching Verified 06/03/25 17:56
�Medication �Instructions �Recorded �Confirmed �Type
atorvastatin 40 mg tablet 40 mg PO QPM High cholesterol 08/16/14 06/03/25 History
rivaroxaban 20 mg tablet (Xarelto) 20 mg PO QPM Blood clot 04/16/18 06/03/25 History
prevention/tx
mesalamine 0.375 gram 0.75 g PO DAILY Gastrointestinal 08/21/19 06/03/25 History
capsule,extended release 24 hr issue
(Apriso)
pantoprazole 40 mg tablet,delayed 40 mg PO DAILY Gastrointestinal 12/10/19 06/03/25 History
release issue
potassium chloride 10 mEq 10 meq PO DAILY ELECTROLYTE 01/06/20 06/03/25 History
tablet,extended release(part/cryst) REPLETION
dofetilide 250 mcg capsule 250 mcg PO BID Arrhythmia 09/29/21 06/03/25 History
dofetilide 125 mcg capsule 125 mcg PO BID Arrhythmia 11/27/21 06/03/25 History
carvedilol 6.25 mg tablet 6.25 mg PO BID Heart Failure 02/13/22 06/03/25 History
furosemide 40 mg tablet 40 mg PO DAILY Fluid 02/13/22 06/03/25 History
retention/Swelling
amlodipine 5 mg tablet 5 mg PO DAILY Blood Pressure 10/09/23 06/03/25 History
coQ10 (ubiquinol) 100 mg capsule 50 mg PO DAILY Supplement 10/09/23 06/03/25 History
cyanocobalamin (vitamin B-12) 1,000 mcg PO DAILY Supplement 10/09/23 06/03/25 History
1,000 mcg tablet
glipizide 5 mg tablet 5 mg PO DAILY diabetes 10/09/23 06/03/25 History
linagliptin 5 mg tablet (Tradjenta) 5 mg PO DAILY diabetes 10/09/23 06/03/25 History
albuterol sulfate 90 mcg/actuation 2 puff inhalation R Q6HPRN PRN 04/28/24 06/03/25 History
aerosol inhaler shortness of breath or wheezing
fluticasone furoate 100 1 inh inhalation R DAILY 04/28/24 06/03/25 History
mcg-vilanterol 25 mcg/dose Lung/Breathing Issues
inhalation powder (Breo Ellipta)
Review of Systems
-
History Source: Patient
All other systems: Negative unless noted
A 10 point review of systems was completed, and was negative except as per HPI.
Physical Exam
Vital Signs
Temp Pulse Resp BP Pulse Ox
98.0 F 77 16 157/79 94
06/04/25 07:15 06/04/25 08:09 06/04/25 08:05 06/04/25 08:09 06/04/25 08:05
06/03/25 06/04/25 06/05/25
06:59 06:59 06:59
Actual Weight 117.571 kg
Body Mass Index (BMI) 39.4
Lab Results
06/04/25 06:41
06/04/25 06:41
WBC 7.4 10^3/uL (4.8-10.8) 06/04/25 06:41
Hgb 11.6 g/dL (13.0-18.0) L 06/04/25 06:41
Hct 36.0 % (39.0-52.0) L 06/04/25 06:41
Plt Count 171 10^3/uL (130-400) 06/04/25 06:41
Abs Immat Gran (auto) 0.1 10^3/uL (0-0.05) H 06/03/25 19:44
Neutrophils % 78.6 % (42.2-75.2) H 06/03/25 19:44
Physical Exam
General: Well Developed and Well Nourished
HEENT: Moist Mucous Membranes
GI: Soft, Non Distended, Tender (focal tenderness to RLQ with guarding) and Obese
Skin: Warm and Dry
Neuro: Awake, Alert and AO x 3
Psych: Calm
Data Reviewed
-
CT Scan: Image Personally Visualized and interpreted (05/19/25 and 04/14/25)
Labs: Labs Reviewed by me, Discussed with Physician and Discussed with Patient
Old Records: Reviewed
Assessment / Plan
-
84 yo male with a h/o afib (on Xarelto with LD on 06/02 pm), chf, htn, copd, renal ca s/p right nephrectomy, and recent admission for appendicitis (04/14/25-04/20/25) which was managed with antibiotics given the severity of inflammation. Outpatient CT
on 05/19/25 with interval improvement with plans underway for follow up colonoscopy prior to OR for interval appendectomy. He presents this admission with recurrent RLQ pain and tenderness which began yesterday. AFVSS. No leukocytosis, CRP mildly
elevated. Initially refused CT on presentation given concerns over radiation. After discussion, he is now agreeable to proceed.
Plan:
Check CT abd/pelvis with PO contrast (held IV contrast given IVP dye allergy and elevated Cr in setting of solitary kidney)
NPO and hold AC pending CT results
Continue ABX for presumed recurrent appendicitis
IVF while NPO
Medical management as per hospitalist
Further surgical recs pending imaging
[2025-06-04 09:20] LABS: Glycohemoglobin (HgbA1c) 7.5 % (4.0-5.9)
--- NOTE | 2025-06-04 10:59 | CM ---
CM following re: discharge planning.
Reviewed pt' chart, met with.
Pt is an 84 year old male, admitted with primary dx of Acute Appendicitis. OR today.
Pt reports he lives with spouse 2SH, 1 step to enter, has 3 supportive children. Pt described himself as independent in all areas [employer]. No DME, VN or SNF history.
PT and OT will evaluate the pt after surgery to determine a level of care at discharge.
PCP: Macy Spring
Pharmacy: [facility]
D/C plan: home with anticipated no needs. Spouse to transport at discharge.
CM will follow with discharge plan updates as hospitalization progresses
[2025-06-04] MEDS: NSS 1000 IV (11:08)
[2025-06-04 12:17] LABS: Glucose - Point of Care 127 mg/dl (70-99)
--- NOTE | 2025-06-04 12:48 | W.PN.HOSP.TC ---
Today's Communication/Plan
-
maintain on empiric abx
Await general surgery input
Assessment / Plan
Assessment / Plan
CT a/p
Findings consistent with acute appendicitis. No evidence of perforation nor abscess formation. Significantly progressed.
Mild cardiomegaly. Stable Tiny pericardial effusion. Stable Gallstone versus tiny adjacent stones.. Stable Diverticulosis.. Stable Mild prostate hypertrophy.

Recurrence of acute appendicitis
-CT a/p without IV contrast findings as above
-Continue ceftriaxone and metronidazole
-Gen surg evaluated and will plan OR based on the findings
Paroxysmal Atrial Fibrillation
-Hold Xarelto for possible OR
-Continue dofetilide
-preop EKG showing QTc 503ms with LBBB - chronic findings
Chronic HFrEF
-TTE October 13 with EF 35-40%
-No signs of volume overload
-Hold Lasix
-Monitor Daily Weights and cr
Essential Hypertension
-Continue amlodipine, carvedilol with hold parameters
Hyperlipidemia
-Continue atorvastatin
Diabetes Mellitus, Type II
-Hold oral meds
-Monitor sugars and continue coverage insulin
CKD Stage III
-Creatinine at baseline
Coronary Artery Disease
-Continue GDMT
Microscopic Colitis
-Hold Apriso
Asthma/COPD
-Continue Breo
Obstructive Sleep Apnea
-Continue CPAP
Morbid Obesity due to Excess Calories
-Affects all aspects of care
Hx Right Renal Cell Carcinoma s/p Nephrectomy
DVT proph: SCDs until able to resume Xarelto
Discussed care plan with Gen surgery
Cardiology consultation withheld as patient had a preoperative evaluation for need of appendectomy month before.
Anticipated Discharge: 24 - 48 hours
Subjective/Interval History
-
Date of Service: June 04, 2025
Have some right lower quadrant abdominal tenderness
Denies of any nausea vomiting
Afebrile overnight
Objective Data
-
Labs:
Laboratory Results
06/04/25
06:41
WBC 7.4
Hgb 11.6 L
Hct 36.0 L
Plt Count 171
Sodium 137
Potassium 3.9
Chloride 106
Carbon Dioxide 30
BUN 26 H
Creatinine 1.4 H
Glucose 122 H
Calcium 8.2 L
Vital Signs:
Vital Signs
Temp Pulse Resp BP Pulse Ox
98.2 F 64 18 147/65 95
06/04/25 11:28 06/04/25 11:28 06/04/25 11:28 06/04/25 11:28 06/04/25 11:28
I&O
06/03/25 06/04/25 06/05/25
06:59 06:59 06:59
Intake Total 580 / 580
Balance 580 / 580
Review of Systems
-
Respiratory: Reports No Symptoms
Cardiac: Reports No Symptoms
Abdomen/GI: Reports Abdominal Pain; Denies Nausea or Vomiting
Physical Exam
-
General: Obese
HEENT: Negative Oxygen
Respiratory: Non Labored Respirations
Cardiac: Regular Rhythm and S1/S2; Negative Tachycardic
GI: Soft and Tender (RLQ)
Neuro: AO x 3
Psych: Calm
--- NOTE | 2025-06-04 13:52 | W.IMMPOSTOP ---
Surgical Immed Post Op Note
-
Primary Surgeon: Cuca
Assisting: Gt ANTOINE
Pre-op Diagnosis: Acute appendicitis
Post-op Diagnosis: Same
Procedure Performed: Laparoscopic appendectomy
Anesthesia Type: GETA
Specimen / Cultures: Appendix
Estimated Blood Loss: 20cc
Complications: None immediate
Operative Findings: Inflamed appendix with densely adherent terminal ileum, turbid fluid in the right lower quadrant, no perforation, no erika pus
Tentatively for DC tomorrow, cont abx until DC but no need for home abx
Restart xarelto after 48 hrs (Saturday dieudonne)
updated by phone
--- NOTE | 2025-06-04 13:55 | OR.RPT ---
Operative Report
Operative Report
Primary Surgeon: Cuca
Assisting: Gt ANTOINE
Pre-op Diagnosis: Acute appendicitis
Post-op Diagnosis: Same
Procedure Performed: Laparoscopic appendectomy
Anesthesia Type: GETA
Specimen / Cultures: Appendix
Estimated Blood Loss: 20cc
Complications: None immediate
Operative Findings: Inflamed appendix with densely adherent terminal ileum, turbid fluid in the right lower quadrant, no perforation, no erika pus
Date of Surgery: 06/04/25
Indications: This 84M developed recurrent acute appendicitis. Laparoscopic appendectomy was elected.
Description of procedure: The patient was placed on the operating table in the supine position. General anesthesia was induced. A time-out was completed verifying correct patient, procedure, site, positioning, and special equipment prior to
beginning this procedure. An orogastric tube was placed. The abdomen was prepped and draped in the usual sterile fashion. A stab incision was made in left upper quadrant and the Veress needle was inserted. Proper position was confirmed by aspiration
and saline meniscus test. The abdomen was insufflated with carbon dioxide to a pressure of 12 mmHg. The patient tolerated insufflation well.
A 5mm optical trocar was then inserted at the left lower quadrant. The laparoscope was inserted and the abdomen inspected. No injuries from initial trocar placement or Veress needle insertion were noted. Additional trocars were then inserted in the
following locations: a 12-mm trocar at the umbilicus and a 5-mm trocar midline in the suprapubic space. The abdomen was inspected and no abnormalities were found. The table was placed in the Trendelenburg position with the right side up. The
appendix was adherent to the cecal mesentery and the terminal ileum, it was gently bluntly teased away from these structures. The tip of the appendix was gently grasped with an atraumatic grasper and retracted toward the patient�s feet and abdominal
wall. This maneuver exposed the appendiceal blood supply which was controlled with the Ligasure device. Following this, a laparoscopic linear cutting stapler with a 45mm young load was deployed and used to transect the appendix at its base. The
appendix was placed in an endoscopic retrieval bag, removed through the umbilical port, and passed off the table as a specimen.
We then turned our attention to the staple line, which was noted to be hemostatic. The right lower quadrant and pelvis were thoroughly irrigated with sterile saline and suctioned clear. The inflammatory fat about the appendiceal mesentery was
slowly oozing, this was controlled with cautery and ja powder was deployed for added security. The umbilical trocar site was closed at the fascial level laparoscopically with 2-0 PDS under direct vision. Secondary trocars were removed under
direct vision and noted to be hemostatic. The laparoscope was withdrawn and the abdomen was allowed to collapse. The skin was closed with subcuticular sutures of 4-0 monocryl and topical skin adhesive. The orogastric tube was removed.
The patient tolerated the procedure well and was taken to the postanesthesia care unit in stable condition.
The assistance of Gt ANTOINE was required due to the complexity of the procedure. During the procedure she assisted with retraction, resection, and closure of the wound.
[2025-06-04 14:21] LABS: Glucose - Point of Care 150 mg/dl (70-99)
--- NOTE | 2025-06-04 15:48 | PTCARENOTE ---
Pt arrived 1500 from PACU. Pt Drowsy, and restless. VSS. 95% on 2LO2. 3 lap sites with glue. 1 site covered with gauze and Tegaderm. at bedside
[2025-06-04 16:57] LABS: Glucose - Point of Care 193 mg/dl (70-99)
[2025-06-04] MEDS: LIPITOR 40 MG PO (17:02)
[2025-06-04] MEDS: NOVOLOG FLEXPEN-LOW RESISTANCE 1 UNITS SC (17:16)
[2025-06-04] MEDS: STERILE WATER FOR INJECTION 10 ML IV (20:24)
[2025-06-04] MEDS: ROCEPHIN 1000 MG IV (20:24)
[2025-06-04 21:31] LABS: Glucose - Point of Care 220 mg/dl (70-99)
[2025-06-05 03:15] VITALS: BP 125/60
[2025-06-05] MEDS: FLAGYL 500 MG 100 IV (04:45)
[2025-06-05 05:58] LABS: Hematocrit 37.6 % (39.0-52.0); Hemoglobin 12.1 g/dL (13.0-18.0); Mean Corp Hgb Conc. 32.2 g/dL (33.0-37.0); Mean Corpuscular Volume 96.2 fL (80.0-94.0); Platelet Count 172 10^3/uL (130-400); Red Cell Dist. Width 13.6 % (11.5-14.5)
[2025-06-05 06:00] VITALS: BMI 39.8
[2025-06-05 07:10] VITALS: BP 149/81
[2025-06-05 07:21] LABS: Glucose - Point of Care 188 mg/dl (70-99)
[2025-06-05] MEDS: SYMBICORT 160/4.5 MCG INHALER 2 PUFF INH (08:04)
[2025-06-05 08:34] LABS: Blood Urea Nitrogen 29 mg/dl (9-20); Calcium 7.9 mg/dl (8.4-10.2); Carbon Dioxide 26 mmol/L (22-30); Chloride 107 mmol/L (98-107); Estimated Creatinine Clearance 53 ml/min; Glucose 184 mg/dl (70-99); Potassium 4.2 mmol/L (3.5-5.1); Sodium 140 mmol/L (135-145); eGFR 54.17
[2025-06-05] MEDS: NOVOLOG FLEXPEN-LOW RESISTANCE 1 UNITS SC (08:46)
[2025-06-05] MEDS: TIKOSYN 125 MCG PO (08:47)
[2025-06-05] MEDS: COREG 6.25 MG PO (08:47)
[2025-06-05] MEDS: NORVASC 5 MG PO (08:47)
[2025-06-05] MEDS: TIKOSYN 250 MCG PO (08:48)
--- NOTE | 2025-06-05 09:11 | W.PN.GS2 ---
Addendum entered and electronically signed by Nicanor Farris MD 06/05/25 09:23:
Patient seen and examined.
Presenting pain improved, pain overall well-controlled. No nausea or vomiting. Passing flatus, no BM. Reports issues with pain behind his LEFT ear.
Gen: NAD
HEENT: pain to palpation at angle of mandible, no palpable mass, no overlying skin changes, no pain with opening and closing jaw, no clicking
Abd: soft, mild tenderness, obese, non-peritoneal, incisions c/d/i - no erythema, ecchymosis or drainage
84 yo male presenting with recurrence of appendicitis now POD #1 lap appi
AFVSS
No leukocytosis
Tolerating diet
Plan:
-- Continue ADA diet
-- Pain control: Tylenol and Tramadol
-- Hold Eliquis for 48hours post operatively, OK to resume tomorrow at regular dose and time
-- OOB/Ambulate
-- DC IVF
-- OK to DC antibiotics upon discharge
-- Dispo planning as per primary team
Original Note:
Today's Communication / Plan
-
ADA diet
Assessment / Plan
-
84 yo male presenting with recurrence of appendicitis now POD #1 lap appi
AFVSS
No leukocytosis
Tolerating diet
Plan:
Medical management as per primary team
Continue ADA diet
Hold Eliquis for 48hours post operatively, ok to resume tomorrow at regular dose and time
OOB/Ambulate
D/C IVF
Ok to d/c antibiotics upon discharge
Analgesics prn
Dispo planning as per primary team
Subjective Data
-
Date of Service: June 05, 2025
Pt seen and examined at bedside with Dr. Farris. Denies n/v. Minimal abdominal discomfort. Some discomfort just behind his ear on the left which began prior to OR. Tolerating diet, passing flatus.
Objective Data
-
Intake and Output
06/04/25 06/05/25 06/06/25
06:59 06:59 06:59
Intake Total 580 / 580 1780 / 1780
Output Total 320 / 320
Balance 580 / 580 1460 / 1460
Intake:
Oral fluids 480 / 480 780 / 780
IV fluids (Total) 900 / 900
IV piggybacks 100 / 100 100 / 100
Output:
Urine, Voided 320 / 320
Other:
Number of approximated SMALL 2
amounts of urine
Number of approximated MODERATE 2
amounts of urine
Vital Signs
Temp Pulse Resp BP Pulse Ox
97.5 F 74 16 149/81 94
06/05/25 03:15 06/05/25 08:47 06/05/25 08:06 06/05/25 08:47 06/05/25 08:06
Lab Results
06/05/25 05:26
06/05/25 07:05
Calcium 7.9 mg/dl (8.4-10.2) L 06/05/25 07:05
Total Bilirubin 0.6 mg/dl (0.2-1.3) 06/03/25 19:44
AST 19 U/L (17-59) 06/03/25 19:44
ALT 22 U/L (0-50) 06/03/25 19:44
Alkaline Phosphatase 119 U/L (38-126) 06/03/25 19:44
Total Protein 6.7 g/dl (6.3-8.2) 06/03/25 19:44
Albumin 3.6 g/dl (3.5-5.0) 06/03/25 19:44
Physical Exam
-
Gen: NAD
Abd: soft, minimal incisional tenderness, ND, non-peritoneal
Incisions: Well approximated, intact glue
Patient has a navarro catheter: No
Patient has a central line: No
--- NOTE | 2025-06-05 11:17 | CM ---
CM reviewed chart and noted dc order
Discussed with nursing and independence noted in room
Bedside meeting with pt- he has called spouse for ride home
06/03 IMM remains valid
No dc needs noted
Discharge Disposition- home, no needs- spouse transport
[2025-06-05 12:01] VITALS: BP 146/80
--- NOTE | 2025-06-05 12:16 | W.DCSUMMARY ---
Discharge Summary
Discharge Data
Date of Admission: 06/03/25
Date of Discharge: 06/05/25
-
Pending Results: No
Hospital Course
Discharging Physician : Dr Jorge Marino
Disposition : To home
Primary care physician : Dr Macy Spring
Principal Discharge diagnosis :
Recurrent acute appendicitis
Chronic Discharge diagnosis :
Paroxysmal atrial fibrillation on dofetilide
Chronic systolic congestive heart failure
Essential hypertension
Hyperlipidemia
Type 2 diabetes mellitus
Chronic left bundle branch block
Coronary disease
Chronic kidney disease stage III
Microscopic colitis
Chronic obstructive pulmonary disease
Obstructive sleep apnea
History of right renal cell cancer status post nephrectomy
Physical examination:
HEENT: moist mucus membrane
Abd: N BS, soft, nontender, clean laparoscopy incision
Neuro: No motor or sensory deficits
Ext: No cyanosis, Clubbing, edema
Hospital Course :
Patient is 84-year-old male with above-mentioned past medical history came to ER with new right lower quadrant abdominal pain and associated nausea. Patient was diagnosed for acute appendicitis months back and was managed conservatively with
antibiotics. Clinically patient was suspected to have a repeat episode and a CT abdomen pelvis was recommended although patient was hesitant to have reimaging. General surgery was involved in care and after discussion patient agreeable to have CT
scan which showed recurrence of acute appendicitis. Patient was taken to the OR with uneventful laparoscopic appendectomy. Post procedure general surgery cleared patient to be discharged home off of antibiotics. Patient anticoagulation can be
resumed day after discharge. Patient to follow-up with general surgeon in the office.
Important imaging findings :
None
Procedure findings :
None
Discharge Plan
-
Patient Disposition: Home (Routine Discharge)
Discharge Diagnosis/Procedures: Acute appendicitis
Condition: Fair
Diet: As tolerated
Activity: No strenuous activity
Additional Activity: Do not lift over 20lbs for the next 2-3 weeks
Bathing Restrictions: OK to Shower
Wound Care: Allow glue to flake off your incisions on its own over the next 2-3 weeks
Activity Restrictions/Additional Instructions:
Call your surgeon if you have fever >100.5, nausea with vomiting or worsening pain.
Referrals:
Macy Spring DO [Family Provider, Internal Medicine] - in one week
Trae Thurman MD [Active, Surgical] - in two to three weeks
Prescriptions:
New
tramadol 25 mg tablet
25 mg PO Q6H PRN (Reason: mod sev pain) Qty: 10 0RF
Continued
atorvastatin 40 MG tablet
40 mg PO QPM
mesalamine [Apriso] 0.375 GM capsule,extended release 24hr
0.75 g PO DAILY
pantoprazole 40 MG tablet,delayed release (DR/EC)
40 mg PO DAILY
potassium chloride 10 MEQ tablet,ER particles/crystals
10 meq PO DAILY
dofetilide 250 MCG capsule
250 mcg PO BID
Rx Instructions:
Take w/ 125mcg= 375mcg
dofetilide 125 MCG capsule
125 mcg PO BID
Rx Instructions:
Taken w/ 250mcg= 375mcg
furosemide 40 mg tablet
40 mg PO DAILY
carvedilol 6.25 mg tablet
6.25 mg PO BID
glipizide 5 mg Tablet
5 mg PO DAILY
Tradjenta 5 mg Tablet
5 mg PO DAILY
amlodipine 5 mg tablet
5 mg PO DAILY
cyanocobalamin (vitamin B-12) 1,000 mcg Tablet
1,000 mcg PO DAILY
coQ10 (ubiquinol) 100 mg Capsule
50 mg PO DAILY
fluticasone furoate-vilanterol [Breo Ellipta] 100-25 mcg/dose blister with device
1 inh INHALATION R DAILY
albuterol sulfate 90 mcg/actuation HFA aerosol inhaler
2 puff inhalation R Q6HPRN PRN (Reason: shortness of breath or wheezing)
Held
Xarelto 20 MG tablet
20 mg PO QPM
Hold Instructions: Resume on 06/06/25.
Discharge Orders:
Discharge Patient (As Directed); Ordered 06/05/25
Ordered By: Jorge Marino
Discharge Date and Time
Print Language: GREENLANDIC
[2025-06-05 12:24] LABS: Glucose - Point of Care 215 mg/dl (70-99)
[2025-06-05] MEDS: NSS IV (12:26)
[2025-06-05] MEDS: NOVOLOG FLEXPEN-LOW RESISTANCE 2 UNITS SC (12:47)
== END 2025-06-05 13:32 | disposition home or self-care (01) | DRG 398 ==
LOC: 2 SOUTH 21:25
PROVIDERS: Physician Assistant Medical; Surgery; ADMITTING PHYSICIAN Hospitalist; ATTENDING PHYSICIAN Hospitalist; EMERGENCY PHYSICIAN Emergency Medicine; FAMILY PHYSICIAN Internal Medicine; OTHER PHYSICIAN Surgery
PROC: 0DTJ4ZZ Resection of Appendix, Percutaneous Endoscopic Approach (ICD-10-PCS; 2025-06-04)
DX: K35.80 Unspecified acute appendicitis (principal); I13.0 Hypertensive heart and chronic kidney disease with heart failure and stage 1 through stage 4 chronic kidney disease, or unspecified chronic kidney disease; I50.22 Chronic systolic (congestive) heart failure; Z68.41 Body mass index [BMI] 40.0-44.9, adult; N18.30 Chronic kidney disease, stage 3 unspecified; E11.22 Type 2 diabetes mellitus with diabetic chronic kidney disease; E78.00 Pure hypercholesterolemia, unspecified; G47.33 Obstructive sleep apnea (adult) (pediatric); J44.9 Chronic obstructive pulmonary disease, unspecified; K52.839 Microscopic colitis, unspecified; E66.01 Morbid (severe) obesity due to excess calories; I25.10 Atherosclerotic heart disease of native coronary artery without angina pectoris; M19.90 Unspecified osteoarthritis, unspecified site; I44.7 Left bundle-branch block, unspecified; I48.0 Paroxysmal atrial fibrillation; I25.2 Old myocardial infarction; Z85.528 Personal history of other malignant neoplasm of kidney; Z87.01 Personal history of pneumonia (recurrent); Z87.19 Personal history of other diseases of the digestive system; Z95.5 Presence of coronary angioplasty implant and graft; Z90.5 Acquired absence of kidney; Z79.01 Long term (current) use of anticoagulants; Z79.51 Long term (current) use of inhaled steroids; Z79.84 Long term (current) use of oral hypoglycemic drugs; Z79.899 Other long term (current) drug therapy; Z86.0100 Personal history of colon polyps, unspecified; Z88.0 Allergy status to penicillin; Z91.041 Radiographic dye allergy status; Z87.11 Personal history of peptic ulcer disease
CPT/HCPCS: 74176; 80048; 80053; 82962; 83036; 83605; 85025; 85027; 85652; 86140; 87040; 88304; 93005; 94640; 96361; 96365; 96375; 99284

== ENCOUNTER 2025-06-07 15:20 | Emergency (ER) | payer MEDICARE, OTHER, SELFPAY ==
[2025-06-07 15:27] VITALS: BP 178/83
--- NOTE | 2025-06-07 15:53 | ED.GENMED ---
History of Present Illness
<Roma Martinez MD, Resident - Last Filed: 06/08/25 23:12>
General
Chief Complaint: Post Operative Problem(s)
Time Seen by Provider: 06/07/25 15:52
History of Present Illness
History of Present Illness:
84yo M with a hx of afib, CHF, HTN, HLD, T2DM, CKDIII, COPD, HEMANTH, R RCC s/p nephrectomy who presents 2 days s/p laparoscopic appendectomy with ongoing constipation and acute urinary retention.
Pt had lap appendectomy 2 days prior, surgery uneventful w/o complications. Pt with low appetite since surgery, minimal fluid & food intake. Has not had BM since discharge. performed fleet enema this afternoon. Pt has passed flatus today. Pt
was able to urinate post-op until this afternoon (a few hrs ago), at which point he had urge to urinate but was unable to initiate flow. Presented to ED 2/2 urinary retention.
Pt denies BPH or need for tamsulosin at home. No prior episodes of retention. Denies abd pain or n/v. Afebrile. Endorses significant perianal pain.
Pt was discharged 06/07 on tramadol 25mg q6h PRN.
Home meds: atorvastatin, mesalamine, pantoprazole, KCl, dofetilide, carvedilol, furosemide, flipizide, tradjenta, amlodipine, cyanocobalamin, coq10, breo ellipta, albuterol sulfate
Past History
<Roma Martinez MD, Resident - Last Filed: 06/08/25 23:12>
Past History
ED Past Medical History: Arrthythmia (Atrial fib), Asthma, CAD, Cancer (renal cell carcinoma on the right), CHF, COPD, HTN, Hypercholesterolemia, NIDDM, [place], Other (Patton's esophagitis, rectal bleeding) and Other (obstructive Sleep apnea,
pneumonia, edema, diverticulitis, stomach ulcers, arthritis, PNA); Negative Renal failure (stage III a)
ED Past Surgical History: Cardiac (PTCA, cardioversion 2019), Tonsilectomy, Urological (right nephrectomy secondary to renal cell carcinoma) and Other (rectal Fistula surgery)
Social History
Tobacco: Non-smoker
Alcohol: None
Drug: None
Personal:
Living: with family
Employment: Retired
Family History
Family History: Other
Review of Systems
<Roma Martinez MD, Resident - Last Filed: 06/08/25 23:12>
Review of Systems
All Other Systems: ROS reviewed and negative except as documented in HPI and ROS
Phy Exam
<Roma Martinez MD, Resident - Last Filed: 06/08/25 23:12>
General Physical Exam
General Presentation: moderate distress (appears uncomfortable)
General age: appears stated age
General Skin: warm and dry
General Habitus: elderly and obese
General Mental: anxious (uncomfortable, endorsing need to urinate )
Gastrointestinal Exam
Gastrointestinal Exam: non tender, soft and distended
Course
<Roma Martinez MD, Resident - Last Filed: 06/08/25 23:12>
Orders/Labs/Results
Orders:
Orders
06/07/25 16:14
Enema- Treatment ONCE
Type: Milk of Molasses
06/07/25 16:19
Bladder Scan- Treatment ONCE
06/07/25 17:01
Lidocaine 2% [Lidocaine Uro-Jet 2%] 1 syringe .ROUTE .STK-MED ONE
Vital Signs
Initial and Last Documented VS:
Initial Vital Signs
Temp Pulse Resp BP Pulse Ox
97.5 F 65 18 178/83 97
06/07/25 15:27 06/07/25 15:27 06/07/25 15:27 06/07/25 15:27 06/07/25 15:27
Last Documented Vital Signs
Temp Pulse Resp BP Pulse Ox
97.5 F 65 18 178/83 97
06/07/25 15:27 06/07/25 15:27 06/07/25 15:27 06/07/25 15:27 06/07/25 15:54
<Dk Green, DO - Last Filed: 06/07/25 18:37>
Orders/Labs/Results
Orders:
Orders
06/07/25 16:14
Enema- Treatment ONCE
Type: Milk of Molasses
06/07/25 16:19
Bladder Scan- Treatment ONCE
06/07/25 17:01
Lidocaine 2% [Lidocaine Uro-Jet 2%] 1 syringe .ROUTE .STK-MED ONE
Vital Signs
Initial and Last Documented VS:
Initial Vital Signs
Temp Pulse Resp BP Pulse Ox
97.5 F 65 18 178/83 97
06/07/25 15:27 06/07/25 15:27 06/07/25 15:27 06/07/25 15:27 06/07/25 15:27
Last Documented Vital Signs
Temp Pulse Resp BP Pulse Ox
97.5 F 65 18 178/83 97
06/07/25 15:27 06/07/25 15:27 06/07/25 15:27 06/07/25 15:27 06/07/25 15:54
<Roma Martinez MD, Resident - Last Filed: 06/08/25 23:12>
MDM/Problems Addressed
Differential Diagnosis Includes:
Urinary retention 2/2 post-op constipation & fecal impaction vs. post-op anesthesia complication vs. BPH
MDM/Problems Addressed:
Plan:
- Bladder US
- XR abdomen to eval stool burden
- Molasses enema
- Manual disimpaction if not effective
<Roma Martinez MD, Resident - Last Filed: 06/08/25 23:12>
*Pulse Oximetry
SaO2: 97
Oxygen Mode of Delivery: Room air
Patient hypoxic: no
*Critical Care Note
Total Time (30-74mins, 75-104mins- exclusive of procedures): Not Applicable
<Roma Martinez MD, Resident - Last Filed: 06/08/25 23:12>
Update Note
Update Note:
Pt able to void small amt of urine spontaneously prior to bladder scan. Still endorsing urge to urinate.
Update:
bladder US with 550mL. Pt refusing anvarro catheter. Straight catheterization done at bedside. Molasses enema done at bedside.
<Dk Green, DO - Last Filed: 06/07/25 18:37>
Update Note
Update Note:
Pt able to void small amt of urine spontaneously prior to bladder scan. Still endorsing urge to urinate.
Update:
bladder US with 550mL. Pt refusing navarro catheter. Straight catheterization done at bedside. Molasses enema done at bedside.
6:35 PM update large bowel movement feeling better
ED Attending Note
<Roma Martinez MD, Resident - Last Filed: 06/08/25 23:12>
-
Portions of this chart may have been created with voice recognition software.� Occasional wrong word or��sound alike� substitutions may have occurred due to the inherent limitations of voice recognition software.
<Dk Green, DO - Last Filed: 06/07/25 18:37>
ED Attending Note
Patient seen and examined by attending physician: Yes
I performed a history and physical exam of patient and discussed management with resident, I reviewed resident's note and agree with documented findings and plan of care.: Yes
ED Attending Note:
Seen with resident examined independently elderly male status post laparoscopic appendectomy 2 days ago presents constipated with urinary retention with dribbling no history of urinary issues, gets up 1 time a night to urinate, here bladder scan
over 500 refusing Navarro will let a straight cath him suspect he is going to need to be disimpacted and/or receiving enema
Discharge Plan
Departure
Patient Disposition: Home (Routine Discharge)
Date of Disposition: 06/07/25
Time of Disposition: 18:36
Patient with high blood pressure during this ER visit?: No
Condition: Good
Discharge Problem:
Acute urinary obstruction, Constipation
Instructions: Constipation, Adult (DC)
Prescriptions:
New
magnesium citrate [Citroma] Solution
150 ml PO DAILY PRN (Reason: Constipation) Qty: 296 4RF
No Action
atorvastatin 40 MG tablet
40 mg PO QPM
Xarelto 20 MG tablet
20 mg PO QPM
mesalamine [Apriso] 0.375 GM capsule,extended release 24hr
0.75 g PO DAILY
pantoprazole 40 MG tablet,delayed release (DR/EC)
40 mg PO DAILY
potassium chloride 10 MEQ tablet,ER particles/crystals
10 meq PO DAILY
dofetilide 250 MCG capsule
250 mcg PO BID
Rx Instructions:
Take w/ 125mcg= 375mcg
dofetilide 125 MCG capsule
125 mcg PO BID
Rx Instructions:
Taken w/ 250mcg= 375mcg
furosemide 40 mg tablet
40 mg PO DAILY
carvedilol 6.25 mg tablet
6.25 mg PO BID
glipizide 5 mg Tablet
5 mg PO DAILY
Tradjenta 5 mg Tablet
5 mg PO DAILY
amlodipine 5 mg tablet
5 mg PO DAILY
cyanocobalamin (vitamin B-12) 1,000 mcg Tablet
1,000 mcg PO DAILY
coQ10 (ubiquinol) 100 mg Capsule
50 mg PO DAILY
fluticasone furoate-vilanterol [Breo Ellipta] 100-25 mcg/dose blister with device
1 inh INHALATION R DAILY
albuterol sulfate 90 mcg/actuation HFA aerosol inhaler
2 puff inhalation R Q6HPRN PRN (Reason: shortness of breath or wheezing)
tramadol 25 mg tablet
25 mg PO Q6H PRN (Reason: mod sev pain) Qty: 10 0RF
Referrals:
Macy Spring DO [Family Provider, Internal Medicine] - Next open appointment
Activity Restrictions/Additional Instructions:
Return to the ER for recurrent or worsening symptoms or any other concerns
Interventions
Interventions:
*Risk Screen - Suicide Last Done: 06/07/25 15:27
*General Assessment Last Done: 06/07/25 17:15
*Neglect/Abuse Screening Last Done: 06/07/25 17:15
*ED- Fall Risk Assessment Last Done: 06/07/25 17:15
*ED COVID-19 Vaccine History Last Done: 06/07/25 17:15
*ED Influenza Vaccine History Last Done: 06/07/25 17:15
*Nursing Disposition Last Done: 06/07/25 18:52
KQ-Weblsi-Emxnlsufrc Assessment Last Done: 06/07/25 17:15
ED-Skin Assessment Last Done: 06/07/25 17:15
Discharge Date and Time
Discharge Date/Time: 06/07/25 18:52
Print Language: TELUGU
== END 2025-06-07 18:52 | disposition home or self-care (01) ==
LOC: EMR 15:20
PROVIDERS: EMERGENCY PHYSICIAN Emergency Medicine; FAMILY PHYSICIAN Internal Medicine
DX: N13.9 Obstructive and reflux uropathy, unspecified (principal); K59.00 Constipation, unspecified; I13.0 Hypertensive heart and chronic kidney disease with heart failure and stage 1 through stage 4 chronic kidney disease, or unspecified chronic kidney disease; I50.9 Heart failure, unspecified; E11.22 Type 2 diabetes mellitus with diabetic chronic kidney disease; N18.30 Chronic kidney disease, stage 3 unspecified; J44.89 Other specified chronic obstructive pulmonary disease; E78.00 Pure hypercholesterolemia, unspecified; G47.33 Obstructive sleep apnea (adult) (pediatric); I25.10 Atherosclerotic heart disease of native coronary artery without angina pectoris; I48.91 Unspecified atrial fibrillation; M19.90 Unspecified osteoarthritis, unspecified site; Z79.51 Long term (current) use of inhaled steroids; Z85.528 Personal history of other malignant neoplasm of kidney; Z87.01 Personal history of pneumonia (recurrent); Z87.11 Personal history of peptic ulcer disease; Z87.19 Personal history of other diseases of the digestive system; Z90.49 Acquired absence of other specified parts of digestive tract; Z90.5 Acquired absence of kidney
CPT/HCPCS: 99282